=== PATIENT | female | born 1935 | race Caucasian/White ===

== ENCOUNTER → 2016-09-02 | Outpatient (REF) | payer MEDICARE ==
[~2016-09-02] MED LIST: ACET50TA PO; ASPI81TA85 PO; BISO5TAB54 PO; CALC600T7 PO; CALCTAB43 PO; CARB25TA PO; COLA100C PO; COUM2.5T11 PO; COZA50TA PO; DICL13PA TD; DRISDOL PO; FURO40TA2 PO; GABA300C3 PO; LASI20TA PO; LEVE250T2 PO; LEVO100T5 PO; LEVOXYL PO; LIDO1DIS2 TD; LIDO5DIS36 TD; LOSA25TA8 PO; LOSA50TA20 PO; METO25TA PO; MIRA1.5T2 PO; MULTCAP PO; MULTTAB33 PO; NATU400T PO; NEUR300C PO; NYST-6 TOP; NYST100024 TOP; NYST10006 TOP; NYST10CR EXT; NYST10PW TOP; OXYC1TAB23 PO; PERC5TAB6 PO; PRAM1.5T2 PO; PRAV80TA PO; PRAV80TA2 PO; SENO8.6T2 PO; SINE25TA5 PO; SINEMET PO; TYLENOL PO; VITA-130 PO; VITA100066 PO; VITA50003 PO; VITA500T88 PO; WOMECAP2 PO; ZEBE5TAB PO; [UNRECOGNIZED DRUG - SUPPLY]; astelin
[2016-09-02 12:37] LABS: ALBUMIN 3.5 GM/DL (3.2-5.2); ALBUMIN/GLOBULIN RATIO 1.17 (1.00-1.93); BILIRUBIN,TOTAL 0.3 MG/DL (0.2-1.0); CALCIUM LEVEL 9.1 MG/DL (8.8-10.2); CREATININE FOR GFR 1.04 MG/DL (0.55-1.02); FREE T4 1.09 NG/DL (0.76-1.46); GLOMERULAR FILTRATION RATE 54.3 (>32); POTASSIUM SERUM 4.5 MEQ/L (3.5-5.1); TOTAL PROTEIN 6.5 GM/DL (6.4-8.2)
== END ==
LOC: M SFHCPLAZ 08:53
PROVIDERS: ATTEND Nurse Practitioner Family
DX: I10 Essential (primary) hypertension (principal); E03.9 Hypothyroidism, unspecified; E55.9 Vitamin D deficiency, unspecified

== ENCOUNTER 2017-01-16 11:41 | Observation (INO) | payer MEDICARE ==
[~2017-01-16] VITALS: Ht 160 cm; Wt 103.8 kg
[~2017-01-16 11:41] MED LIST changes: -COLA100C PO; +COLA100C5 PO; -COUM2.5T11 PO; +COUM2.5T17 PO; +GABA-282 PO; -GABA300C3 PO; -LIDO5DIS36 TD; +LIDO5DIS41 TD; -NYST100024 TOP; +NYST1POW9 TOP; +PERC5TAB12 PO; -PERC5TAB6 PO; -SENO8.6T2 PO; +SENO8.6T5 PO; -VITA-130 PO; +VITA1CAP40 PO; -VITA50003 PO; +VITA500T PO
[2017-01-16 14:41] LABS: BASO % 0.4 % (0.0-1.0); EOS # 0.2 K/mm3 (0.0-0.50); EOS % 2.1 % (0.0-3.0); LARGE UNSTAINED CELL # 0.2 K/mm3 (0.0-0.4); LYMPH # 1.1 K/mm3 (1.5-4.5); LYMPH % 11.9 % (24.0-44.0); MEAN CORPUSCULAR HEMOGLOBIN 31.7 pg (27.0-33.0); MEAN CORPUSCULAR HGB CONC 33.6 g/dl (32.0-36.5); MEAN CORPUSCULAR VOLUME 94.4 fl (80.0-96.0); MONO # 0.4 K/mm3 (0.0-0.8); MONO % 4.7 % (0.0-5.0); NEUTROPHILS # 6.2 K/mm3 (1.8-7.7); PLATELET COUNT, AUTOMATED 196 k/mm3 (150-450); RED CELL DISTRIBUTION WIDTH 13.7 % (11.5-14.5); WHITE BLOOD COUNT 7.9 K/mm3 (4.0-10.0)
[2017-01-16 14:48] LABS: INR 0.96
[2017-01-16 15:08] LABS: ALBUMIN 3.6 GM/DL (3.2-5.2); ALBUMIN/GLOBULIN RATIO 1.13 (1.00-1.93); ALKALINE PHOSPHATASE 70 U/L (45-117); ALT/SGPT 19 U/L (12-78); ANION GAP 9 MEQ/L (8-16); AST/SGOT 14 U/L (15-37); BILIRUBIN,DIRECT 0.1 MG/DL (0.0-0.2); BILIRUBIN,TOTAL 0.4 MG/DL (0.2-1.0); BLOOD UREA NITROGEN 33 MG/DL (7-18); CALCIUM LEVEL 9.4 MG/DL (8.8-10.2); CARBON DIOXIDE LEVEL 32 MEQ/L (21-32); CHLORIDE LEVEL 98 MEQ/L (98-107); CREATININE FOR GFR 1.12 MG/DL (0.55-1.02); GLOMERULAR FILTRATION RATE 49.7 (>32); GLUCOSE, FASTING 109 MG/DL (83-110); SODIUM LEVEL 139 MEQ/L (136-145); TOTAL PROTEIN 6.8 GM/DL (6.4-8.2)
--- NOTE | 2017-01-16 15:54 | REP ---
AP and lateral seated chest: 01/16/2017 Comparison 11/10/2015, 07/26/2015. Clinical history: Dyspnea and cough. Findings: Two-view show the lungs hypoinflated, however, the heart size is not enlarged for this degree of inflation for technique. The aorta is calcified at the arch, mildly tortuous and there is some dextroconvex curvature of the mid and upper thoracic spine. Some underlying interstitial fibrotic changes seen. I do not see dense consolidation or definite effusion. No parenchymal mass or nodule. Degenerative changes and demineralization in the spine without acute compression deformity. Impression: 1. Hypoinflated chest with crowded markings but no dense consolidation, pleural effusion, cardiomegaly or nikolas edema. 2. Calcified tortuous aorta without aneurysm. Airway intact. 3. Degenerative changes in the spine. Signed by Frankie Bowens MD 01/16/2017 09:23 P
[2017-01-16] MEDS ORDERED: ISOVUE-370 76% 100ML VIAL (Q9967) As Ordered ONE (15:56)
[2017-01-16] MEDS ORDERED: NS 500 ML IV ONE (16:00)
--- NOTE | 2017-01-16 16:55 | REP ---
BILATERAL LOWER EXTREMITY DUPLEX VEINS: RIGHT LOWER EXTREMITY: HISTORY: Edema right lower extremity. There are no filling defects in the deep venous system. The deep venous system is patent. IMPRESSION: There is no deep venous thrombosis. LEFT LOWER EXTREMITY: There are no filling defects in the deep venous system. The deep venous system is patent. IMPRESSION: There is no deep venous thrombosis. Signed by Derek Dimas MD 01/16/2017 05:12 P
--- NOTE | 2017-01-16 17:04 | REP ---
CT angio chest 01/16/2017: Comparison 08/10/2013, chest x-ray 01/16/2017, 11/10/2015. History: Dyspnea, cough, elevated D-dimer. Lungs are adequately inflated. There is some minor dependent atelectatic changes posteriorly in the mid lower lung zones. There is some underlying minor basilar fibrotic changes but no pleural effusion, dense consolidation or parenchymal mass. Pleural based nodule left lower lobe is actually slightly smaller than last years CT in 2013. Heart size is borderline with left atrial enlargement but no pericardial thickening or effusion. The aorta is without aneurysm or dissection and has calcifications at the arch. The main, right and left pulmonary arteries and the mediastinum are without filling defects. Lobar arteries are also without filling defects. In the right lower lobe. The segmental vessels to the medial basal segment lateral basal segment show vessel cutoff and little or no flow. This is a change from the previous study suggesting a thrombus in both. The right lung base shows lateral basal segment poor flow suggesting a partial thrombus. There was better flow on the 2014 study. Mid midlung zones and upper lobes grossly intact. That portion of liver and spleen included were unchanged. No hiatal hernia. The upper abdominal aorta without aneurysm. Adrenal glands with some slight thickening of limbs but otherwise intact. Only a portion of liver and pancreas included were grossly intact. Impression: 1. There is CT evidence of vessel cutoff involving both lower lung zones in the medial lateral basal segments with poor flow in these vessels compared to the 2014 study. This may chronic or acute. Central pulmonary arteries and lobar arteries without filling defects. 2. The thoracic aorta without aneurysm or dissection. 3. Slightly smaller pleural-based nodule left upper lobe compared to the 2014 study. Some underlying dependent atelectasis and fibrosis. Signed by Frankie Bowens MD 01/16/2017 09:25 P
--- NOTE | 2017-01-16 18:43 | ECGEPIP ---
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 Order Number: [id number] Reading MD: Navid Kelly Measurements Intervals [place] Rate: 64 P: ME: 0 QRS: -21 QRSD: 113 T: -47 QT: 424 QTc: 439 Interpretive Statements SINUS RHYTHM WITH FIRST DEGREE AV BLOCK BORDERLINE LEFT AXIS DEVIATION MODERATE INTRAVENTRICULAR CONDUCTION DELAY BASELINE ARTIFACT AFFECTS INTERPRETATION Electronically Signed On 01-16-2017 18:43:18 EDT by Navid Kelly
[2017-01-16] MEDS ORDERED: ONDANSETRON 4MG/2ML VIAL (J2405) IV PRN (18:45)
[2017-01-16] MEDS ORDERED: ACETAMINOPHEN TAB 650MG DOSE (2X325MG) PO PRN (18:45)
--- NOTE | 2017-01-16 19:33 | HPEPDOC ---
Medical History and Physical Date of Admission Jan 16, 2017 at 18:34 History and Physical PRIMARY CARE PROVIDER: Adela Riojas ATTENDING: Dr. Osorio Rossi CHIEF COMPLAINT: Cough HISTORY OF PRESENT ILLNESS: This is a 81-year-old female past medical history Parkinson's disease, hypertension, hypothyroidism, hyperlipidemia, CK D stage III, baseline creatinine 1.1-1.2 presents complaining of a cough. Patient states she's had this nonproductive cough over the past 3-4 days. No fevers or chills. No nausea/vomiting/abdominal pain. Patient occasionally has palpitations. No chest pain. Does have dyspnea on exertion with mild to moderate exertion over the past year. Occasionally has PND. Sleeps on 2 pillows however does not know if she has orthopnea. States she has to falls over the past month however she's typically pretty stable on her feet as she's walking with a walker. In the ED patient had a CT of the chest which noted an acute versus chronic bilateral pulmonary embolism. Patient states she would like to be started on blood thinners tonight and we will consider continuing the blood thinners tomorrow. Risks and benefits of blood thinners including the treatment of her pulmonary embolism versus the risk of bleeding have been explained to the patient as well as the . PAST MEDICAL HISTORY: As per HPI PAST SURGICAL HISTORY: Right breast biopsy, varicose vein stripping, L4 laminectomy, knee surgery, back surgery SOCIAL HISTORY: Denies tobacco, alcohol, illicit drug use. Lives with her , walks with a walker. Breathing FAMILY HISTORY: noncontributory ALLERGIES: Please see below. REVIEW OF SYSTEMS: HEENT: Denies sore throat/headache CARDIOVASCULAR: Denies chest pain/palpitations RESPIRATORY: + shortness of breath/cough GASTROINTESTINAL: denies nausea/vomiting GENITOURINARY: Denies dysuria/urinary urgency. MUSCULOSKELETAL: Denies myalgias/arthralgias NEUROLOGICAL: Denies any focal weakness HOME MEDICATIONS: Please see below. PHYSICAL EXAMINATION: Vitals: (see below) General: No acute distress, laying comfortably in bed. HEENT: Moist mucous membranes. Neck: No JVD or lymphadenopathy Cardiac: RRR, No murmurs Pulm: Minimal coarse crackles at the bases bilaterally b/l. No wheezing, rhonchi Abd: NT/ND + BS Ext: 1+ edema bilateral lower extremities. Distal pulses intact. LABORATORY DATA: See below. IMAGING: CTA chest on 01/16/17 Impression: 1. There is CT evidence of vessel cutoff involving both lower lung zones in the medial lateral basal segments with poor flow in these vessels compared to the 2014 study. This may chronic or acute. Central pulmonary arteries and lobar arteries without filling defects. 2. The thoracic aorta without aneurysm or dissection. 3. Slightly smaller pleural-based nodule left upper lobe compared to the 2014 study. Some underlying dependent atelectasis and fibrosis. Bilateral lower extremity ultrasound negative for DVT 01/16/17 MICROBIOLOGY: Please see below. ASSESSMENT/PLAN: 1. Bilateral pulmonary embolus, acute versus chronic. We'll start the patient on Lovenox tonight pending determination of the patient's willingness to continue her blood thinners. If so, NOAC vs coumadin to be considered. Patient is hemodynamically stable and not hypoxic. We will obtain echocardiogram to determine RV function. The patient's the safety with ambulation to be assessed by physical therapy. Her on telemetry, especially given her history of palpitations. 2. Parkinson's disease- continue meds 3. Chronic disease stage III Baseline creatinine 1.1-1.2. Stable. Avoid nephrotoxins. Strict I/O 4. Hypothyroidism- continue meds 5. Hyperlipidemia- continue meds DVT prophylaxis- Lovenox Prognosis- guarded The patient has been signed out to Dr. Osorio Rossi we will continue following the patient. Vital Signs Vital Signs Date Time Temp Pulse Resp B/P (MAP) Pulse Ox O2 Delivery O2 Flow Rate FiO2 01/16/17 18:17 66 137/63 (87) 96 01/16/17 11:54 97.8 16 Room Air Laboratory Data Labs 24H Laboratory Tests 2 01/16/17 14:30: White Blood Count 7.9, Red Blood Count 3.96L, Hemoglobin 12.6, Hematocrit 37.4, Mean Corpuscular Volume 94.4, Mean Corpuscular Hemoglobin 31.7, Mean Corpuscular Hemoglobin Concent 33.6, Red Cell Distribution Width 13.7, Platelet Count 196, Neutrophils (%) (Auto) 79.0H, Lymphocytes (%) (Auto) 11.9L, Monocytes (%) (Auto) 4.7, Eosinophils (%) (Auto) 2.1, Basophils (%) (Auto) 0.4, Neutrophils # (Auto) 6.2, Lymphocytes # (Auto) 1.1L, Monocytes # (Auto) 0.4, Eosinophils # (Auto) 0.2, Basophils # (Auto) 0.0, Large Unclassified Cells % 2.0 , Large Unclassified Cells # 0.2, Prothrombin Time 12.9, Prothromb Time International Ratio 0.96, D-Dimer, Quantitative 2856.4H, Anion Gap 9, Glomerular Filtration Rate 49.7, Calcium Level 9.4, Aspartate Amino Transf (AST/ SGOT) 14L, Alanine Aminotransferase (ALT/SGPT) 19, Alkaline Phosphatase 70, Total Bilirubin 0.4, Direct Bilirubin 0.1, Total Creatine Kinase 42, Creatine Kinase MB 1.0, Creatine Kinase MB Relative Index 2.38, Troponin I < 0.02, B- Type Natriuretic Peptide 91.5, Total Protein 6.8, Albumin 3.6, Albumin/Globulin Ratio 1.13 01/16/17 19:02: CBC/BMP Laboratory Tests 01/16/17 14:30 Red Blood Count 3.96 L, Mean Corpuscular Volume 94.4, Mean Corpuscular Hemoglobin 31.7, Mean Corpuscular Hemoglobin Concent 33.6, Red Cell Distribution Width 13.7, Neutrophils (%) (Auto) 79.0 H, Lymphocytes (%) (Auto) 11.9 L, Monocytes (%) (Auto) 4.7, Eosinophils (%) (Auto) 2.1, Basophils (%) ( Auto) 0.4, Neutrophils # (Auto) 6.2, Lymphocytes # (Auto) 1.1 L, Monocytes # ( Auto) 0.4, Eosinophils # (Auto) 0.2, Basophils # (Auto) 0.0 Home Medications Scheduled Alpha Tocopheryl Acid Succinat (Vitamin E) 400 Unit Tab, 400 UNIT PO DAILY Ascorbic Acid (Vitamin C) 500 Mg Tab, 500 MG PO DAILY Aspirin (Aspir-81) 81 Mg Tab, 81 MG PO DAILY Bisoprolol Fumarate (Zebeta) 5 Mg Tab, 5 MG PO DAILY Calcium/Vitamin D (Calcium + D3 600-200 mg-Unit) 1 Tab Tab, 1 TAB PO QHS Carbidopa/Levodopa (Sinemet 25-100 mg) 1 Tab Tab, 1 TAB PO QID Cholecalciferol (Vitamin D) 1,000 Unit Tab, 1,000 UNIT PO DAILY Docusate Sodium (Colace) 100 Mg Cap, 100 MG PO BID Ergocalciferol (Vitamin D) 50,000 Unit Cap, 50,000 UNIT PO 1XWK MONDAY Furosemide (Furosemide) 40 Mg Tab, 40 MG PO BID Gabapentin (Gabapentin) 300 Mg Cap, 300 MG PO QHS Levothyroxine Sodium (Synthroid) 100 Mcg Tab, 100 MCG PO DAILY Losartan Potassium (Losartan Potassium) 25 Mg Tab, 25 MG PO QHS Pramipexole Dihydrochloride (Pramipexole Dihydrochlori) 1.5 Mg Tab, 1.5 MG PO BID Pravastatin Sodium (Pravachol) 80 Mg Tab, 80 MG PO DAILY Scheduled PRN Nystatin (Nystatin Powder) 100,000 Unit/Gm Pow, 1 DOSE TOP BIDP PRN for RASH APPLIED UNDER BREAST AND TO GROIN Senna (Senokot) 8.6 Mg Tab, 2 TAB PO QHSP PRN for CONSTIPATION Allergies Coded Allergies: No Known Drug Allergy (Unverified Allergy, Unknown, 09/19/12) DANIEL SWAIN MD Jan 16, 2017 19:33
--- NOTE | 2017-01-16 19:35 | ECGEPIP ---
Stationary ECG Study 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 Probable sinus rhythm Left axis deviation. Incomplete LBBB. Nonspecific ST/T-wave abnormalities No change from tracing earlier this same day Electronically Signed On 01-16-2017 19:34:41 EDT by Arvind Costa
[2017-01-16] MEDS ORDERED: METO25TA PO (19:44)
[2017-01-16] MEDS ORDERED: ASPI81TAEC PO (19:44)
[2017-01-16] MEDS ORDERED: BISO5TAB5 PO (19:44)
[2017-01-16] MEDS ORDERED: NYST10CR EXT (19:44)
[2017-01-16] MEDS ORDERED: POTA10CA PO (19:44)
[2017-01-16] MEDS ORDERED: GABA-279 PO (19:44)
[2017-01-16] MEDS ORDERED: VITMTA PO (19:44)
[2017-01-16] MEDS ORDERED: VIVIX PO (19:44)
[2017-01-16 20:08] LABS: INR 1.01
[2017-01-16] MEDS ORDERED: SLF 3 ML SYR IV PRN (20:15)
[2017-01-16] MEDS: POTASSIUM CHLORIDE 10 MEQ SR TABLET PO SCH (21:51)
[2017-01-16] MEDS: ENOXAPARIN 100MG/1ML SYRINGE (J1650) SC SCH (21:51)
[2017-01-16] MEDS: GABAPENTIN 100 MG CAP PO SCH (21:51)
[2017-01-16] MEDS: SINEMET 25-100 MG TAB PO SCH (21:52)
[2017-01-16] MEDS: LOSARTAN 25 MG TAB PO SCH (21:52)
[2017-01-16] MEDS: PRAMIPEXOLE 1 MG TAB PO SCH (21:53)
[2017-01-16] MEDS: SLF 3 ML SYR IV SCH (21:54)
[2017-01-16 23:59] VITALS: BP 112/57
[2017-01-17 04:33] VITALS: BP 122/59
[2017-01-17 04:38] LABS: MEAN CORPUSCULAR HEMOGLOBIN 31.7 pg (27.0-33.0); MEAN CORPUSCULAR HGB CONC 33.6 g/dl (32.0-36.5); MEAN CORPUSCULAR VOLUME 94.4 fl (80.0-96.0); RED CELL DISTRIBUTION WIDTH 13.8 % (11.5-14.5); WHITE BLOOD COUNT 6.4 K/mm3 (4.0-10.0)
[2017-01-17 05:22] LABS: ANION GAP 9 MEQ/L (8-16); BLOOD UREA NITROGEN 26 MG/DL (7-18); CALCIUM LEVEL 8.8 MG/DL (8.8-10.2); CARBON DIOXIDE LEVEL 31 MEQ/L (21-32); CHLORIDE LEVEL 100 MEQ/L (98-107); CREATININE FOR GFR 0.93 MG/DL (0.55-1.02); GLOMERULAR FILTRATION RATE > 60.0 (>32); GLUCOSE, FASTING 100 MG/DL (83-110); MAGNESIUM LEVEL 2.5 MG/DL (1.8-2.4); POTASSIUM SERUM 3.6 MEQ/L (3.5-5.1); SODIUM LEVEL 140 MEQ/L (136-145)
[2017-01-17] MEDS: SLF 3 ML SYR IV SCH ×3 (06:00→21:07)
[2017-01-17 07:46] VITALS: BP 138/65
[2017-01-17] MEDS: BISOPROLOL FUMARATE 5 MG TAB PO SCH (08:49)
[2017-01-17] MEDS: FUROSEMIDE 40 MG TAB PO SCH ×2 (08:49→12:28)
[2017-01-17] MEDS: ENOXAPARIN 100MG/1ML SYRINGE (J1650) SC SCH (08:49)
[2017-01-17] MEDS: LEVOTHYROXINE 100MCG TABLET (0.1MG) PO SCH (08:49)
[2017-01-17] MEDS: PRAMIPEXOLE 1 MG TAB PO SCH ×2 (08:50→17:33)
[2017-01-17] MEDS: SINEMET 25-100 MG TAB PO SCH ×4 (08:50→21:06)
[2017-01-17] MEDS ORDERED: NYSTATIN 100,000 UNITS/GM TOPICAL PWD 15 GM TOP PRN (09:30)
--- NOTE | 2017-01-17 10:48 | IPNPDOC ---
Subjective Date Seen The patient was seen on 01/17/17. Subjective Chief Complaint/HPI The patient is a 81-year-old female admitted with a reason for visit of Pulmonary Embolism. Events since last encounter Pt this mornins without new concerns. She reports that she feels like she has a cold, has had a cough that comes and goes and associated with the cough is burning sensation in her chest. She isn't really sure how long this has been present. She denies any SOB more than usual assoc with her symptoms. General: Denies: Fatigue Constitutional: Denies: Chills, Fever Pulmonary: Reports: Cough, Denies: Dyspnea Cardiovascular: Denies: Chest Pain, Palpitations Gastrointestinal: Denies: Nausea, Vomiting, Diarrhea Musculoskeletal: Denies: Neck Pain Neurological: Denies: Weakness Psych: Reports: Mood Normal Objective Physical Examination General Exam: Positive: Alert, No Acute Distress ENT Exam: Positive: Mucous membr. moist/pink Neck Exam: Positive: Supple Chest Exam: Positive: Clear to auscultation, Diminished Heart Exam: Positive: Rate Normal, Normal S1, Normal S2 Abdomen Exam: Positive: Normal bowel sounds, Soft, Negative: Tenderness Extremity Exam: Negative: Edema Neuro Exam: Positive: Normal Speech Psych Exam: Positive: Mental status NL Assessment /Plan Problems (1) Pulmonary embolism Status: Acute Response to Treatment: Stable Discussed With: Nurse, Patient Problem Specific Plan: Monitor Clinically, Repeat Labs Problem Text: Acute vs subacute - pt reports being rather sedentary, no recent falls or trauma. She is currently on Lovenox 100 mg per kg for treatment of her PE. D/w patient and and agreed on apixiban-will start tonight when Lovenox would be due (vit C and asa 81 are held-no h/o CVA/[place]-taking for primary prevention) 01/16/17 CTA chest [address] is CT evidence of vessel cutoff involving both lower lung zones in the medial lateral basal segments with poor flow in these vessels compared to the 2014 study. This may chronic or acute. Central pulmonary arteries and lobar arteries without filling defects 01/16/17 - BLE DVT US (2) Parkinson disease Status: Chronic Response to Treatment: Stable Problem Specific Plan: Monitor Clinically Problem Text: This increases her fall risk although she reports no recent falls and the fall she suffered several months ago were in relation to loose throw rugs in her home which have since bene removed. (3) CKD (chronic kidney disease) stage 3, GFR 30-59 ml/min Status: Chronic Response to Treatment: Stable Problem Specific Plan: Monitor Clinically Problem Text: baseline cr 0.9-1.0 Plan/VTE VTE Prophylaxis Ordered?: Yes VS, I&O, 24H, Fishbone Vital Signs/I&O Vital Signs Date Time Temp Pulse Resp B/P (MAP) Pulse Ox O2 Delivery O2 Flow Rate FiO2 01/17/17 08:49 62 138/65 01/17/17 07:46 97.5 18 97 Room Air I&O- Last 24 Hours up to 6 AM 01/17/17 06:00 Intake Total 0 ml Output Total 350 ml Balance -350 ml Laboratory Data 24H LABS Laboratory Tests 2 01/16/17 14:30: White Blood Count 7.9, Red Blood Count 3.96L, Hemoglobin 12.6, Hematocrit 37.4, Mean Corpuscular Volume 94.4, Mean Corpuscular Hemoglobin 31.7, Mean Corpuscular Hemoglobin Concent 33.6, Red Cell Distribution Width 13.7, Platelet Count 196, Neutrophils (%) (Auto) 79.0H, Lymphocytes (%) (Auto) 11.9L, Monocytes (%) (Auto) 4.7, Eosinophils (%) (Auto) 2.1, Basophils (%) (Auto) 0.4, Neutrophils # (Auto) 6.2, Lymphocytes # (Auto) 1.1L, Monocytes # (Auto) 0.4, Eosinophils # (Auto) 0.2, Basophils # (Auto) 0.0, Large Unclassified Cells % 2.0 , Large Unclassified Cells # 0.2, Prothrombin Time 12.9, Prothromb Time International Ratio 0.96, D-Dimer, Quantitative 2856.4H, Anion Gap 9, Glomerular Filtration Rate 49.7, Calcium Level 9.4, Aspartate Amino Transf (AST/ SGOT) 14L, Alanine Aminotransferase (ALT/SGPT) 19, Alkaline Phosphatase 70, Total Bilirubin 0.4, Direct Bilirubin 0.1, Total Creatine Kinase 42, Creatine Kinase MB 1.0, Creatine Kinase MB Relative Index 2.38, Troponin I < 0.02, B- Type Natriuretic Peptide 91.5, Total Protein 6.8, Albumin 3.6, Albumin/Globulin Ratio 1.13 01/16/17 19:02: Prothrombin Time 13.4, Prothromb Time International Ratio 1.01, Total Creatine Kinase 40, Creatine Kinase MB 1.0, Creatine Kinase MB Relative Index 2.50, Troponin I < 0.02 01/17/17 04:04: Anion Gap 9, Glomerular Filtration Rate > 60.0, Calcium Level 8.8, Total Creatine Kinase 41, Creatine Kinase MB 1.0, Creatine Kinase MB Relative Index 2.43, Troponin I < 0.02, Blood Urea Nitrogen 26H, Creatinine 0.93, Sodium Level 140, Potassium Level 3.6, Chloride Level 100, Carbon Dioxide Level 31, Magnesium Level 2.5H 01/17/17 09:48: Total Creatine Kinase 44, Creatine Kinase MB 1.0, Creatine Kinase MB Relative Index 2.27, Troponin I < 0.02 CBC/BMP Laboratory Tests 01/16/17 14:30 Red Blood Count 3.96 L, Mean Corpuscular Volume 94.4, Mean Corpuscular Hemoglobin 31.7, Mean Corpuscular Hemoglobin Concent 33.6, Red Cell Distribution Width 13.7, Neutrophils (%) (Auto) 79.0 H, Lymphocytes (%) (Auto) 11.9 L, Monocytes (%) (Auto) 4.7, Eosinophils (%) (Auto) 2.1, Basophils (%) ( Auto) 0.4, Neutrophils # (Auto) 6.2, Lymphocytes # (Auto) 1.1 L, Monocytes # ( Auto) 0.4, Eosinophils # (Auto) 0.2, Basophils # (Auto) 0.0 01/17/17 04:04 Red Blood Count 3.67 L, Mean Corpuscular Volume 94.4, Mean Corpuscular Hemoglobin 31.7, Mean Corpuscular Hemoglobin Concent 33.6, Red Cell Distribution Width 13.8, Calcium Level 8.8 DUSTIN SHANNON PA-C Jan 17, 2017 10:48 Blair Madden M.D. Jan 17, 2017 15:14
[2017-01-17 11:29] VITALS: BP 117/62
[2017-01-17 15:51] VITALS: BP 103/53
[2017-01-17] MEDS: POTASSIUM CHLORIDE 10 MEQ SR TABLET PO SCH (17:33)
[2017-01-17 19:33] VITALS: BP 110/53
[2017-01-17] MEDS ORDERED: ASCORBIC ACID 500 MG TAB PO SCH (21:00)
[2017-01-17] MEDS: GABAPENTIN 100 MG CAP PO SCH (21:06)
[2017-01-17] MEDS: LOSARTAN 25 MG TAB PO SCH (21:06)
[2017-01-17] MEDS: APIXABAN 5 MG TAB (ELIQUIS) PO SCH (21:06)
--- NOTE | 2017-01-17 21:21 | ECHO ---
DATE OF PROCEDURE: 01/17/2017 REFERRING PHYSICIAN: Dr. Arley Thomas and Dr. Rossi INDICATION: Pulmonary embolism. Study was performed on 01/17/2017. The patient measures 160 cm and weighs 104 kg. DIMENSIONS: IVS: 1.1 LV: 5.3 LVPW: 1.1 LA: 4.2 Aorta: 2.9 FINDINGS: The study is of fair technical quality corresponding to patient's body habitus. Left ventricle is of normal size and systolic function with estimated ejection fraction (EF) around 60-65%. Right ventricle was relatively poorly seen. It is not dilated and appears to be normally contractile. Left atrium is at least mildly enlarged, right atrium appears normal. No pericardial effusion is noted. Aortic, mitral and tricuspid valves were reasonably well seen and appear normal. Pulmonic valve was not well seen. Inferior vena cava is of normal size and appropriately collapses with respiration indicative of likely normal central venous pressure. Aortic root is normal. Aortic arch was not well seen. There is atherosclerosis apparent in abdominal aorta. Doppler interrogation reveals competent aortic and mitral valves. There is also no significant tricuspid insufficiency and consequently pulmonary artery pressure was not adequately estimated. Mitral inflow pattern and tissue Doppler imaging of mitral annulus revealed grade 1 diastolic dysfunction. CONCLUSIONS: 1. Study is of fair technical quality. 2. Normal LV size with normal LV systolic function and grade 1 diastolic dysfunction. 3. Normal RV size and systolic function. 4. No significant valvular disease. 5. Likely normal central venous pressure. 6. Unable to estimate pulmonary artery pressure. COMMENTS: Subacute bacterial endocarditis (SBE) prophylaxis is not recommended. The study argues against hemodynamic significance of pulmonary embolism.
[2017-01-17 23:52] VITALS: BP 112/55
[2017-01-18 03:57] VITALS: BP 115/57
[2017-01-18] MEDS: SLF 3 ML SYR IV SCH ×3 (05:31→21:50)
[2017-01-18 05:58] LABS: MEAN CORPUSCULAR HEMOGLOBIN 32.3 pg (27.0-33.0); MEAN CORPUSCULAR HGB CONC 33.9 g/dl (32.0-36.5); MEAN CORPUSCULAR VOLUME 95.3 fl (80.0-96.0); RED CELL DISTRIBUTION WIDTH 13.8 % (11.5-14.5)
[2017-01-18 06:15] LABS: CREATININE FOR GFR 0.99 MG/DL (0.55-1.02); GLOMERULAR FILTRATION RATE 57.3 (>32); MAGNESIUM LEVEL 2.3 MG/DL (1.8-2.4); POTASSIUM SERUM 3.3 MEQ/L (3.5-5.1)
[2017-01-18 08:00] VITALS: BP 140/65
[2017-01-18] MEDS ORDERED: POTASSIUM CHLORIDE 10 MEQ SR TABLET PO ONE (08:45)
[2017-01-18] MEDS: APIXABAN 5 MG TAB (ELIQUIS) PO SCH ×2 (08:50→21:50)
[2017-01-18] MEDS: SINEMET 25-100 MG TAB PO SCH ×4 (08:50→21:49)
[2017-01-18] MEDS: LEVOTHYROXINE 100MCG TABLET (0.1MG) PO SCH (08:50)
[2017-01-18] MEDS: BISOPROLOL FUMARATE 5 MG TAB PO SCH (08:50)
[2017-01-18] MEDS: FUROSEMIDE 40 MG TAB PO SCH ×2 (08:50→13:49)
[2017-01-18] MEDS: PRAMIPEXOLE 1 MG TAB PO SCH ×2 (08:50→17:50)
[2017-01-18] MEDS ORDERED: ELIQ5TAB PO (09:01)
--- NOTE | 2017-01-18 09:17 | IPNPDOC ---
Subjective Date Seen The patient was seen on 01/18/17. Subjective Chief Complaint/HPI The patient is a 81-year-old female admitted with a reason for visit of Pulmonary Embolism. Events since last encounter Pt denies any SOB or CP. Constitutional: Denies: Chills, Fever Pulmonary: Denies: Dyspnea Cardiovascular: Denies: Chest Pain, Palpitations Gastrointestinal: Denies: Nausea, Vomiting, Abdominal Pain Objective Physical Examination General Exam: Positive: Alert, No Acute Distress ENT Exam: Positive: Mucous membr. moist/pink Neck Exam: Positive: Supple Chest Exam: Positive: Clear to auscultation, Diminished Heart Exam: Positive: Rate Normal, Normal S1, Normal S2 Abdomen Exam: Positive: Normal bowel sounds, Soft, Negative: Tenderness Extremity Exam: Negative: Edema Neuro Exam: Positive: Normal Speech Psych Exam: Positive: Mental status NL Assessment /Plan Problems (1) Pulmonary embolism Status: Acute Response to Treatment: Stable Discussed With: Nurse, Patient Problem Specific Plan: Monitor Clinically, Repeat Labs Problem Text: 01/18 - On Eliquis. Script sent in and PFS checking on auth. Pt working with PT who feel pt not yet safe and needs another 24 hrs. Plan on D/C tomorrow if cleared by PT. 01/17 - Acute vs subacute - pt reports being rather sedentary, no recent falls or trauma. She is currently on Lovenox 100 mg per kg for treatment of her PE. D/ w patient and and agreed on apixiban-will start tonight when Lovenox would be due (vit C and asa 81 are held-no h/o CVA/[place]-taking for primary prevention) 01/16/17 CTA chest There is CT evidence of vessel cutoff involving both lower lung zones in the medial lateral basal segments with poor flow in these vessels compared to the 2014 study. This may chronic or acute. Central pulmonary arteries and lobar arteries without filling defects (2) Parkinson disease Status: Chronic Response to Treatment: Stable Problem Specific Plan: Monitor Clinically Problem Text: This increases her fall risk although she reports no recent falls and the fall she suffered several months ago were in relation to loose throw rugs in her home which have since been removed. (3) CKD (chronic kidney disease) stage 3, GFR 30-59 ml/min Status: Chronic Response to Treatment: Stable Problem Specific Plan: Monitor Clinically Problem Text: baseline cr 0.9-1.0 Plan/VTE VTE Prophylaxis Ordered?: Yes Plan Family Medicine Attending Note: I saw and examined Ms. Lopez this morning; I d/w CAREY Goldman and I agree with his note above. From standpoint of PE, she is stable for discharge but PT feels that she needs another day of therapy to be safe for discharge. Will plan to d/c in the morning. (KES) VS, I&O, 24H, Fishbone Vital Signs/I&O Vital Signs Date Time Temp Pulse Resp B/P (MAP) Pulse Ox O2 Delivery O2 Flow Rate FiO2 01/18/17 08:50 62 140/65 01/18/17 08:00 97.8 18 91 Room Air I&O- Last 24 Hours up to 6 AM 01/18/17 05:59 Intake Total 900 ml Output Total 850 ml Balance 50 ml Laboratory Data 24H LABS Laboratory Tests 2 01/17/17 09:48: Total Creatine Kinase 44, Creatine Kinase MB 1.0, Creatine Kinase MB Relative Index 2.27, Troponin I < 0.02 01/18/17 05:12: Anion Gap 9, Glomerular Filtration Rate 57.3, Blood Urea Nitrogen 22H, Creatinine 0.99, Sodium Level 141, Potassium Level 3.3L, Chloride Level 102, Carbon Dioxide Level 30, Calcium Level 9.0, Magnesium Level 2.3 CBC/BMP Laboratory Tests 01/18/17 05:12 Red Blood Count 3.58 L, Mean Corpuscular Volume 95.3, Mean Corpuscular Hemoglobin 32.3, Mean Corpuscular Hemoglobin Concent 33.9, Red Cell Distribution Width 13.8, Calcium Level 9.0 Angelito Fernandes Jan 18, 2017 09:17 SUN MICHAUD MD Jan 18, 2017 09:32
[2017-01-18 11:58] VITALS: BP 136/86
[2017-01-18 14:00] VITALS: BP 145/69
[2017-01-18] MEDS: POTASSIUM CHLORIDE 10 MEQ SR TABLET PO SCH (17:51)
[2017-01-18 18:00] VITALS: BP 146/70
[2017-01-18] MEDS: GABAPENTIN 100 MG CAP PO SCH (21:49)
[2017-01-18] MEDS: LOSARTAN 25 MG TAB PO SCH (21:50)
[2017-01-18 22:00] VITALS: BP 131/63
[2017-01-19 02:00] VITALS: BP 133/64
[2017-01-19] MEDS: SLF 3 ML SYR IV SCH ×2 (05:19→14:00)
[2017-01-19 06:00] VITALS: BP 118/58
[2017-01-19 07:09] LABS: MEAN CORPUSCULAR HEMOGLOBIN 31.7 pg (27.0-33.0); MEAN CORPUSCULAR VOLUME 93.4 fl (80.0-96.0); RED CELL DISTRIBUTION WIDTH 13.8 % (11.5-14.5); WHITE BLOOD COUNT 6.5 K/mm3 (4.0-10.0)
[2017-01-19 07:24] LABS: CALCIUM LEVEL 8.5 MG/DL (8.8-10.2); CREATININE FOR GFR 1.09 MG/DL (0.55-1.02); GLOMERULAR FILTRATION RATE 51.3 (>32); MAGNESIUM LEVEL 2.2 MG/DL (1.8-2.4); POTASSIUM SERUM 3.5 MEQ/L (3.5-5.1)
[2017-01-19] MEDS: PRAMIPEXOLE 1 MG TAB PO SCH (08:28)
[2017-01-19] MEDS: APIXABAN 5 MG TAB (ELIQUIS) PO SCH (08:28)
[2017-01-19 08:29] VITALS: BP 118/58
[2017-01-19] MEDS: BISOPROLOL FUMARATE 5 MG TAB PO SCH (08:29)
[2017-01-19] MEDS: SINEMET 25-100 MG TAB PO SCH ×2 (08:29→12:58)
[2017-01-19] MEDS: FUROSEMIDE 40 MG TAB PO SCH ×2 (08:29→12:58)
[2017-01-19] MEDS: LEVOTHYROXINE 100MCG TABLET (0.1MG) PO SCH (08:29)
[2017-01-19 10:00] VITALS: BP 140/72
--- NOTE | 2017-01-20 12:08 | DSES ---
DATE OF ADMISSION: 01/16/2017 DATE OF DISCHARGE: 01/19/2017 PRIMARY CARE PHYSICIAN: Adela Riojas NP ATTENDING TODAY: Blair Madden MD HISTORY: This is an 81-year-old female who has Parkinson's disease, hypertension, hypothyroidism, and chronic kidney disease who presented with a nonproductive cough as well as a burning sensation in her chest and occasional palpitations over the last several days. She was evaluated in the emergency room and was found to have acute versus subacute bilateral pulmonary emboli. She was started on Lovenox for anticoagulation after counseling in regards to nursing home options for anticoagulation. It was opted to initiate Eliquis which was started on January 17. She has remained medically stable during her hospitalization. She has been seen by physical therapy who today feel as though she is safe to be discharged home. DISCHARGE DIAGNOSES: Include: Acute versus subacute bilateral pulmonary emboli. Parkinson's disease. Chronic kidney disease. DISCHARGE MEDICATIONS: Include: - Eliquis 5 mg by mouth twice a day - vitamin C 500 mg by mouth at bedtime - bisoprolol 5 mg by mouth daily - Sinemet 25/100 one tablet by mouth four times daily - vitamin D 1000 units by mouth at bedtime - furosemide 40 mg twice daily - gabapentin 100 mg daily - levothyroxine 100 mcg by mouth daily - losartan 25 mg by mouth before bed - metolazone 2.5 mg every other day - multivitamin one tablet daily - nystatin twice daily as needed for rash - potassium chloride 20 mEq by mouth before bed - pramipexole 1.5 mg twice daily - Vivix one capsule daily DISCHARGE PLAN: Followup with Adela Riojas in one week. ACTIVITY: Should be as tolerated. DIET: Should be no added salt.
== END 2017-01-19 15:13 | disposition home or self-care (01) ==
LOC: M ED 11:41 → M ED INP 18:34 → M PCU 19:57 → M MS5PR 01-18 11:27
PROVIDERS: ADMIT Internal Medicine; ATTEND Family Medicine
DX: I26.99 Other pulmonary embolism without acute cor pulmonale (principal); G20 Parkinson's disease; I10 Essential (primary) hypertension; N18.3 Chronic kidney disease, stage 3 (moderate); E03.9 Hypothyroidism, unspecified; Z79.02 Long term (current) use of antithrombotics/antiplatelets; Z79.899 Other long term (current) drug therapy; R06.02 Shortness of breath
CPT/HCPCS: 36415; 71020; 71275; 80048; 80076; 82550; 82553; 83735; 83880; 84484; 85025; 85027; 85379; 85610; 93005; 93041; 93306; 93970; 94760; 96372; 97116; 97161; 97530; 99285; G0378; J1650; Q9967

== ENCOUNTER → 2017-03-09 | Outpatient (REF) | payer MEDICARE ==
[~2017-03-09] MED LIST changes: +ASPI81TAEC PO; +BISO5TAB5 PO; +ELIQ5TAB PO; +GABA-279 PO; +POTA10CA PO; +VITMTA PO; +VIVIX PO
[2017-03-09 18:13] LABS: ALBUMIN 3.6 GM/DL (3.2-5.2); ALBUMIN/GLOBULIN RATIO 1.06 (1.00-1.93); BILIRUBIN,TOTAL 0.4 MG/DL (0.2-1.0); CALCIUM LEVEL 9.5 MG/DL (8.8-10.2); CREATININE FOR GFR 1.48 MG/DL (0.55-1.02); FREE T4 1.3 NG/DL (0.76-1.46); POTASSIUM SERUM 3.1 MEQ/L (3.5-5.1)
[2017-03-09 18:49] LABS: MEAN CORPUSCULAR HGB CONC 34.1 g/dl (32.0-36.5); MEAN CORPUSCULAR VOLUME 93.8 fl (80.0-96.0); RED CELL DISTRIBUTION WIDTH 13.7 % (11.5-14.5); WHITE BLOOD COUNT 7.3 K/mm3 (4.0-10.0)
== END ==
LOC: M SFHCPLAZ 15:51
PROVIDERS: ATTEND Nurse Practitioner Family
DX: I26.99 Other pulmonary embolism without acute cor pulmonale (principal); I10 Essential (primary) hypertension; E03.9 Hypothyroidism, unspecified; E55.9 Vitamin D deficiency, unspecified
CPT/HCPCS: 80053; 82306; 84439; 84443; 85027; G0463

== ENCOUNTER → 2017-03-30 | Outpatient (REF) | payer MEDICARE ==
[2017-03-30 19:02] LABS: CALCIUM LEVEL 9.3 MG/DL (8.8-10.2); CREATININE FOR GFR 1.43 MG/DL (0.55-1.02); GLOMERULAR FILTRATION RATE 37.5 (>32); POTASSIUM SERUM 4.4 MEQ/L (3.5-5.1)
== END ==
LOC: M SFHCPLAZ 15:14
PROVIDERS: ATTEND Nurse Practitioner Family
DX: I10 Essential (primary) hypertension (principal)
CPT/HCPCS: 36415; 80048; 90662; G0008; G0463

== ENCOUNTER → 2017-09-28 | Outpatient (REF) | payer OTHER ==
[2017-09-28 18:39] LABS: HEMATOCRIT 40.1 % (36.0-47.0); HEMOGLOBIN 12.8 g/dl (12.0-15.5); MEAN CORPUSCULAR HEMOGLOBIN 31.2 pg (27.0-33.0); MEAN CORPUSCULAR HGB CONC 31.9 g/dl (32.0-36.5); MEAN CORPUSCULAR VOLUME 97.8 fl (80.0-96.0); PLATELET COUNT, AUTOMATED 189 10^3/uL (150-450); RED CELL DISTRIBUTION WIDTH 14.6 % (11.5-14.5); WHITE BLOOD COUNT 6.5 10^3/uL (4.0-10.0)
[2017-09-28 18:46] LABS: TOTAL 25(OH) VITAMIN D 27.1 NG/ML (30.0-100.0)
[2017-09-28 18:51] LABS: ALBUMIN 3.6 GM/DL (3.2-5.2); ALKALINE PHOSPHATASE 72 U/L (45-117); ALT/SGPT 16 U/L (12-78); ANION GAP 6 MEQ/L (8-16); AST/SGOT 14 U/L (7-37); BILIRUBIN,TOTAL 0.3 MG/DL (0.2-1.0); BLOOD UREA NITROGEN 24 MG/DL (7-18); CARBON DIOXIDE LEVEL 32 MEQ/L (21-32); CHLORIDE LEVEL 104 MEQ/L (98-107); CREATININE FOR GFR 0.98 MG/DL (0.55-1.30); FREE T4 1.13 NG/DL (0.76-1.46); GLOMERULAR FILTRATION RATE 57.8 (>32); GLUCOSE, FASTING 100 MG/DL (70-100); POTASSIUM SERUM 4.3 MEQ/L (3.5-5.1); SODIUM LEVEL 142 MEQ/L (136-145); TOTAL PROTEIN 7.2 GM/DL (6.4-8.2)
== END ==
LOC: M SFHCPLAZ 14:44
DX: E03.9 Hypothyroidism, unspecified (principal); I10 Essential (primary) hypertension; E55.9 Vitamin D deficiency, unspecified; I26.99 Other pulmonary embolism without acute cor pulmonale
CPT/HCPCS: 84443

== ENCOUNTER 2017-10-31 23:55 | Emergency (ER) | payer OTHER | END 2017-11-01 03:21 | disposition home or self-care (01) | LOC: M ED 23:55 | DX: S80.01XA Contusion of right knee, initial encounter (principal); S80.02XA Contusion of left knee, initial encounter; G20 Parkinson's disease; W19.XXXA Unspecified fall, initial encounter; Y92.099 Unspecified place in other non-institutional residence as the place of occurrence of the external cause; Y93.89 Activity, other specified; Y99.9 Unspecified external cause status; I10 Essential (primary) hypertension; N18.3 Chronic kidney disease, stage 3 (moderate); Z79.82 Long term (current) use of aspirin; Z79.899 Other long term (current) drug therapy | CPT/HCPCS: 73564 ==

== ENCOUNTER → 2017-11-28 | Outpatient (REF) | payer OTHER | LOC: M SFHCPLAZ 15:17 | DX: R32 Unspecified urinary incontinence (principal) | CPT/HCPCS: 87088; 87186 ==

== ENCOUNTER → 2018-01-11 | Outpatient (REF) | payer OTHER ==
[2018-01-11 14:42] LABS: ANION GAP 10 MEQ/L (8-16); BLOOD UREA NITROGEN 36 MG/DL (7-18); CALCIUM LEVEL 9.4 MG/DL (8.8-10.2); CARBON DIOXIDE LEVEL 33 MEQ/L (21-32); CHLORIDE LEVEL 97 MEQ/L (98-107); CREATININE FOR GFR 1.42 MG/DL (0.55-1.30); GLOMERULAR FILTRATION RATE 37.7 (>32); GLUCOSE, FASTING 219 MG/DL (70-100); POTASSIUM SERUM 2.8 MEQ/L (3.5-5.1); SODIUM LEVEL 140 MEQ/L (136-145)
== END ==
LOC: M SFHCPLAZ 14:09
DX: I10 Essential (primary) hypertension (principal)
CPT/HCPCS: 80048

== ENCOUNTER → 2018-01-15 | Outpatient (REF) | payer OTHER ==
[2018-01-15 12:38] LABS: ANION GAP 11 MEQ/L (8-16); BLOOD UREA NITROGEN 28 MG/DL (7-18); CALCIUM LEVEL 9.3 MG/DL (8.8-10.2); CARBON DIOXIDE LEVEL 32 MEQ/L (21-32); CHLORIDE LEVEL 99 MEQ/L (98-107); CREATININE FOR GFR 1.39 MG/DL (0.55-1.30); GLOMERULAR FILTRATION RATE 38.6 (>32); GLUCOSE, FASTING 167 MG/DL (70-100); POTASSIUM SERUM 3.1 MEQ/L (3.5-5.1); SODIUM LEVEL 142 MEQ/L (136-145)
== END ==
LOC: M SFHCPLAZ 09:06
DX: I10 Essential (primary) hypertension (principal); E87.6 Hypokalemia
CPT/HCPCS: 80048

== ENCOUNTER → 2018-01-30 | Outpatient (REF) | payer OTHER ==
[2018-01-30 12:49] LABS: ANION GAP 10 MEQ/L (8-16); BLOOD UREA NITROGEN 20 MG/DL (7-18); CARBON DIOXIDE LEVEL 27 MEQ/L (21-32); CHLORIDE LEVEL 106 MEQ/L (98-107); CREATININE FOR GFR 1.18 MG/DL (0.55-1.30); GLOMERULAR FILTRATION RATE 46.7 (>32); GLUCOSE, FASTING 109 MG/DL (70-100); POTASSIUM SERUM 4.8 MEQ/L (3.5-5.1); SODIUM LEVEL 143 MEQ/L (136-145)
== END ==
LOC: M SFHCPLAZ 09:05
DX: R60.0 Localized edema (principal)
CPT/HCPCS: 80048

== ENCOUNTER → 2018-08-28 | Outpatient (REF) | payer MEDICARE ==
[~2018-08-28] MED LIST changes: -CARB25TA PO; +CARB25TA9 PO; +CEPH500C PO; +FURO20TA2 PO; +GABA-1171 PO; -GABA-279 PO; -GABA-282 PO; +GABA-843 PO; +K-TA1TAB PO; +KLOR10TA76 PO; +LASI20TA3 PO; +LOSA25TA14 PO; -LOSA25TA8 PO; +MAGN1CAP PO; -POTA10CA PO; +POTA1TAB23 PO; -PRAM1.5T2 PO; +PRAM1.5T5 PO; -VITA1CAP40 PO; +VITA400C67 PO; +VITA50005 PO
[2018-08-28 12:42] LABS: ALBUMIN 3.6 GM/DL (3.2-5.2); BILIRUBIN,TOTAL 0.5 MG/DL (0.2-1.0); CALCIUM LEVEL 9.1 MG/DL (8.8-10.2); CREATININE FOR GFR 1.06 MG/DL (0.55-1.30); FREE T4 1.44 NG/DL (0.76-1.46); GLOMERULAR FILTRATION RATE 52.8 (>32); MAGNESIUM LEVEL 2.6 MG/DL (1.8-2.4); POTASSIUM SERUM 4.1 MEQ/L (3.5-5.1); THYROID STIMULATING HORMONE 4.15 uIU/ML (0.358-3.740); TOTAL PROTEIN 7.3 GM/DL (6.4-8.2)
[2018-08-28 13:33] LABS: TOTAL 25(OH) VITAMIN D 24.4 NG/ML (30.0-100.0)
[2018-08-28 13:34] LABS: FOLATE 14.7 NG/ML
== END ==
LOC: M SFHCPLAZ 09:37
PROVIDERS: ATTEND Nurse Practitioner Family
DX: I10 Essential (primary) hypertension (principal); E03.9 Hypothyroidism, unspecified; R53.1 Weakness; G63 Polyneuropathy in diseases classified elsewhere

== ENCOUNTER → 2019-03-13 | Outpatient (REF) | payer MEDICARE ==
[~2019-03-13] MED LIST changes: -ACET50TA PO; -BISO5TAB5 PO; +BISO5TAB9 PO; +MAPA500T17 PO; +NYST-15 TOP; +NYST100029 EXT; -NYST10PW TOP
[2019-03-13 12:01] LABS: ALBUMIN 3.6 GM/DL (3.2-5.2); BILIRUBIN,TOTAL 0.4 MG/DL (0.2-1.0); CALCIUM LEVEL 9.1 MG/DL (8.8-10.2); CREATININE FOR GFR 1.05 MG/DL (0.55-1.30); FREE T4 1.34 NG/DL (0.76-1.46); GLOMERULAR FILTRATION RATE 53.3 (>32); POTASSIUM SERUM 4.3 MEQ/L (3.5-5.1); THYROID STIMULATING HORMONE 3.01 uIU/ML (0.358-3.740); TOTAL PROTEIN 6.9 GM/DL (6.4-8.2)
[2019-03-13 13:01] LABS: TOTAL 25(OH) VITAMIN D 30.1 NG/ML (30.0-100.0)
== END ==
LOC: M SFHCPLAZ 08:37
PROVIDERS: ATTEND Nurse Practitioner Family
DX: I10 Essential (primary) hypertension (principal); E03.9 Hypothyroidism, unspecified; E55.9 Vitamin D deficiency, unspecified; Z79.899 Other long term (current) drug therapy

== ENCOUNTER → 2019-08-29 | Outpatient (REF) | payer MEDICARE ==
[~2019-08-29] MED LIST changes: +BISO5TAB14 PO; -BISO5TAB9 PO
[2019-08-29 14:25] LABS: CALCIUM LEVEL 9.5 MG/DL (8.8-10.2); CREATININE FOR GFR 1.04 MG/DL (0.55-1.30); FREE T4 1.45 NG/DL (0.76-1.46); GLOMERULAR FILTRATION RATE 53.9 (>32); POTASSIUM SERUM 4.1 MEQ/L (3.5-5.1); THYROID STIMULATING HORMONE 2.29 uIU/ML (0.358-3.740)
== END ==
LOC: M SFHCPLAZ 10:22
PROVIDERS: ATTEND Nurse Practitioner Family
DX: E03.9 Hypothyroidism, unspecified (principal); I10 Essential (primary) hypertension

== ENCOUNTER → 2020-04-30 | Outpatient (REF) | payer MEDICARE ==
[~2020-04-30] MED LIST changes: +ASPI81TA86 PO; +CALC-212 PO; -CALC600T7 PO; +VITA-243 PO; -VITA500T PO
[2020-04-30 16:12] LABS: ALBUMIN 3.4 GM/DL (3.2-5.2); BILIRUBIN,TOTAL 0.5 MG/DL (0.2-1.0); CREATININE FOR GFR 1.15 MG/DL (0.55-1.30); FREE T4 1.19 NG/DL (0.76-1.46); GLOMERULAR FILTRATION RATE 47.9 (>32); POTASSIUM SERUM 3.9 MEQ/L (3.5-5.1); THYROID STIMULATING HORMONE 2.29 uIU/ML (0.358-3.740); TOTAL PROTEIN 6.9 GM/DL (6.4-8.2)
== END ==
LOC: M PLALAB 11:58
PROVIDERS: ATTEND Nurse Practitioner Family
DX: E03.9 Hypothyroidism, unspecified (principal); I10 Essential (primary) hypertension

== ENCOUNTER → 2020-09-24 | Outpatient (REF) | payer MEDICARE ==
[~2020-09-24] MED LIST changes: +ASPI-569 PO; -ASPI81TAEC PO; +GABA-282 PO; -GABA-843 PO
[2020-09-24 18:00] LABS: ALBUMIN 3.5 GM/DL (3.2-5.2); ALT/SGPT 22 U/L (12-78); BILIRUBIN,TOTAL 0.3 MG/DL (0.2-1.0); BLOOD UREA NITROGEN 33 MG/DL (7-18); CALCIUM LEVEL 9.4 MG/DL (8.8-10.2); CARBON DIOXIDE LEVEL 33 MEQ/L (21-32); CHLORIDE LEVEL 105 MEQ/L (98-107); FREE T4 1.22 NG/DL (0.76-1.46); GLOMERULAR FILTRATION RATE > 60.0 (>32); GLUCOSE, FASTING 110 MG/DL (70-100); MAGNESIUM LEVEL 2.3 MG/DL (1.8-2.4); SODIUM LEVEL 141 MEQ/L (136-145); TOTAL PROTEIN 6.9 GM/DL (6.4-8.2)
[2020-09-24 18:03] LABS: TOTAL 25(OH) VITAMIN D 21.1 NG/ML (30.0-100.0)
[2020-09-24 18:04] LABS: HEMOGLOBIN A1c 6.3 %
== END ==
LOC: M SFHCPLAZ 15:44
PROVIDERS: ATTEND Nurse Practitioner Family
DX: E55.9 Vitamin D deficiency, unspecified (principal); I10 Essential (primary) hypertension; R73.09 Other abnormal glucose; E03.9 Hypothyroidism, unspecified

== ENCOUNTER 2021-02-04 17:01 | Emergency (ER) | payer MEDICARE ==
[~2021-02-04] VITALS: Ht 162.6 cm; Wt 92.3 kg
[~2021-02-04 17:01] MED LIST changes: +CARB-89 PO; -SINE25TA5 PO
--- NOTE | 2021-02-04 18:27 | REP ---
INDICATION: R/O DVT COMPARISON: 01/16/2017. TECHNIQUE: Real time compression and duplex Doppler interrogation of the left lower extremity deep venous system is performed, including the right common femoral vein.Compression of the left peroneal and posterior tibial veins is performed. FINDINGS: The left common femoral, superficial femoral and popliteal veins are fully compressible with transducer pressure and demonstrate normal spontaneous and phasic flow, without evidence of deep venous thrombosis.The right common femoral vein demonstrates no thrombus.The left calf veins could not be visualized due to soft tissue edema. IMPRESSION: No evidence of deep venous thrombosis of the left lower extremity femoral popliteal venous system. <Electronically signed by Rafita Decker > 02/04/21 [id number]
--- NOTE | 2021-02-04 18:48 | REP ---
INDICATION: bruising and swelling LLE, on NICOLA dean COMPARISON: 11/01/2017. TECHNIQUE: AP and lateral left lower leg. FINDINGS: There is no evidence of acute fracture, dislocation, or intrinsic bone disease.There is a total left knee prosthesis. There is inferior calcaneal spurring. IMPRESSION: No fracture or dislocation. <Electronically signed by Rafita Decker > 02/04/21 [id number]
[2021-02-04 19:19] VITALS: BP 132/61
== END 2021-02-04 19:25 | disposition home or self-care (01) ==
LOC: M ED 17:01
DX: M79.81 Nontraumatic hematoma of soft tissue (principal); I12.9 Hypertensive chronic kidney disease with stage 1 through stage 4 chronic kidney disease, or unspecified chronic kidney disease; I50.9 Heart failure, unspecified; N18.30 Chronic kidney disease, stage 3 unspecified; E78.5 Hyperlipidemia, unspecified; J44.9 Chronic obstructive pulmonary disease, unspecified; Z87.01 Personal history of pneumonia (recurrent); E03.9 Hypothyroidism, unspecified; Z79.01 Long term (current) use of anticoagulants; Z79.899 Other long term (current) drug therapy
CPT/HCPCS: 73590; 93971; 99283; G0463

== ENCOUNTER 2021-03-31 12:36 | Inpatient (IN) | payer MEDICARE ==
[~2021-03-31] VITALS: Ht 167.6 cm; Wt 104.5 kg
[~2021-03-31 12:36] MED LIST changes: -KLOR10TA76 PO; -NYST10CR EXT; +NYST10CR TOP; +POTA-136 PO
--- OUTSIDE RECORDS SUMMARY | 2021-03-31 12:45 | CCD ---
Author Author [facility] Organization [facility] Address Unknown Phone Unavailable Care Team Providers Care At Risk Paraprofessional Name Role Phone Adela Riojas Unavailable PROBLEMS Type Condition ICD9-CM Code [id number] Code Onset Dates Condition S tatus W/U Status Risk SNOMED Code Notes Problem Obstructive sleep apnea (adult) (pediatric) G47.33 Active confirmed 81712766 Problem Primary generalized (osteo)arthritis M15.0 Act allison confirmed 225969635 Problem Parkinson's disease G20 Active confirmed 31395834 Problem CKD (chronic kidney disease) stage 3, GFR 30-59 ml/min N18.3 Active confirmed 822283995 Problem Chronic obstructive pulmonary disease, unspecified J44.9 Active confirmed 22186823 Problem Syncope due to orthostatic hypotension I95.1 A ctive confirmed 774253116 Problem Abnormal EEG R94.01 Active confirmed 0863375 09 Problem Chronic anticoagulation Z79.01 Active confirmed 673576517 Problem History of PSVT (paroxysmal supraventricular tachycardia) Z86.79 Active confirmed 612913782740792 Problem Urinary incontinence, unspecified type R32 A ctive confirmed 525090441 Problem Mixed hyperlipidemia E78.2 Active confirmed 158138264 Problem Hypothyroidism, unspecified E03.9 Active confirmed 61548867 Problem Post laminectomy syndrome M96.1 Active confirmed 45282114 Problem Weakness R53.1 Active confirmed 85551047 Problem Sacroiliitis, not elsewhere classified M46.1 A ctive confirmed 06086810 Problem Decreased mobility and endurance Z74.09 Active conf irmed 4308194 Problem Varicose veins of lower extremities with other complic ations I83.893 Active confirmed 56859729 Problem Dizziness R42 Active confirmed 851248235 Problem Personal history of venous thrombosis and embolism Z86.718 Active confirmed 528166092 Problem Candidiasis of breast B37.89 Active confirmed 42114850 Problem Bilateral edema of lower extremity R60.0 Activ e confirmed 369235631 Problem Candidiasis of anus B37.89 Active confirmed 21569993 Problem Allergic rhinitis, cause unspecified J30.9 Act allison confirmed 85437027 Problem Unsteady gait R26.81 Active confirmed 280006 08 Problem Vitamin D deficiency E55.9 Active confirmed 06673977 Problem Other pulmonary embolism wit hout acute cor pulmonale, unspecified chronicity I26.99 Active confirmed 60491640 Problem Essential hypertension I10 Active confirmed 76941508 Problem History of pulmonary embolism Z86.711 Active confir med 872064197 Problem Frequent falls R29.6 Active confirmed 53769 2002 Problem Peripheral polyneuropathy G62.9 Active confirmed 248474513 Problem Depressed mood F32.9 Active confirmed 89957 9004 Problem Low back pain M54.5 Active confirmed 668707 007 Problem Candidiasis, intertriginous B37.2 Active confirmed 251503166 Problem Hyperlipidemia, unspecified E78.5 Active confirmed 06681459 Problem Spinal stenosis, site unspecified M48.00 Active confirmed 54869066 Problem Paroxysmal atrial fibrillation I48.0 Active confir med 155196150 Problem Polyneuropathy in diseases classified elsewhere G6 3 Active confirmed 059636717 Problem Parkinson''s disease G20 Active confirmed 525377006010856 Problem 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 Active confirmed 513851048 ALLERGIES Allergen (clinical drug ingredient) Drug/Non Drug Allergy do cumented on EMR Reaction Allergy Type Onset Date Status Pravastatin weakness and leg pain Drug Allergy Active ENCOUNTERS from 1935 to 2021-01-07 Encounter Location Date Provider Diagnosis [place] [id number] [facility] [phone] [place] [address] Dec, Adela Riojas IMMUNIZATIONS Vaccine Route Administration Date Status Influenza 18 yrs & older Flublok IM Intramuscular Mar 02, 2018 Administered Influenza 18 yrs & older Flublok IM Intramuscular Mar 20, 2019 Administered Influenza 18 yrs & older Flublok IM Intramuscular May 21, 2020 Administered COVID-19 dose #2 given elsewhere Unspecified Unknown Dec Administered Influenza (High Dose 65 & up) IM Intramuscular Mar 31, 2015 A dministered Influenza (High Dose 65 & up) IM Intramuscular Mar 11, 2016 A dministered Influenza (High Dose 65 & up) IM Intramuscular Mar 30, 2017 A dministered Influenza 6mo & up Fluzone IM Intramuscular Apr 27, 2010 Admi nistered TDAP IM Intramuscular August 25, 2015 Administered COVID-19 dose #1 given elsewhere Unspecified Unknown Dec Administered Zoster 0.65mL Zostavax Unknown October 24, 2014 Administe red Pneumococcal Adult 0.5mL Pneumovax 23 Unknown May 03 Administered Pneumococcal 0.5mL Prevnar 13 IM Intramuscular October 22, 2014 A dministered Influenza 6mo & up Fluzone IM Intramuscular Apr 18, 2013 Admi nistered Influenza 6mo & up Fluzone IM Intramuscular Apr 18, 2012 Admi nistered Influenza 6mo & up Fluzone IM Intramuscular Apr 19, 2011 Admi nistered SOCIAL HISTORY Tobacco Use: Social History Observation Description Date Details (start date - stop date) Never Smoker Sex Assigned At : Social History Observation Description Sex Assigned At Unknown Education: Question Answer Notes Level of Education: Grade School Audit Question Answer Notes Total Score: 0 Interpretation: Alcohol Education Language: Question Answer Notes Languages spoken: Lebanese Roman Catholic: Question Answer Notes Roman Catholic 08 [employer] Sexual Hx: Question Answer Notes Had sex in the last 12 months (vaginal, oral, or anal)? No Drug and Alcohol Question Answer Notes Total Score: 0 Interpretation: No problems reported BMI Care Goal Follow-Up Question Answer Notes Above Normal BMI Follow-Up Giving encouragement to exercise Tobacco Use: Question Answer Notes Are you a: never smoker REASON FOR REFERRAL No Information VITAL SIGNS No information MEDICATIONS Medication SIG (Take, Route, Frequency, Duration) Notes Start Da te End Date Status Vitamin D3 25 MCG (1000 UT) 1 capsule Orally Once a day for 30 d ay(s) May, Not-Taking Nystatin 465664 UNIT/GM 1 application to affected ar eas of groin and rectum Externally Twice a day as needed for 90 day(s) Active Vitamin E 400 UNIT 1 tablet Orally daily for 90 day(s) Not-Taking Levothyroxine Sodium 112 MCG 1 tablet on an empty stom ach in the morning Orally Once a day Active Potassium Chloride ER 10 MEQ 2 tablets with food Oral ly Twice a day for 90 day(s) Active Bisoprolol Fumarate 5 MG TAKE 1/2 TABLET BY MOUTH EV HAYLEY EVENING Orally Once a day Active Lasix 40 MG 1 tablet Orally twice daily for 90 day(s) Active Tylenol 325 MG 1 tablet as needed Orally ev hayley 4 hours as needed for pain for 90 day(s) Active Calmoseptine 0.44-20.625 % as directed Externally to p erineum twice daily as needed Sep, Active Fluconazole 150 MG 1 tablet Orally every 72hrs x 3 then weekly x 12 for 90 day(s) Dec, Active Briefs Overnight Large - as directed DX: R32 four to 6 times fred ly as needed Active Nystatin 191596 UNIT/GM 1 application to affected ar eas of groin, anus and under breasts Externally Twice a day for 30 day(s) Nov, Active Carbidopa-Levodopa 25-100 MG 1 tablet Orally four times daily for 90 days Active Vitamin C 500 mg 1 tablet Orally daily for 90 day(s) Not-Taking Lidoderm 5 % 1 patch to intact skin remov e after 12 hours Externally to low back Once a day as needed for 90 day(s) Active Pramipexole Dihydrochloride 1.5 MG 1 tablet Orally twice daily Active Eliquis 5 MG 1 tab Oral twice daily for 90 day(s) Active PROCEDURES No Information RESULTS No Results REASON FOR VISIT PA nystatin 708167jzmr/gr cream, BID MEDICAL (GENERAL) HISTORY Type Description Date Medical History vertigo Medical History mixed hyperlipidemia Medical History Essential Hypertension- [facility]: Holter 09/28, Echo 10/28 LVH, Nuc. Stress 11/28 mild ischemia Ef 62%, Cath 04/30 minimal plaquing LAD Medical History COPD - Normal Spirometry FEV1 = 2.21 20 11 Medical History Hypothyroidism Medical History parkinsons disease- Dr Batres Medical History osteoarthritis Medical History degenerative disc disease Medical History lumbar stenosis Medical History lumbar spondylolisthesis Medical History EEG 08/01 - right temporal fo jose a cortical dysfunction with irritability (Neurology) Medical History Monoclonal Gammopathy of uncertain signi ficance - Dr. Vasquez Medical History KACIE - intolerant to CPAP Medical History SVT - [facility] Center Medical History Bilateral edema of lower extremity Medical History Bilateral PE 01/02 Surgical History colonoscopy(prior with adeno matous polyp) - [facility] (f/up 3-5yrs) 04/22, 06/25, 04/28, 08/29 Surgical History R breast biopsy - benign 04/22 Surgical History varicose veins stripping ? Surgical History L 4/ laminectomy and interspious fusion 12-29 Surgical History Left TKR - [facility] 05/2014 Hospitalization History PSVT 08/02 Hospitalization History low back pain 08/03 Hospitalization History syncope/orthostasis 08/04 Hospitalization History bilateral PE, Parkinson's, CKD 01/16- 01/19/17 Hospitalization History Near Syncope 01/31/18-02/09/18 Goals Section No Information Health Concerns No Information MEDICAL EQUIPMENT No Information MENTAL STATUS No Information FUNCTIONAL STATUS No Information ASSESSMENTS No Information PLAN OF TREATMENT Medication Medication Name Sig Start Date Stop Date Potassium Chloride ER 10 MEQ 2 tablets with food Oral ly Twice a day for 90 day(s) Lasix 40 MG 1 tablet Orally twice daily for 90 day(s) Fluconazole 150 MG 1 tablet Orally every 72hrs x 3 then weekly x 12 for 90 day(s) Dec, Briefs Overnight Large - as directed DX: R32 four to 6 times fred ly as needed Eliquis 5 MG 1 tab Oral twice daily for 90 day(s) Nystatin 086306 UNIT/GM 1 application to affected ar eas of groin, anus and under breasts Externally Twice a day for 30 day(s) Nov, Next Appt Details Provider Name:Adela Riojas, 2021-03-30 09:1 5:00 AM, [address] [facility], , [place], [address], Insurance Providers Payer Name Payer Address Payer Phone Insured Name Patient Relati onship to Insured Coverage Start Date Coverage End Date [facility] [address] [address] [facility] [id number] ELLEN CURIEL November
--- OUTSIDE RECORDS SUMMARY | 2021-03-31 12:45 | CCD ---
Author Author [facility] Organization [facility] Address Unknown Phone Unavailable Care Team Providers Care Air Brake Worker Name Role Phone Kocan, J Wanda GIS ANALYST DEVELOPER Unavailable Unavailable Kocan, J Wanda GIS ANALYST DEVELOPER Unavailable Unavailable Kocan, J Wanda GIS ANALYST DEVELOPER Unavailable Unavailable Kocan, J Wanda GIS ANALYST DEVELOPER Unavailable Unavailable Kocan, J Wanda GIS ANALYST DEVELOPER Unavailable Unavailable Kocan, J Wanda GIS ANALYST DEVELOPER Unavailable Unavailable Kocan, J Wanda GIS ANALYST DEVELOPER Unavailable Unavailable Kocan, J Wanda GIS ANALYST DEVELOPER Unavailable Unavailable Kocan, J Wanda GIS ANALYST DEVELOPER Unavailable Unavailable Kocan, J Wanda GIS ANALYST DEVELOPER Unavailable Unavailable Kocan, J Wanda GIS ANALYST DEVELOPER Unavailable Unavailable Kocan, J Wanda GIS ANALYST DEVELOPER Unavailable Unavailable Kocan, J Wanda GIS ANALYST DEVELOPER Unavailable Unavailable GALO BOSS MD Unavailable Unavailable GALO BOSS MD Unavailable Unavailable GALO BOSS MD Unavailable Unavailable GALO BOSS MD Unavailable Unavailable GALO BOSS MD Unavailable Unavailable GALO BOSS MD Unavailable Unavailable GALO BOSS MD Unavailable Unavailable GALO BOSS MD Unavailable Unavailable GALO BOSS MD Unavailable Unavailable GALO BOSS MD Unavailable Unavailable GALO BOSS MD Unavailable Unavailable GALO BOSS MD Unavailable Unavailable GALO BOSS MD Unavailable Unavailable GALO BOSS MD Unavailable Unavailable KARYN, GALO BETH Unavailable Unavailable KARYN, GALO BETH Unavailable Unavailable KARYN, GALO BETH Unavailable Unavailable KARYN, GALO BETH Unavailable Unavailable KARYN, GALO BETH Unavailable Unavailable KARYN, GALO BETH Unavailable Unavailable KARYN, GALO BETH Unavailable Unavailable KARYN, GALO BETH Unavailable Unavailable KARYN, GALO BETH Unavailable Unavailable KARYN, GALO BETH Unavailable Unavailable KARYN, GALO BETH Unavailable Unavailable KARYN, GALO BETH Unavailable Unavailable KARYN, GALO BETH Unavailable Unavailable KARYN, GALO BETH Unavailable Unavailable KARYN, GALO BETH Unavailable Unavailable KARYN, GALO BETH Unavailable Unavailable KARYN, GALO BETH Unavailable Unavailable KARYN, GALO BETH Unavailable Unavailable KARYN, GALO BETH Unavailable Unavailable KARYN, GALO BETH Unavailable Unavailable KARYN, GALO BETH Unavailable Unavailable KARYN, GALO BETH Unavailable Unavailable KARYN, GALO BETH Unavailable Unavailable KARYN, GALO BETH Unavailable Unavailable KARYN, GALO BETH Unavailable Unavailable KARYN, GALO BETH Unavailable Unavailable KARYN, GALO BETH Unavailable Unavailable KARYN, GALO BETH Unavailable Unavailable KARYN, GALO BETH Unavailable Unavailable KARYN, GALO BETH Unavailable Unavailable KARYN, GALO BETH Unavailable Unavailable KARYN, GALO BETH Unavailable Unavailable KARYN, GALO BETH Unavailable Unavailable KARYN, GALO BETH Unavailable Unavailable KARYN, GALO BETH Unavailable Unavailable KARYN, GALO BETH Unavailable Unavailable KARYN, GALO BETH Unavailable Unavailable KARYN, GALO BETH Unavailable Unavailable KARYN, GALO BETH Unavailable Unavailable KARYN, GALO BETH Unavailable Unavailable KARYN, GALO BETH Unavailable Unavailable Trickey, J Chanda PA Unavailable Unavailable Trickey, J Chanda PA Unavailable Unavailable Trickey, J Chanda PA Unavailable Unavailable Trickey, J Chanda PA Unavailable Unavailable Trickey, J Chanda PA Unavailable Unavailable Trickey, J Chanda PA Unavailable Unavailable Trickey, J Chanda PA Unavailable Unavailable Trickey, J Chanda PA Unavailable Unavailable Trickey, J Chanda PA Unavailable Unavailable Trickey, J Chanda PA Unavailable Unavailable Trickey, J Chanda PA Unavailable Unavailable Trickey, J Chanda PA Unavailable Unavailable Trickey, J Chanda PA Unavailable Unavailable Trickey, J Chanda PA Unavailable Unavailable Trickey, J Chanda PA Unavailable Unavailable Trickey, J Chanda PA Unavailable Unavailable Trickey, J Chanda PA Unavailable Unavailable Trickey, J Chanda PA Unavailable Unavailable Trickey, J Chanda PA Unavailable Unavailable Trickey, J Chanda PA Unavailable Unavailable Trickey, J Chanda PA Unavailable Unavailable Trickey, J Chanda PA Unavailable Unavailable Trickey, J Chanda PA Unavailable Unavailable Trickey, J Chanda PA Unavailable Unavailable Trickey, J Chanda PA Unavailable Unavailable Trickey, J Chanda PA Unavailable Unavailable Trickey, J Chanda PA Unavailable Unavailable Trickey, J Chanda PA Unavailable Unavailable Trickey, J Chanda PA Unavailable Unavailable Trickey, J Chanda PA Unavailable Unavailable Trickey, J Chanda PA Unavailable Unavailable Trickey, J Chanda PA Unavailable Unavailable Trickey, J Chanda PA Unavailable Unavailable Trickey, J Chanda PA Unavailable Unavailable Trickey, J Chanda PA Unavailable Unavailable Trickey, J Chanda PA Unavailable Unavailable Trickey, J Chanda PA Unavailable Unavailable Trickey, J Chanda PA Unavailable Unavailable Trickey, J Chanda PA Unavailable Unavailable Trickey, J Chanda PA Unavailable Unavailable Trickey, J Chanda PA Unavailable Unavailable Trickey, J Chanda PA Unavailable Unavailable Trickey, J Chanda PA Unavailable Unavailable Trickey, J Chanda PA Unavailable Unavailable Trickey, J Chanda PA Unavailable Unavailable Trickey, J Chanda PA Unavailable Unavailable Trickey, J Chanda PA Unavailable Unavailable Trickey, J Chanda PA Unavailable Unavailable Trickey, J Chanda PA Unavailable Unavailable MARIE, J MILAN DPM PC Unavailable Unavailable MARIE, J MILAN [facility] Unavailable Unavailable MARIE, J [facility] Unavailable Unavailable MARIE, J [facility] Unavailable Unavailable MARIE, J [facility] Unavailable Unavailable MARIE, J [facility] Unavailable Unavailable MARIE, J [facility] Unavailable Unavailable MARIE, J [facility] Unavailable Unavailable MARIE, J [facility] Unavailable Unavailable MARIE, J [facility] Unavailable Unavailable MARIE, J [facility] Unavailable Unavailable MARIE, J [facility] Unavailable Unavailable MARIE, J MILAN [facility] Unavailable Unavailable MARIE, J [facility] Unavailable Unavailable MARIE, J [facility] Unavailable Unavailable MARIE, J [facility] Unavailable Unavailable MARIE, J [facility] Unavailable Unavailable MARIE, J [facility] Unavailable Unavailable MARIE, J [facility] Unavailable Unavailable MARIE, J [facility] Unavailable Unavailable MARIE, J [facility] Unavailable Unavailable MARIE, J [facility] Unavailable Unavailable MARIE, J [facility] Unavailable Unavailable MARIE, J [facility] Unavailable Unavailable MARIE, J [facility] Unavailable Unavailable [facility]IE, J [facility] Unavailable Unavailable MARIE, J [facility] Unavailable Unavailable Re-disclosure Warning The records that you are about to access may contain information from federally-assisted alcohol or drug abuse programs. If such information is present, then the following federally mandated warning applies: This information has been disclosed to you from records protected by federal confidentiality rules (42 CFR part 2). The federal rules prohibit you from making any further disclosure of this information unless further disclosure is expressly permitted by the written consent of the person to whom it pertains or as otherwise permitted by 42 CFR part 2. A general authorization for the release of medical or other information is NOT sufficient for this purpose. The Federal rules restrict any use of the information to criminally investigate or prosecute any alcohol or drug abuse patient.The records that you are about to access may contain highly sensitive health information, the redisclosure of which is protected by Article 27-F of the [facility] Public Health law. If you continue you may have access to information: Regarding HIV / AIDS; Provided by facilities licensed or operated by the [facility] Office of Mental Health; or Provided by the [facility] Office for People With Developmental Disabilities. If such information is present, then the following [facility] mandated warning applies: This information has been disclosed to you from confidential records which are protected by state law. State law prohibits you from making any further disclosure of this information without the specific written consent of the person to whom it pertains, or as otherwise permitted by law. Any unauthorized further disclosure in violation of state law may result in a fine or long-term sentence or both. A general authorization for the release of medical or other information is NOT sufficient authorization for further disc losure. Encounters Encounter Providers Location Date Indications Data Source(s ) Unknown [address] [facility] [address] 02/04/2021 12:00:00 AM EDT eCW1 ([facility]) Outpatient [address] [facility] [place] [address] 01/07/2021 12:00:00 AM EDT eCW1 ([facility]) Unknown [address] [facility] [place] [address] 01/07/2021 12:00:00 AM EDT eCW1 ([facility]) Unknown [address] [facility] [address] 10/16/2020 12:00:00 AM EDT eCW1 ([facility]) Outpatient Attender: Wanda CONLEY-SJPJessicaGLADYS 2020 12:53:59 PM EDT - 09/30/2020 01:54:32 PM EDT [facility] Outpatient [address] [facility] [address] 09/24/2020 12:00:00 AM EDT eCW1 ([facility]) Unknown [address] [facility] [address] 09/16/2020 12:00:00 AM EDT eCW1 ([facility]) Unknown [address] [facility] [address] 09/01/2020 12:00:00 AM EDT eCW1 ([facility]) Unknown [address] [facility] [address] 07/20/2020 12:00:00 AM EST eCW1 ([facility]) Outpatient [address] [facility] [address] 05/21/2020 12:00:00 AM EST eCW1 ([facility]) Unknown [address] [facility] [address] 04/22/2020 12:00:00 AM EST eCW1 ([facility]) Outpatient Attender: Chanda Atkins [facility] office [facility] 04/14/2020 08:00:00 AM EDT MEDENT ([facility] hugo, ANNETTE) Outpatient Attender: Wanda Banks RNPAttender: GALO PINAGLADYS-SJPJessicaGLADYS 04/01/2020 12:00:00 AM EDT - 04/01/2020 02:49:36 PM EDT [facility] Outpatient Attender: MILAN BRYANT 02/27/2020 01:30:00 PM EDT - 02/27/2020 01:30:00 PM EDT [facility] Immunizations Vaccine Date Status Description Data Source(s) COVID-19 dose #1 given elsewhere Unspecified 01/07/2021 11:0 5:00 AM EDT completed eCW1 ([facility]) COVID-19 dose #2 given elsewhere Unspecified 01/07/2021 11:0 5:00 AM EDT completed eCW1 ([facility]) COVID-19 dose #2 given elsewhere Unspecified 01/07/2021 11:0 5:00 AM EDT completed eCW1 ([facility]) COVID-19 dose #1 given elsewhere Unspecified 01/07/2021 11:0 5:00 AM EDT completed eCW1 ([facility]) COVID-19 dose #1 given elsewhere Unspecified 01/07/2021 11:0 5:00 AM EDT completed eCW1 ([facility]) COVID-19 dose #2 given elsewhere Unspecified 01/07/2021 11:0 5:00 AM EDT completed eCW1 ([facility]) COVID-19 VACCINE Moderna 11/03/2020 12:00:00 AM EDT completed [facility] Vaccine Series Complete: YESThis Data wa s Submitted to [facility] Via [employer]. COVID-19 VACCINE Moderna 10/06/2020 12:00:00 AM EDT completed [facility] Vaccine Series Complete: NOThis Data was Submitted to [facility] Via [employer]. influenza, recombinant, quadrIvalent,injectable, prese rvative free 05/21/2020 03:00:00 PM EST completed eCW1 ([facility]) influenza, recombinant, quadrIvalent,injectable, prese rvative free 05/21/2020 03:00:00 PM EST completed eCW1 ([facility]) influenza, recombinant, quadrIvalent,injectable, prese rvative free 05/21/2020 03:00:00 PM EST completed eCW1 ([facility]) influenza, recombinant, quadrIvalent,injectable, prese rvative free 05/21/2020 03:00:00 PM EST completed eCW1 ([facility]) influenza, recombinant, quadrIvalent,injectable, prese rvative free 05/21/2020 03:00:00 PM EST completed eCW1 ([facility]) influenza, recombinant, quadrIvalent,injectable, prese rvative free 05/21/2020 03:00:00 PM EST completed eCW1 ([facility]) influenza, recombinant, quadrIvalent,injectable, prese rvative free 05/21/2020 03:00:00 PM EST completed eCW1 ([facility]) influenza, recombinant, quadrIvalent,injectable, prese rvative free 05/21/2020 03:00:00 PM EST completed eCW1 ([facility]) influenza, recombinant, quadrIvalent,injectable, prese rvative free 05/21/2020 03:00:00 PM EST completed eCW1 ([facility]) Medications Medication Brand Name Start Date Product Form Dose Route Admi nistrative Instructions Pharmacy Instructions Status Indications Reaction Description Data Source(s) 100,000 unit/gram 01/07/2021 12:00:00 AM EDT cream 90 APPLY TOPICALLY TWICE A DAY TO AFFECTED AREAS OF GROIN, ANUS AND UNDER BREAST APPLY TOPICALLY TWICE A DAY TO AFFECTED AREAS OF GROIN, ANUS AND UNDER BREAST SOLD: 01/07/2021 [facility] Fluconazole 150 MG Oral Tablet Fluconazole 150 MG 01/07/2021 12:00: 00 AM EDT 1.0 {tablet} active Fluconazole 150 MG eCW1 ([facility]) Fluconazole 150 MG Oral Tablet Fluconazole 150 MG 01/07/2021 12:00: 00 AM EDT 1.0 {tablet} active Fluconazole 150 MG eCW1 ([facility]) Fluconazole 150 MG Oral Tablet Fluconazole 150 MG 01/07/2021 12:00: 00 AM EDT 1.0 {tablet} active Fluconazole 150 MG [facility] ([facility]) 150 mg 01/07/2021 12:00:00 AM EDT tablet 15 TAKE 1 TABLET BY MOUTH EVERY 3 DAYS FOR 3 DOSES THEN TAKE 1 TABLET ONCE WEEKLY TAKE 1 TABLET BY MOUTH EVERY 3 DAYS FOR 3 DOSES THEN TAKE 1 TABLET ONCE WEEKLY SOLD: 01/07/2021 [facility] Levothyroxine Sodium 0.112 MG Oral Table t levothyroxine (SYNTHROID, LEVOTHROID) 112 MCG tablet levothyroxine (SYNTHROID, LEVOTHROID) 112 MCG tablet 0 09/01/2020 12:00:00 AM EDT aborted [facility] Cholecalciferol 1000 UNT Oral Capsule Vitamin D3 25 MC G (1000 UT) Vitamin D3 25 MCG (1000 UT) 05/21/2020 12:00:00 AM EST 1.0 {capsule} suspended Vitamin D3 25 MCG (1000 UT) eC ([facility]) Cholecalciferol 1000 UNT Oral Capsule Vitamin D3 25 MC G (1000 UT) Vitamin D3 25 MCG (1000 UT) 05/21/2020 12:00:00 AM EST 1.0 {capsule} active Vitamin D3 25 MCG (1000 UT) eC ([facility]) Cholecalciferol 1000 UNT Oral Capsule Vitamin D3 25 MC G (1000 UT) Vitamin D3 25 MCG (1000 UT) 05/21/2020 12:00:00 AM EST 1.0 {capsule} active Vitamin D3 25 MCG (1000 UT) [facility] ([facility]) Cholecalciferol 1000 UNT Oral Capsule Vitamin D3 25 MC G (1000 UT) Vitamin D3 25 MCG (1000 UT) 05/21/2020 12:00:00 AM EST 1.0 {capsule} active Vitamin D3 25 MCG (1000 UT) [facility] ([facility]) Cholecalciferol 1000 UNT Oral Capsule Vitamin D3 25 MC G (1000 UT) Vitamin D3 25 MCG (1000 UT) 05/21/2020 12:00:00 AM EST 1.0 {capsule} suspended Vitamin D3 25 MCG (1000 UT) eC ([facility]) Cholecalciferol 1000 UNT Oral Capsule Vitamin D3 25 MC G (1000 UT) Vitamin D3 25 MCG (1000 UT) 05/21/2020 12:00:00 AM EST 1.0 {capsule} active Vitamin D3 25 MCG (1000 UT) eC ([facility]) Cholecalciferol 1000 UNT Oral Capsule Vitamin D3 25 MC G (1000 UT) Vitamin D3 25 MCG (1000 UT) 05/21/2020 12:00:00 AM EST 1.0 {capsule} suspended Vitamin D3 25 MCG (1000 UT) eC ([facility]) Cholecalciferol 1000 UNT Oral Capsule Vitamin D3 25 MC G (1000 UT) Vitamin D3 25 MCG (1000 UT) 05/21/2020 12:00:00 AM EST 1.0 {capsule} suspended Vitamin D3 25 MCG (1000 UT) eCW1 ([facility]) Cholecalciferol 1000 UNT Oral Capsule Vitamin D3 25 MC G (1000 UT) Vitamin D3 25 MCG (1000 UT) 05/21/2020 12:00:00 AM EST 1.0 {capsule} suspended Vitamin D3 25 MCG (1000 UT) eCW1 ([facility]) Insurance Providers Payer name Policy type / Coverage type Policy ID Covered green party ID Covered green party's relationship to clark Policy Clark Plan Information AMER PROG TODAYS OPTIONS G [id number] Self [id number] [facility] MEDICARE [id number] Tammy [id number] [facility] [id number] xxxxxxxx [id number] SELF PAY UNAVAILABLE UNAVAILA BLE SELF PAY UNAVAILABLE S UNAVAILA BLE MEDICARE [id number] SP [id number] ANSI-Medicare Part B [id number] [facility] [id number] [facility] [id number] [facility] [id number] [facility] [id number] [facility] [id number] ANSI-Medicare Part B [id number] ANSI-Medicare Part B [id number] ANSI-Medicare Part B [id number] ANSI-Medicare Part B [id number] ANSI-Medicare Part B [id number] ANSI-Medicare Part B [id number] ANSI-Medicare Part B [id number] ANSI-Medicare Part B [id number] ANSI-Medicare Part B [id number] ANSI-Medicare Part B [id number] ANSI-Medicare Part B [id number] ANSI-Medicare Part B [id number] ANSI-Medicare Part B [id number] ANSI-Medicare Part B [id number] ANSI-Medicare Part B [id number] ANSI-Medicare Part B [id number] ANSI-Medicare Part B [id number] ANSI-Medicare Part B [id number] ANSI-Medicare Part B [id number] ANSI-Medicare Part B [id number] ANSI-Medicare Part B [id number] ANSI-Medicare Part B [id number] ANSI-Medicare Part B [id number] ANSI-Medicare Part B [id number] ANSI-Medicare Part B [id number] ANSI-Medicare Part B [id number] ANSI-Medicare Part B [id number] TODAYS OPTIONS [id number] SP [id number] ANSI-Medicare Part B [id number] ANSI-Medicare Part B [id number] ANSI-Medicare Part B [id number] ANSI-Medicare Part B [id number] ANSI-Medicare Part B [id number] ANSI-Medicare Part B [id number] Medicare Part B Medicare Primary [id number] Self [id number] ANSI-Medicare Part B [id number] ANSI-Medicare Part B [id number] ANSI-Medicare Part B [id number] ANSI-Medicare Part B [id number] ANSI-Medicare Part B [id number] ANSI-Medicare Part B [id number] ANSI-Medicare Part B [id number] Today's [employer] [id number] Self [id number] Medicare Solutions Commercial [id number] Self [id number] TODAYS OPTIONS/COMORAN O [id number] S [id number] Today's [employer] [id number] Self [id number] MEDICARE COMPLETE [id number] SP [id number] Medicare [employer] [id number] Self [id number] MEDICARE COMPLETE [id number] SP [id number] MEDICARE COMPLETE [id number] SP [id number] Medicare Solutions Commercial [id number] Self [id number] MEDICARE COMPLETE [id number] SP [id number] MEDICARE [id number] SP [id number] A [employer] [id number] Self MEDICARE RIGO O [id number] S [id number] [facility] MCARE COMPLETE O [id number] S [id number] COMORAN PROGRESSIVE O [id number] S [id number] COMORAN PROGRESSIVE O [id number] S [id number] [facility] MEDICARE COMPLET O [id number] S [id number] MEDICARE COMPLETE-[facility] P [id number] S [id number] UNAVA[employer] [id number] SP [id number] MEDICARE PART A [facility] [id number] 18 [id number] [employer] [id number] S [id number] Problems, Conditions, and Diagnoses Code Display Name Description Problem Type Effective Dates Data Source(s) R55 Syncope and collapse Syncope and collapse Diagnosis 09/30/2020 12:53:59 PM EDT [facility] Z86.711 Personal history of pulmonary embolism P ersonal history of pulmonary embolism Diagnosis 09/30/2020 12:53:59 PM EDT [facility] G20 Parkinson's disease Parkinson's disease Diagnosis 0 09/30/2020 12:53:59 PM EDT [facility] Z68.38 Body mass index (BMI) 38.0-38.9, adult B dmiitri mass index (BMI) 38.0-38.9, adult Diagnosis 09/30/2020 12:53:59 PM EDT [facility] E66.09 Other obesity due to excess calories Oth er obesity due to excess calories Diagnosis 09/30/2020 12:53:59 PM EDT [facility] E03.9 Hypothyroidism, unspecified Hypothyroidism, unspecifie d Diagnosis 09/30/2020 12:53:59 PM EDT [facility] R60.9 Edema, unspecified Edema, unspecified Diagnosis 12:53:59 PM EDT [facility] I10 Essential (primary) hypertension Essential (primary) h ypertension Diagnosis 09/30/2020 12:53:59 PM EDT [facility] 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 premature depolarization Diagnosis 09/30/2020 12:53:59 PM EDT [facility] E78.5 Hyperlipidemia, unspecified Hyperlipidemia, unspecifie d Diagnosis 09/30/2020 12:53:59 PM EDT [facility] M19.90 Unspecified osteoarthritis, unspecified site Unspecified osteoarthritis, unspecified Diagnosis 04/01/2020 01:03:07 PM EDT [facility] M2040 Other hammer toe(s) (acquired), unspecif ied foot Other hammer toe(s) (acquired), unspecified foot Diagnosis 02/27/2020 01:30:00 PM EDT [facility] M2010 Hallux valgus (acquired), unspecified fo ot Hallux valgus (acquired), unspecified foot Diagnosis 02/27/2020 01:30:00 PM EDT [facility] G20 Parkinson's disease Parkinson's disease Diagnosis 0 02/27/2020 01:30:00 PM EDT [facility] [id number] Pain in left foot Pain in left foot Diagnosis 02/27/2020 01:30:00 PM EDT [facility] G07993 Pain in right foot Pain in right foot Diagnosis 03/2020 01:30:00 PM EDT [facility] L84 Corns and callosities Corns and callosities Diagnosis 02/27/2020 01:30:00 PM EDT [facility] B351 Tinea unguium Tinea unguium Diagnosis 02/27/2020 01:30:00 PM EDT [facility] [id number] Unspecified atherosclerosis of [place] arteries of extremities, bilateral legs Unspecified atherosclerosis of [place] ar teries of extremities, bilateral legs Diagnosis 02/27/2020 01:30:00 PM EDT [facility] B37.2 [id number] Candidiasis, intertriginous Problem 01/08/20 21 12:00:00 AM EDT eCW1 ([facility]) Surgeries/Procedures Procedure Description Date Indications Data Source(s) Immunization: Flublok Quadrivalent (18 years & older) 0.5mL IM (Influenza) 05/21/2020 12:00:00 AM EST eCW1 ([facility]) Results ID Date Data Source MAGNESIUM LEVEL 09/24/2020 12:00:00 AM EDT eCW1 [facility] Name Value Range Interpretation Code Description Data Jessica rce(s) Supporting Document(s) 2.3 1.8-2.4 MAGNESIUM LEVEL eCW1 ([facility]) ID Date Data Source VITAMIN D 25-HYDROXY 09/24/2020 12:00:00 AM EDT eCW1 ([facility]) Name Value Range Interpretation Code Description Data Jessica rce(s) Supporting Document(s) 21.1 30.0-100.0 TOTAL 25(OH) VITAMIN D eC W1 ([facility]) ID Date Data Source [id number] 09/24/2020 12:00:00 AM EDT eCW1 ([facility] Name Value Range Interpretation Code Description Data Jessica rce(s) Supporting Document(s) Hemoglobin A1c/Hemoglobin.total in Blood 6.3 HEMOGLOBIN A1c eCW1 ([facility]) ID Date Data Source FREE T4 & TSH PANEL 09/24/2020 12:00:00 AM EDT eCW1 ([facility]) Name Value Range Interpretation Code Description Data Jessica rce(s) Supporting Document(s) 2.970 0.358-3.740 THYROID STIMULATING HORM ONE eCW1 ([facility]) 1.22 0.76-1.46 FREE T4 eCW1 ([facility]) ID Date Data Source Comprehensive Metabolic Profile (CMP) 09/24/2020 12:00:00 AM EDT eCW1 ([facility]) Name Value Range Interpretation Code Description Data Jessica rce(s) Supporting Document(s) 110 70-100 GLUCOSE, FASTING eCW1 ([facility]) 33 7-18 BLOOD UREA NITROGEN eCW1 ([facility]) 0.90 0.55-1.30 CREATININE FOR GFR eCW1 ([facility]) > 60.0 >32 GLOMERULAR FILTRATION RATE eCW 1 ([facility]) 141 136-145 SODIUM LEVEL eCW1 ([facility]) 5.0 3.5-5.1 POTASSIUM SERUM eCW1 ([facility]) 33 21-32 CARBON DIOXIDE LEVEL eCW1 ([facility]) 105 98-107 CHLORIDE LEVEL eCW1 ([facility]) 9.4 8.8-10.2 CALCIUM LEVEL eCW1 ([facility]) 103 45-117 ALKALINE PHOSPHATASE eCW1 ([facility]) 22 12-78 ALT/SGPT eCW1 ([facility]) 14 7-37 AST/SGOT eCW1 ([facility]) 0.3 0.2-1.0 BILIRUBIN,TOTAL eCW1 ([facility]) 6.9 6.4-8.2 TOTAL PROTEIN eCW1 ([facility]) 3.5 3.2-5.2 ALBUMIN eCW1 ([facility]) 1.0 1.2-2.2 ALBUMIN/GLOBULIN RATIO eCW1 ([facility]) Procedure Social History Code Duration Value Status Description Data Source(s ) Smoking 02/04/2021 12:00:00 AM EDT Never Smoker completed Never S moker eCW1 ([facility]) Smoking 01/07/2021 12:00:00 AM EDT Never Smoker completed Never S moker eCW1 ([facility]) Smoking 01/07/2021 12:00:00 AM EDT Never Smoker completed Never S moker eCW1 ([facility]) Alcohol intake 09/30/2020 12:00:00 AM EDT Not Currently completed [facility] Smoking 09/30/2020 12:00:00 AM EDT Never smoker completed Never s moker [facility] Smoking 09/24/2020 12:00:00 AM EDT Never Smoker completed Never S moker eCW1 ([facility]) Smoking 09/24/2020 12:00:00 AM EDT Never Smoker completed Never S moker eCW1 ([facility]) Smoking 05/21/2020 12:00:00 AM EST Never Smoker completed Never S moker eCW1 ([facility]) Smoking 05/21/2020 12:00:00 AM EST Never Smoker completed Never S moker eCW1 ([facility]) Smoking 05/21/2020 12:00:00 AM EST Never Smoker completed Never S moker eCW1 ([facility]) Smoking 05/21/2020 12:00:00 AM EST Never Smoker completed Never S moker eCW1 ([facility]) Vital Signs ID Date Data Source UNK Name Value Range Interpretation Code Description Data Source(s) Body weight 203 [lb_av] 203 [lb_av] eCW1 ([facility]) Body height 63 [in_i] 63 [in_i] eCW1 [facility]) Body mass index (BMI) [Ratio] 35.96 kg/m2 35.96 kg/m2 eCW1 ([facility]) Heart rate 76 /min 76 /min eCW1 ([facility]) Respiratory rate 20 /min 20 /min eCW1 ([facility]) Body temperature 97 [degF] 97 [degF] eCW1 ([facility]) Systolic blood pressure 124 mm[Hg] 124 mm[Hg] e CW1 ([facility]) Diastolic blood pressure 70 mm[Hg] 70 mm[Hg] eCW1 ([facility]) Systolic blood pressure 118 mm[Hg] 118 mm[Hg] [facility] Diastolic blood pressure 70 mm[Hg] 70 mm[Hg] [facility] Heart rate 62 /min 62 /min [facility] Body height 160 cm 160 cm [facility] Body weight 90.719 kg 90.719 kg [facility] Body mass index (BMI) [Ratio] 35.43 kg/m2 35.43 kg/m2 [facility] Oxygen saturation in Arterial blood by Pulse oximetry 97 % 97 % [facility] Body weight 206 [lb_av] 206 [lb_av] W1 ([facility]) Body height [in_i] eCW1 ([facility]) Body mass index (BMI) [Ratio] 36.49 kg/m2 36.49 kg/m2 W1 ([facility]) Heart rate 80 /min 80 /min eCW1 ([facility]) Respiratory rate 20 /min 20 /min eCW1 ([facility]) Body temperature 97.1 [degF] 97.1 [degF] eCW1 ( [facility]) Systolic blood pressure 130 mm[Hg] 130 mm[Hg] e CW1 ([facility]) Diastolic blood pressure 84 mm[Hg] 84 mm[Hg] eCW1 ([facility]) Body weight 200 [lb_av] 200 [lb_av] W1 ([facility]) Body height 63 [in_i] 63 [in_i] eCW1 ([facility]) Body mass index (BMI) [Ratio] 35.42 kg/m2 35.42 kg/m2 eCW1 ([facility]) Heart rate 76 /min 76 /min eCW1 ([facility]) Respiratory rate 20 /min 20 /min eCW1 ([facility]) Body temperature 97.6 [degF] 97.6 [degF] eCW1 ( [facility]) Systolic blood pressure 110 mm[Hg] 110 mm[Hg] e CW1 ([facility]) Diastolic blood pressure 80 mm[Hg] 80 mm[Hg] eCW1 ([facility]) Systolic blood pressure 110 mm[Hg] 110 mm[Hg] M EDENT ([facility]) Heart rate 76 /min 76 /min MEDENT ([facility]) Respiratory rate 20 /min 20 /min MEDENT ( [facility]) Diastolic blood pressure 70 mm[Hg] 70 mm[Hg] MEDENT ([facility] ) Patient Treatment Plan of Care Planned Activity Planned Date Details Description Data Source (s) Fluconazole 150 MG Oral Tablet 01/07/2021 12:00:00 AM EDT eCW1 ([facility]) Fluconazole 150 MG Oral Tablet 01/07/2021 12:00:00 AM EDT eCW1 ([facility]) Levothyroxine Sodium 0.112 MG Oral Tablet 09/01/2020 12:00:00 AM ED T [facility] Cholecalciferol 1000 UNT Oral Capsule 05/21/2020 12:00:00 AM EST eCW1 ([facility]) Cholecalciferol 1000 UNT Oral Capsule 05/21/2020 12:00:00 AM EST eCW1 ([facility]) Cholecalciferol 1000 UNT Oral Capsule 05/21/2020 12:00:00 AM EST eCW1 ([facility]) Cholecalciferol 1000 UNT Oral Capsule 05/21/2020 12:00:00 AM EST eCW1 ([facility])
--- OUTSIDE RECORDS SUMMARY | 2021-03-31 12:45 | CCD ---
Author Author [facility] Organization [facility] Address Unknown Phone Unavailable Care Team Providers Care Clip [employer] Wrapper Name Role Phone Adela Riojas Unavailable PROBLEMS Type Condition ICD9-CM Code RMC86-PC Code Onset Dates Condition S tatus W/U Status Risk SNOMED Code Notes Problem Obstructive sleep apnea (adult) (pediatric) G47.33 Active confirmed 05266251 Problem Primary generalized (osteo)arthritis M15.0 Act allison confirmed 512457416 Problem Parkinson's disease G20 Active confirmed 63749552 Problem CKD (chronic kidney disease) stage 3, GFR 30-59 ml/min N18.3 Active confirmed 623905679 Problem Chronic obstructive pulmonary disease, unspecified J44.9 Active confirmed 71872397 Problem Syncope due to orthostatic hypotension I95.1 A ctive confirmed 972070526 Problem Abnormal EEG R94.01 Active confirmed 5444692 09 Problem Chronic anticoagulation Z79.01 Active confirmed 455209706 Problem History of PSVT (paroxysmal supraventricular tachycardia) Z86.79 Active confirmed 410702043012363 Problem Urinary incontinence, unspecified type R32 A ctive confirmed 471103469 Problem Mixed hyperlipidemia E78.2 Active confirmed 714356413 Problem Hypothyroidism, unspecified E03.9 Active confirmed 98875953 Problem Post laminectomy syndrome M96.1 Active confirmed 87956133 Problem Weakness R53.1 Active confirmed 68354260 Problem Sacroiliitis, not elsewhere classified M46.1 A ctive confirmed 45493010 Problem Decreased mobility and endurance Z74.09 Active conf irmed 9605064 Problem Varicose veins of lower extremities with other complic ations I83.893 Active confirmed 94085190 Problem Dizziness R42 Active confirmed 034627185 Problem Personal history of venous thrombosis and embolism Z86.718 Active confirmed 775198139 Problem Candidiasis of breast B37.89 Active confirmed 42284004 Problem Bilateral edema of lower extremity R60.0 Activ e confirmed 555478105 Problem Candidiasis of anus B37.89 Active confirmed 22209399 Problem Allergic rhinitis, cause unspecified J30.9 Act allison confirmed 09151681 Problem Unsteady gait R26.81 Active confirmed 639082 08 Problem Vitamin D deficiency E55.9 Active confirmed 52799842 Problem Other pulmonary embolism wit hout acute cor pulmonale, unspecified chronicity I26.99 Active confirmed 96484712 Problem Essential hypertension I10 Active confirmed 94571066 Problem History of pulmonary embolism Z86.711 Active confir med 415176914 Problem Frequent falls R29.6 Active confirmed 98894 2002 Problem Peripheral polyneuropathy G62.9 Active confirmed 197149648 Problem Depressed mood F32.9 Active confirmed 56681 9004 Problem Low back pain M54.5 Active confirmed 029022 007 Problem Candidiasis, intertriginous B37.2 Active confirmed 017668846 Problem Hyperlipidemia, unspecified E78.5 Active confirmed 75439921 Problem Spinal stenosis, site unspecified M48.00 Active confirmed 49984434 Problem Paroxysmal atrial fibrillation I48.0 Active confir med 493691566 Problem Polyneuropathy in diseases classified elsewhere G6 3 Active confirmed 563622229 Problem Parkinson''s disease G20 Active confirmed 010145038416729 Problem 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 [phone] [place] [address] Jan, Adela Riojas IMMUNIZATIONS Vaccine Route Administration Date Status COVID-19 dose #1 given elsewhere Unspecified Unknown Dec Administered COVID-19 dose #2 given elsewhere Unspecified Unknown Dec Administered Influenza 18 yrs & older Flublok IM Intramuscular Mar 20, 2019 Administered Influenza 18 yrs & older Flublok IM Intramuscular May 21, 2020 Administered Influenza (High Dose 65 & up) IM Intramuscular Mar 11, 2016 A dministered Influenza (High Dose 65 & up) IM Intramuscular Mar 30, 2017 A dministered Influenza 18 yrs & older Flublok IM Intramuscular Mar 02, 2018 Administered Influenza 6mo & up Fluzone IM Intramuscular Apr 27, 2010 Admi nistered Influenza (High Dose 65 & up) IM Intramuscular Mar 31, 2015 A dministered TDAP IM Intramuscular August 25, 2015 Administered Pneumococcal 0.5mL Prevnar 13 IM Intramuscular October 22, 2014 A dministered Zoster 0.65mL Zostavax Unknown October 24, 2014 Administe red Pneumococcal Adult 0.5mL Pneumovax 23 Unknown May 03 Administered Influenza 6mo & up Fluzone IM Intramuscular [...] Education Language: Question Answer Notes Languages spoken: Zambian Confucianist: Question Answer Notes Confucianist 08 Anabaptist Sexual Hx: Question Answer Notes Had sex [...] Notes Start Da te End Date Status Tylenol 325 MG 1 tablet as needed Orally ev hayley 4 hours as needed for pain for 90 day(s) Active Eliquis 5 MG 1 tab Oral twice daily for 90 day(s) Active Lasix 40 MG 1 tablet Orally twice daily for 90 day(s) Active Potassium Chloride ER 10 MEQ 2 tablets with food Oral ly Twice a day for 90 day(s) Active Carbidopa-Levodopa 25-100 MG 1 tablet Orally four times daily for 90 days Active Nystatin 450327 UNIT/GM 1 application to affected ar eas of groin and rectum Externally Twice a day as needed for 90 day(s) Active Vitamin D3 25 MCG (1000 UT) 1 capsule Orally Once a day for 30 d ay(s) May, Not-Taking Levothyroxine Sodium 112 MCG 1 tablet on an empty stom ach in the morning Orally Once a day Active Vitamin E 400 UNIT 1 tablet Orally daily for 90 day(s) Not-Taking Calmoseptine 0.44-20.625 % as directed Externally to p erineum twice daily as needed Sep, Active Vitamin C 500 mg 1 tablet Orally daily for 90 day(s) Not-Taking Briefs Overnight Large - as directed DX: R32 four to 6 times fred ly as needed Active Fluconazole 150 MG 1 tablet Orally every 72hrs x 3 then weekly x 12 for 90 day(s) Dec, Active Pramipexole Dihydrochloride 1.5 MG 1 tablet Orally twice daily Active Bisoprolol Fumarate 5 MG TAKE 1/2 TABLET BY MOUTH EV HAYLEY EVENING Orally Once a day Active Nystatin 353308 UNIT/GM 1 application to affected ar eas of groin, anus and under breasts Externally Twice a day for 30 day(s) Nov, Active Lidoderm 5 % 1 patch to intact skin remov e after 12 hours Externally to low back Once a day as needed for 90 day(s) Active PROCEDURES No Information RESULTS No Results REASON FOR VISIT bruised left claf MEDICAL (GENERAL) HISTORY Type Description Date Medical History vertigo Medical History mixed hyperlipidemia Medical History Essential Hypertension- [facility]: Holter 09/28, Echo 10/28 LVH, Nuc. Stress [...] intolerant to CPAP Medical History SVT - [facility] Center Medical History Bilateral edema of lower extremity Medical History Bilateral PE 01/02 Surgical History colonoscopy(prior with adeno matous polyp) - [facility] (f/up 3-5yrs) 04/22, 06/25, 04/28, 08/29 Surgical History R breast biopsy - benign 04/22 Surgical History varicose veins stripping ? Surgical History L 09/21 laminectomy and interspious fusion 12-29 Surgical History [...] Information ASSESSMENTS No Information PLAN OF TREATMENT Next Appt Details Provider Name:Adela Riojas, 2021-03-30 09:1 5:00 AM, [address] [facility], , [place], [address], Insurance Providers Payer Name Payer Address Payer Phone Insured Name Patient Relati onship to Insured Coverage Start Date Coverage End Date [facility] [employer] [address] [address] [facility] [id number] [phone] ELLEN CURIEL PAT self
--- OUTSIDE RECORDS SUMMARY | 2021-03-31 12:45 | CCD ---
Author Author [facility] Organization [facility] Address Unknown Phone Unavailable Care Team Providers Care [employer] Name Role Phone Adela Riojas Unavailable PROBLEMS Type Condition ICD9-CM Code [id number] Code Onset Dates Condition S tatus W/U Status Risk SNOMED Code Notes Problem Obstructive sleep apnea (adult) (pediatric) G47.33 Active confirmed 59111528 Problem Primary generalized (osteo)arthritis M15.0 Act allison confirmed 128261874 Problem Parkinson's disease G20 Active confirmed 09331103 Problem CKD (chronic kidney disease) stage 3, GFR 30-59 ml/min N18.3 Active confirmed 257721718 Problem Chronic obstructive pulmonary disease, unspecified J44.9 Active confirmed 29552749 Problem Syncope due to orthostatic hypotension I95.1 A ctive confirmed 928632770 Problem Abnormal EEG R94.01 Active confirmed 5367930 09 Problem Chronic anticoagulation Z79.01 Active confirmed 399229792 Problem History of PSVT (paroxysmal supraventricular tachycardia) Z86.79 Active confirmed 858979885390771 Problem Urinary incontinence, unspecified type R32 A ctive confirmed 335872052 Problem Mixed hyperlipidemia E78.2 Active confirmed 186123881 Problem Hypothyroidism, unspecified E03.9 Active confirmed 66374483 Problem Post laminectomy syndrome M96.1 Active confirmed 17586583 Problem Weakness R53.1 Active confirmed 32101453 Problem Sacroiliitis, not elsewhere classified M46.1 A ctive confirmed 05167332 Problem Decreased mobility and endurance Z74.09 Active conf irmed 3299264 Problem Varicose veins of lower extremities with other complic ations I83.893 Active confirmed 66504670 Problem Dizziness R42 Active confirmed 781060508 Problem Personal history of venous thrombosis and embolism Z86.718 Active confirmed 533176213 Problem Candidiasis of breast B37.89 Active confirmed 76523506 Problem Bilateral edema of lower extremity R60.0 Activ e confirmed 486712696 Problem Candidiasis of anus B37.89 Active confirmed 59154895 Problem Allergic rhinitis, cause unspecified J30.9 Act allison confirmed 24255330 Problem Unsteady gait R26.81 Active confirmed 504691 08 Problem Vitamin D deficiency E55.9 Active confirmed 65348344 Problem Other pulmonary embolism wit hout acute cor pulmonale, unspecified chronicity I26.99 Active confirmed 94711249 Problem Essential hypertension I10 Active confirmed 28666520 Problem History of pulmonary embolism Z86.711 Active confir med 437557392 Problem Frequent falls R29.6 Active confirmed 85241 2002 Problem Peripheral polyneuropathy G62.9 Active confirmed 557194778 Problem Depressed mood F32.9 Active confirmed 37162 9004 Problem Low back pain M54.5 Active confirmed 445807 007 Problem Candidiasis, intertriginous B37.2 Active confirmed 084217851 Problem Hyperlipidemia, unspecified E78.5 Active confirmed 63624908 Problem Spinal stenosis, site unspecified M48.00 Active confirmed 03257842 Problem Paroxysmal atrial fibrillation I48.0 Active confir med 486713144 Problem Polyneuropathy in diseases classified elsewhere G6 3 Active confirmed 445616621 Problem Parkinson''s disease G20 Active confirmed 149212169475420 Problem 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 Active confirmed 310201052 ALLERGIES Allergen (clinical drug ingredient) Drug/Non Drug Allergy do cumented on EMR Reaction Allergy Type Onset Date Status Pravastatin weakness and leg pain Drug Allergy Active ENCOUNTERS from 1935 to 2021-01-08 Encounter Location Date Provider Diagnosis [address] [phone] [place] [address] Dec, Adela Riojas Candidiasis, intertriginous B37.2 ; Candidiasis of anus B37.89 ; Bilateral edema of lower extremity R60.0 ; Personal history of venous thrombosis and embolism Z86.718 ; Urinary incontinence, unspecified type R32 ; 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 No Drug and Alcohol Question Answer Notes Total Score: 0 Interpretation: No problems reported BMI Care Goal Follow-Up Question Answer Notes Above Normal BMI Follow-Up Giving encouragement to exercise Tobacco Use: Question Answer Notes Are you a: never smoker REASON FOR REFERRAL No Information VITAL SIGNS Weight 203 lbs Dec, Height 63 in Dec, BMI 35.96 kg/m2 Dec, Heart Rate 76 /min Dec, Respiratory Rate 20 /min Dec, Temperature 97 degrees Fahrenheit Dec, Oximetry 96 Dec, Blood pressure systolic 124 mm Hg Dec, Blood pressure diastolic 70 mm Hg Dec, MEDICATIONS Medication SIG (Take, Route, Frequency, Duration) Notes Start Da te End Date Status Vitamin D3 25 MCG (1000 UT) 1 capsule Orally Once a day for 30 d ay(s) May, Not-Taking Nystatin 946096 UNIT/GM 1 application to affected ar eas [...] times fred ly as needed Active Nystatin 384386 UNIT/GM 1 application to affected ar eas [...] Information RESULTS No Results REASON FOR VISIT yeast infection MEDICAL (GENERAL) HISTORY Type Description Date Medical History vertigo Medical History mixed hyperlipidemia Medical History Essential Hypertension- [facility]: Holter 09/28, Echo 10/28 [facility]H, Nuc. Stress [...] intolerant to CPAP Medical History SVT - [facility] Medical History Bilateral edema of lower extremity Medical History Bilateral PE 01/02 Surgical History colonoscopy(prior with adeno matous polyp) - [facility] (f/up 3-5yrs) 04/22, 06/25, 04/28, 08/29 Surgical History R breast biopsy - benign 04/22 Surgical History varicose veins stripping ? Surgical History L 4/ laminectomy and interspious fusion - Surgical History Left TKR - [facility] 05/2014 Hospitalization History PSVT 08/02 Hospitalization History low back pain 08/03 Hospitalization History syncope/orthostasis 08/04 Hospitalization History bilateral PE, Parkinson's, CKD 01/16- 01/19/17 Hospitalization History Near Syncope 01/31/18-02/09/18 Goals Section No Information Health Concerns No Information MEDICAL EQUIPMENT No Information MENTAL STATUS No Information FUNCTIONAL STATUS No Information ASSESSMENTS Encounter Date Diagnosis Assessment Notes Treatment Notes Treatm ent Clinical Notes Dec, Candidiasis, intertriginous (ICD-10 - B37.2) severe, recurrent in multiple areas - has failed topical treatments, will treat with oral fluconazole and use cream as directed. Advised no cornstarch powder. 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 Advised no cornstarch powder. There is an increased risk of bleeding with eliquis and daughter was advised to monitor for bleeding - she verbalized understanding and agreement Next Appt Details as sched Reason: Provider Name:Adela Shine, 2021-03-30 09:1 5:00 AM, [address] [facility], , [place], [address], Insurance Providers Payer Name Payer Address Payer Phone Insured Name Patient Relati onship to Insured Coverage Start Date Coverage End Date [facility] [address] [facility] [address] [address] [facility] [phone] [phone] ELLEN CURIEL November
--- NOTE | 2021-03-31 13:31 | REP ---
INDICATION: neuro. COMPARISON: 01/31/2018. TECHNIQUE: CT brain performed in the axial plane. Coronal reconstruction images are performed. FINDINGS: There is mild atrophy. There is no midline shift or mass effect. Decker-white differentiation is well maintained. There is no acute intracranial hemorrhage or extra-axial fluid collection. Bone window examination is unremarkable. The visualized mastoid air cells and paranasal sinuses are clear. Vascular calcifications are seen in the carotid siphons. IMPRESSION: Mild chronic atrophy. No acute intracranial hemorrhage, midline shift or mass effect. <Electronically signed by Rafita Decker > 03/31/21 [id number]
--- NOTE | 2021-03-31 13:42 | REP ---
INDICATION: CVA COMPARISON: 01/31/2018 TECHNIQUE: Portable AP view of the chest FINDINGS: The cardiac silhouette is stable. Hiatal hernia noted. The lung hermosillo demonstrate chronic stable changes without acute consolidation, effusion, or pneumothorax. Skeletal structures are intact. IMPRESSION: No acute cardiopulmonary process appreciated. <Electronically signed by Cornelio Oliver > 03/31/21 [id number]
[2021-03-31 14:01] LABS: BASO % 0.4 % (0.0-1.0); EOS # 0.1 10^3/uL (0.0-0.5); EOS % 1.9 % (0.0-3.0); HEMATOCRIT 41.1 % (36.0-47.0); HEMOGLOBIN 12.7 g/dl (12.0-15.5); LYMPH # 0.9 10^3/uL (1.5-5.0); LYMPH % 19.2 % (24.0-44.0); MEAN CORPUSCULAR HEMOGLOBIN 30.5 pg (27.0-33.0); MEAN CORPUSCULAR HGB CONC 30.9 g/dl (32.0-36.5); MEAN CORPUSCULAR VOLUME 98.6 fl (80.0-96.0); MONO # 0.5 10^3/uL (0.0-0.8); MONO % 9.7 % (2.0-8.0); NEUTROPHILS # 3.3 10^3/uL (1.5-8.5); NEUTROPHILS % 68.6 % (36.0-66.0); PLATELET COUNT, AUTOMATED 158 10^3/uL (150-450); RED BLOOD COUNT 4.17 10^6/uL (4.00-5.40); WHITE BLOOD COUNT 4.8 10^3/uL (4.0-10.0)
[2021-03-31 14:42] LABS: RSV AMPLIFICATION NEGATIVE (NEGATIVE)
--- OUTSIDE RECORDS SUMMARY | 2021-03-31 15:00 | CCD ---
Author Author [facility] Organization [facility] Address Unknown Phone Unavailable Care Team Providers Care Operator Maintainer Name Role Phone Kocan, J Wanda GAS STATION ATTENDANT Unavailable Unavailable Kocan, J Wanda GAS STATION ATTENDANT Unavailable Unavailable Kocan, J Wanda GAS STATION ATTENDANT Unavailable Unavailable Kocan, J Wanda GAS STATION ATTENDANT Unavailable Unavailable Kocan, J Wanda GAS STATION ATTENDANT Unavailable Unavailable Kocan, J Wanda GAS STATION ATTENDANT Unavailable Unavailable Kocan, J Wanda GAS STATION ATTENDANT Unavailable Unavailable Kocan, J Wanda GAS STATION ATTENDANT Unavailable Unavailable Kocan, J Wanda GAS STATION ATTENDANT Unavailable Unavailable Kocan, J Wanda GAS STATION ATTENDANT Unavailable Unavailable Kocan, J Wanda GAS STATION ATTENDANT Unavailable Unavailable Kocan, J Wanda GAS STATION ATTENDANT Unavailable Unavailable Kocan, J Wanda GAS STATION ATTENDANT Unavailable Unavailable GALO BOSS MD Unavailable Unavailable GALO BOSS MD Unavailable Unavailable GALO BOSS MD Unavailable Unavailable GALO BOSS MD Unavailable Unavailable GALO BOSS MD Unavailable Unavailable GALO BOSS MD Unavailable Unavailable GALO BOSS MD Unavailable Unavailable GALO BOSS MD Unavailable Unavailable GALO BOSS MD Unavailable Unavailable GALO BOSS MD Unavailable Unavailable AGLO BOSS MD Unavailable Unavailable GALO BOSS MD Unavailable Unavailable GALO BOSS MD Unavailable Unavailable KARYNGALO MD Unavailable Unavailable KARYN, GALO BETH Unavailable [...] J Chanda PA Unavailable Unavailable Trickey, J Hcanda PA Unavailable Unavailable Trickey, J Chanda PA [...] is protected by Article 27-F of the [facility] Public Health law. If you continue you may have access to information: Regarding HIV / AIDS; Provided by facilities licensed or operated by the [facility] Office of Mental Health; or Provided by the [facility] Office for People With Developmental Disabilities. If such information is present, then the following [facility] mandated warning applies: This information has been [...] law may result in a fine or snf sentence or both. A general authorization for the release of medical or other information is NOT sufficient authorization for further disc losure. Encounters Encounter Providers Location Date Indications Data Source(s ) Unknown [address] [facility] [address] 02/04/2021 12:00:00 AM EDT eCW1 ([facility]) Outpatient [address] [facility] [place] [address] 01/07/2021 12:00:00 AM EDT eCW1 ([facility]) Unknown [address] [facility] [place] [address] 01/07/2021 12:00:00 AM EDT eCW1 ([facility]) Unknown [address] [facility] [address] 10/16/2020 12:00:00 AM EDT eCW1 ([facility]) Outpatient Attender: Wanda CONLEY-SJJOSE 2020 12:53:59 PM EDT - 09/30/2020 01:54:32 PM EDT [facility] Outpatient [address] [facility] [address] 09/24/2020 12:00:00 AM EDT eCW1 ([facility]) Unknown [address] [facility] [address] 09/16/2020 12:00:00 AM EDT eCW1 ([facility]) Unknown [address] [facility] [address] 09/01/2020 12:00:00 AM EDT eCW1 ([facility]) Unknown [address] [facility] [address] 07/20/2020 12:00:00 AM EST eCW1 ([facility]) Outpatient [address] [facility] [address] 05/21/2020 12:00:00 AM EST eCW1 ([facility]) Unknown [address] [facility] [address] 04/22/2020 12:00:00 AM EST eCW1 ([facility]) Outpatient Attender: Chanda AUSTIN Main office - [facility] 04/14/2020 08:00:00 AM EDT MEDENT ([facility]) Outpatient Attender: Wanda Banks RNPAttender: GALO CONLEY-SJPJessicaGLADYS 04/01/2020 12:00:00 AM EDT - 04/01/2020 02:49:[address] [facility] Outpatient Attender: MILAN BRYANT 02/27/2020 01:30:00 PM EDT - 02/27/2020 01:30:00 PM EDT [facility] Immunizations Vaccine Date Status Description Data Source(s) COVID-19 dose #1 given elsewhere Unspecified 01/07/2021 11:0 5:00 AM EDT completed eCW1 ([facility]) COVID-19 dose #2 given elsewhere Unspecified 01/07/2021 11:0 5:00 AM EDT completed eCW1 ([facility]) COVID-19 dose #2 given elsewhere Unspecified 01/07/2021 11:0 5:00 AM EDT completed eCW1 ([facility]) COVID-19 dose #1 given elsewhere Unspecified 01/07/2021 11:0 5:00 AM EDT completed eCW1 ([facility]) COVID-19 dose #1 given elsewhere Unspecified 01/07/2021 11:0 5:00 AM EDT completed eCW1 ([facility]) COVID-19 dose #2 given elsewhere Unspecified 01/07/2021 11:0 5:00 AM EDT completed eCW1 ([facility]) COVID-19 VACCINE Moderna 11/03/2020 12:00:00 AM EDT completed [facility] Vaccine Series Complete: YESThis Data wa s Submitted to [facility] Via [employer]. COVID-19 VACCINE Moderna 10/06/2020 12:00:00 AM EDT completed [place] Vaccine Series Complete: NOThis Data was Submitted to [facility] Via [employer]. influenza, recombinant, quadrIvalent,injectable, prese rvative free 05/21/2020 03:00:00 PM EST completed eCW1 ([facility]) influenza, recombinant, quadrIvalent,injectable, prese rvative free 05/21/2020 03:00:00 PM EST completed eCW1 ([facility]) influenza, recombinant, quadrIvalent,injectable, prese rvative free 05/21/2020 03:00:00 PM EST completed eCW1 ([facility]) influenza, recombinant, quadrIvalent,injectable, prese rvative free 05/21/2020 03:00:00 PM EST completed eCW1 ([facility]) influenza, recombinant, quadrIvalent,injectable, prese rvative free 05/21/2020 03:00:00 PM EST completed eCW1 ([facility]) influenza, recombinant, quadrIvalent,injectable, prese rvative free 05/21/2020 03:00:00 PM EST completed eCW1 ([facility]) influenza, recombinant, quadrIvalent,injectable, prese rvative free 05/21/2020 03:00:00 PM EST completed eCW1 ([facility]) influenza, recombinant, quadrIvalent,injectable, prese rvative free 05/21/2020 03:00:00 PM EST completed eCW1 ([facility]) influenza, recombinant, quadrIvalent,injectable, prese rvative free 05/21/2020 03:00:00 PM EST completed eCW1 ([facility]) Medications Medication Brand Name Start Date Product Form Dose Route Admi nistrative Instructions Pharmacy Instructions Status Indications Reaction Description Data Source(s) 100,000 unit/gram 01/07/2021 12:00:00 AM EDT cream 90 APPLY TOPICALLY TWICE A DAY TO AFFECTED AREAS OF GROIN, ANUS AND UNDER BREAST APPLY TOPICALLY TWICE A DAY TO AFFECTED AREAS OF GROIN, ANUS AND UNDER BREAST SOLD: 01/07/2021 [email or web address] Fluconazole 150 MG Oral Tablet Fluconazole 150 MG 01/07/2021 12:00: 00 AM EDT 1.0 {tablet} active Fluconazole 150 MG eCW1 ([facility]) Fluconazole 150 MG Oral Tablet Fluconazole 150 MG 01/07/2021 12:00: 00 AM EDT 1.0 {tablet} active Fluconazole 150 MG eCW1 ([facility]) Fluconazole 150 MG Oral Tablet Fluconazole 150 MG 01/07/2021 12:00: 00 AM EDT 1.0 {tablet} active Fluconazole 150 MG W1 ([facility]) 150 mg 01/07/2021 12:00:00 AM EDT tablet 15 TAKE 1 TABLET BY MOUTH EVERY 3 DAYS FOR 3 DOSES THEN TAKE 1 TABLET ONCE WEEKLY TAKE 1 TABLET BY MOUTH EVERY 3 DAYS FOR 3 DOSES THEN TAKE 1 TABLET ONCE WEEKLY SOLD: 01/07/2021 [email or web address] Levothyroxine Sodium 0.112 MG Oral Table t levothyroxine (SYNTHROID, LEVOTHROID) 112 MCG tablet levothyroxine (SYNTHROID, LEVOTHROID) 112 MCG tablet 0 09/01/2020 12:00:[address] [facility] Cholecalciferol 1000 UNT Oral Capsule Vitamin D3 25 MC G (1000 UT) Vitamin D3 25 MCG (1000 UT) 05/21/2020 12:00:00 AM EST 1.0 {capsule} suspended Vitamin D3 25 MCG (1000 UT) eC ([facility]) Cholecalciferol 1000 UNT Oral Capsule Vitamin D3 25 MC G (1000 UT) Vitamin D3 25 MCG (1000 UT) 05/21/2020 12:00:00 AM EST 1.0 {capsule} active Vitamin D3 25 MCG (1000 UT) eC ([facility]) Cholecalciferol 1000 UNT Oral Capsule Vitamin D3 25 MC G (1000 UT) Vitamin D3 25 MCG (1000 UT) 05/21/2020 12:00:00 AM EST 1.0 {capsule} active Vitamin D3 25 MCG (1000 UT) eC ([facility]) Cholecalciferol 1000 UNT Oral Capsule Vitamin D3 25 MC G (1000 UT) Vitamin D3 25 MCG (1000 UT) 05/21/2020 12:00:00 AM EST 1.0 {capsule} active Vitamin D3 25 MCG (1000 UT) [facility] ([facility]) Cholecalciferol 1000 UNT Oral Capsule Vitamin D3 25 MC G (1000 UT) Vitamin D3 25 MCG (1000 UT) 05/21/2020 12:00:00 AM EST 1.0 {capsule} suspended Vitamin D3 25 MCG (1000 UT) eC ([facility]) Cholecalciferol 1000 UNT Oral Capsule Vitamin D3 25 MC G (1000 UT) Vitamin D3 25 MCG (1000 UT) 05/21/2020 12:00:00 AM EST 1.0 {capsule} active Vitamin D3 25 MCG (1000 UT) eC ([facility]) Cholecalciferol 1000 UNT Oral Capsule Vitamin D3 25 MC G (1000 UT) Vitamin D3 25 MCG (1000 UT) 05/21/2020 12:00:00 AM EST 1.0 {capsule} suspended Vitamin D3 25 MCG (1000 UT) eC ([facility]) Cholecalciferol 1000 UNT Oral Capsule Vitamin D3 25 MC G (1000 UT) Vitamin D3 25 MCG (1000 UT) 05/21/2020 12:00:00 AM EST 1.0 {capsule} suspended Vitamin D3 25 MCG (1000 UT) eCW1 ([facility]) Cholecalciferol 1000 UNT Oral Capsule Vitamin D3 25 MC G (1000 UT) Vitamin D3 25 MCG (1000 UT) 05/21/2020 12:00:00 AM EST 1.0 {capsule} suspended Vitamin D3 25 MCG (1000 UT) eCW1 ([facility]) Insurance Providers Payer name Policy type / Coverage type Policy ID Covered constitution party ID Covered constitution party's relationship to clark Policy Clark Plan Information AMER PROG TODAYS OPTIONS G [id number] Self [id number] [facility] MEDIC[facility] [id number] Tammy 27 [id number] [facility] MEDICARE [id number] xxxxxxxx [id number] SELF PAY UNAVAILABLE UNAVAILA BLE SELF PAY UNAVAILABLE S UNAVAILA BLE MEDICARE [id number] SP [id number] ANSI-Medicare Part B [id number] ANSI-Medicare Part B [id number] ANSI-Medicare Part B [id number] ANSI-Medicare Part B [id number] [facility] [id number] [facility] [id number] ANSI-Medicare Part B [id number] ANSI-Medicare Part B [id number] ANSI-Medicare Part B [id number] ANSI-Medicare Part B [id number] ANSI-Medicare Part B [id number] ANSI-Medicare Part B [id number] ANSI-Medicare Part B [id number] ANSI-Medicare Part B [id number] ANSI-Medicare Part B [id number] ANSI-Medicare Part B [id number] ANSI-Medicare Part B [id number] ANSI-Medicare Part B [id number] ANSI-Medicare Part B [id number] ANSI-Medicare Part B [id number] ANSI-Medicare Part B [id number] ANSI-Medicare Part B [id number] ANSI-Medicare Part B [id number] ANSI-Medicare Part B [id number] ANSI-Medicare Part B [id number] ANSI-Medicare Part B [id number] ANSI-Medicare Part B [id number] ANSI-Medicare Part B [id number] ANSI-Medicare Part B [id number] ANSI-Medicare Part B [id number] ANSI-Medicare Part B [id number] ANSI-Medicare Part B [id number] ANSI-Medicare Part B [id number] TODAYS OPTIONS [id number] [place] [id number] ANSI-Medicare Part B [id number] ANSI-Medicare Part B [id number] ANSI-Medicare Part B [id number] ANSI-Medicare Part B [id number] ANSI-Medicare Part B [id number] ANSI-Medicare Part B [id number] Medicare Part B Medicare Primary [id number] Self [id number] ANSI-Medicare Part B [id number] ANSI-Medicare Part B [id number] ANSI-Medicare Part B [id number] ANSI-Medicare Part B [id number] ANSI-Medicare Part B [id number] ANSI-Medicare Part B [id number] ANSI-Medicare Part B [id number] Today's Options [employer] [id number] Self [id number] Medicare Solutions Commercial [id number] Self [id number] TODAYS OPTIONS/SAO T[place]AN O [id number] S [id number] Today's FamilySkyline [id number] Self [id number] MEDICARE COMPLETE [id number] SP [id number] Medicare emaze [id number] Self [id number] MEDICARE COMPLETE [id number] SP [id number] MEDICARE COMPLETE [id number] SP [id number] Medicare Solutions Commercial [id number] Self [id number] MEDICARE COMPLETE [id number] SP [id number] MEDICARE [id number] SP [id number] A [employer] [id number] Self MEDICARE RIGO O [id number] S [id number] [facility] MCARE COMPLETE O [id number] S [id number] [employer] PROGRESSIVE O [id number] S [id number] [employer] PROGRESSIVE O [id number] S [id number] [facility] MEDICARE COMPLET O [id number] S [id number] MEDICARE COMPLETE-[facility] P [id number] S [id number] UNAVAILABLE UNAVAILA BLE WELLCARE [id number] SP [id number] MEDICARE PART A [facility] [id number] 18 [id number] WE[employer] HE[employer] PLANS [id number] S [id number] Problems, Conditions, and Diagnoses Code Display Name Description Problem Type Effective Dates Data Source(s) R55 Syncope and collapse Syncope and collapse Diagnosis 09/30/2020 12:53:[address] [facility] Z86.711 Personal history of pulmonary embolism P ersonal history of pulmonary embolism Diagnosis 09/30/2020 12:53:[address] [facility] G20 Parkinson's disease Parkinson's disease Diagnosis 0 09/30/2020 12:53:[address] [facility] Z68.38 Body mass index (BMI) 38.0-38.9, adult B dimitri mass index (BMI) 38.0-38.9, adult Diagnosis 09/30/2020 12:53:[address] [facility] E66.09 Other obesity due to excess calories Oth er obesity due to excess calories Diagnosis 09/30/2020 12:53:[address] [facility] E03.9 Hypothyroidism, unspecified Hypothyroidism, unspecifie d Diagnosis 09/30/2020 12:53:[address] [facility] R60.9 Edema, unspecified Edema, unspecified Diagnosis 12:53:[address] [facility] I10 Essential (primary) hypertension Essential (primary) h ypertension Diagnosis 09/30/2020 12:53:[address] 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 E78.5 Hyperlipidemia, unspecified Hyperlipidemia, unspecifie d Diagnosis 09/30/2020 12:53:[address] [facility] M19.90 Unspecified osteoarthritis, unspecified site Unspecified osteoarthritis, unspecified Diagnosis 04/01/2020 01:03:[address] [facility] M2040 Other hammer toe(s) (acquired), unspecif ied foot Other hammer toe(s) (acquired), unspecified foot Diagnosis 02/27/2020 01:30:00 PM EDT [facility] M2010 Hallux valgus (acquired), unspecified fo ot Hallux valgus (acquired), unspecified foot Diagnosis 02/27/2020 01:30:00 PM EDT [facility] G20 Parkinson's disease Parkinson's disease Diagnosis 0 02/27/2020 01:30:00 PM EDT [facility] G90648 Pain in left foot Pain in left foot Diagnosis 02/27/2020 01:30:00 PM EDT [facility] Z83013 Pain in right foot Pain in right foot Diagnosis 03/2020 01:30:00 PM EDT [facility] L84 Corns and callosities Corns and callosities Diagnosis 02/27/2020 01:30:00 PM EDT [facility] B351 Tinea unguium Tinea unguium Diagnosis 02/27/2020 01:30:00 PM EDT [facility] 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, bilateral legs Unspecified atherosclerosis of [place] ar teries of extremities, bilateral legs Diagnosis 02/27/2020 01:30:00 PM EDT [facility] B37.2 [id number] Candidiasis, intertriginous Problem 01/08/20 21 12:00:00 AM EDT eCW1 ([facility]) Surgeries/Procedures Procedure Description Date Indications Data Source(s) Immunization: Flublok Quadrivalent (18 years & older) 0.5mL IM (Influenza) 05/21/2020 12:00:00 AM EST eCW1 ([facility]) Results ID Date Data Source MAGNESIUM LEVEL 09/24/2020 12:00:00 AM EDT eCW1 ([facility]) Name Value Range Interpretation Code Description Data Jessica rce(s) Supporting Document(s) 2.3 1.8-2.4 MAGNESIUM LEVEL eCW1 ([facility]) ID Date Data Source VITAMIN D 25-HYDROXY 09/24/2020 12:00:00 AM EDT eCW1 ([facility]) Name Value Range Interpretation Code Description Data Jessica rce(s) Supporting Document(s) 21.1 30.0-100.0 TOTAL 25(OH) VITAMIN D eC W1 ([facility]) ID Date Data Source [id number] 09/24/2020 12:00:00 AM EDT eCW1 ([facility]) Name Value Range Interpretation Code Description Data Jessica rce(s) Supporting Document(s) Hemoglobin A1c/Hemoglobin.total in Blood 6.3 HEMOGLOBIN A1c eCW1 ([facility]) ID Date Data Source FREE T4 & TSH PANEL 09/24/2020 12:00:00 AM EDT eCW1 ([facility]) Name Value Range Interpretation Code Description Data Jessica rce(s) Supporting Document(s) 2.970 0.358-3.740 THYROID STIMULATING HORM ONE eCW1 ([facility]) 1.22 0.76-1.46 FREE T4 eCW1 ([facility]) ID Date Data Source Comprehensive Metabolic Profile (CMP) 09/24/2020 12:00:00 AM EDT eCW1 ([facility]) Name Value Range Interpretation Code Description Data Jessica rce(s) Supporting Document(s) 110 70-100 GLUCOSE, FASTING eCW1 ([facility]) 33 7-18 BLOOD UREA NITROGEN eCW1 ([facility]) 0.90 0.55-1.30 CREATININE FOR GFR eCW1 ([facility]) > 60.0 >32 GLOMERULAR FILTRATION RATE eCW 1 ([facility]) 141 136-145 SODIUM LEVEL eCW1 ([facility]) 5.0 3.5-5.1 POTASSIUM SERUM eCW1 ([facility]) 33 21-32 CARBON DIOXIDE LEVEL eCW1 ([facility]) 105 98-107 CHLORIDE LEVEL eCW1 ([facility]) 9.4 8.8-10.2 CALCIUM LEVEL eCW1 ([facility]) 103 45-117 ALKALINE PHOSPHATASE eCW1 ([facility]) 22 12-78 ALT/SGPT eCW1 ([facility]) 14 7-37 AST/SGOT eCW1 ([facility]) 0.3 0.2-1.0 BILIRUBIN,TOTAL eCW1 ([facility]) 6.9 6.4-8.2 TOTAL PROTEIN eCW1 ([facility]) 3.5 3.2-5.2 ALBUMIN eCW1 ([facility]) 1.0 1.2-2.2 ALBUMIN/GLOBULIN RATIO eCW1 ([facility]) Procedure Social History Code Duration Value Status Description Data Source(s ) Smoking 02/04/2021 12:00:00 AM EDT Never Smoker completed Never S moker eCW1 ([facility]) Smoking 01/07/2021 12:00:00 AM EDT Never Smoker completed Never S moker eCW1 ([facility]) Smoking 01/07/2021 12:00:00 AM EDT Never Smoker completed Never S moker eCW1 ([facility]) Alcohol intake 09/30/2020 12:00:00 AM EDT Not Currently completed [facility] Smoking 09/30/2020 12:00:00 AM EDT Never smoker completed Never s moker [facility] Smoking 09/24/2020 12:00:00 AM EDT Never Smoker completed Never S moker eCW1 ([facility]) Smoking 09/24/2020 12:00:00 AM EDT Never Smoker completed Never S moker eCW1 ([facility]) Smoking 05/21/2020 12:00:00 AM EST Never Smoker completed Never S moker eCW1 ([facility]) Smoking 05/21/2020 12:00:00 AM EST Never Smoker completed Never S moker eCW1 ([facility]) Smoking 05/21/2020 12:00:00 AM EST Never Smoker completed Never S moker eCW1 ([facility]) Smoking 05/21/2020 12:00:00 AM EST Never Smoker completed Never S moker eCW1 ([facility]) Vital Signs ID Date Data Source UNK Name Value Range Interpretation Code Description Data Source(s) Body weight 203 [lb_av] 203 [lb_av] eCW1 ([facility]) Body height 63 [in_i] 63 [in_i] eCW1 ([facility]) Body mass index (BMI) [Ratio] 35.96 kg/m2 35.96 kg/m2 eCW1 ([facility]) Heart rate 76 /min 76 /min eCW1 ([facility]) Respiratory rate 20 /min 20 /min eCW1 ([facility] Body temperature 97 [degF] 97 [degF] eCW1 ([facility]) Systolic blood pressure 124 mm[Hg] 124 mm[Hg] e CW1 ([facility]) Diastolic blood pressure 70 mm[Hg] 70 mm[Hg] eCW1 ([facility]) Systolic blood pressure 118 mm[Hg] 118 mm[Hg] [facility] Diastolic blood pressure 70 mm[Hg] 70 mm[Hg] [facility] Heart rate 62 /min 62 /min [facility] Body height [address] [facility] Body weight 90.[address] [facility] Body mass index (BMI) [Ratio] 35.43 kg/m2 35.43 kg/m2 [facility] Oxygen saturation in Arterial blood by Pulse oximetry 97 % 97 % [facility] Body weight 206 [lb_av] 206 [lb_av] W1 ([facility]) Body height [in_i] eCW1 ([facility]) Body mass index (BMI) [Ratio] 36.49 kg/m2 36.49 kg/m2 eCW1 ([facility]) Heart rate 80 /min 80 /min eCW1 ([facility]) Respiratory rate 20 /min 20 /min eCW1 ([facility]) Body temperature 97.1 [degF] 97.1 [degF] eCW1 ( [facility]) Systolic blood pressure 130 mm[Hg] 130 mm[Hg] e CW1 ([facility]) Diastolic blood pressure 84 mm[Hg] 84 mm[Hg] eCW1 ([facility]) Body weight 200 [lb_av] 200 [lb_av] W1 ([facility]) Body height 63 [in_i] 63 [in_i] eCW1 ([facility]) Body mass index (BMI) [Ratio] 35.42 kg/m2 35.42 kg/m2 eCW1 ([facility]) Heart rate 76 /min 76 /min eCW1 ([facility]) Respiratory rate 20 /min 20 /min eCW1 ([facility]) Body temperature 97.6 [degF] 97.6 [degF] eCW1 ( [facility]) Systolic blood pressure 110 mm[Hg] 110 mm[Hg] e CW1 ([facility]) Diastolic blood pressure 80 mm[Hg] 80 mm[Hg] eCW1 ([facility]) Systolic blood pressure 110 mm[Hg] 110 mm[Hg] M EDENT ([facility]) Heart rate 76 /min 76 /min MEDENT ([facility]) Respiratory rate 20 /min 20 /min MEDENT ( [facility]) Diastolic blood pressure 70 mm[Hg] 70 mm[Hg] MEDENT ([facility]) Patient Treatment Plan of Care Planned Activity Planned Date Details Description Data Source (s) Fluconazole 150 MG Oral Tablet 01/07/2021 12:00:00 AM EDT eCW1 ([facility]) Fluconazole 150 MG Oral Tablet 01/07/2021 12:00:00 AM EDT eCW1 ([facility]) Levothyroxine Sodium 0.112 MG Oral Tablet 09/01/2020 12:00:[address] [facility] Cholecalciferol 1000 UNT Oral Capsule 05/21/2020 12:00:00 AM EST eCW1 ([facility]) Cholecalciferol 1000 UNT Oral Capsule 05/21/2020 12:00:00 AM EST eCW1 ([facility]) Cholecalciferol 1000 UNT Oral Capsule 05/21/2020 12:00:00 AM EST eCW1 ([facility]) Cholecalciferol 1000 UNT Oral Capsule 05/21/2020 12:00:00 AM EST eCW1 ([facility])
[2021-03-31 17:39] LABS: BLOOD UREA NITROGEN 33 MG/DL (7-18); CALCIUM LEVEL 9.3 MG/DL (8.8-10.2); CARBON DIOXIDE LEVEL 35 MEQ/L (21-32); CHLORIDE LEVEL 106 MEQ/L (98-107); CK-MB VALUE MASS 1.8 NG/ML (<3.6); CPK CREATINE PHOSPHOKINASE 26 U/L (26-192); CREATININE FOR GFR 1.29 MG/DL (0.55-1.30); GLOMERULAR FILTRATION RATE 41.8 (>32); GLUCOSE, FASTING 85 MG/DL (70-100); MB/CK RELATIVE INDEX 6.92 (< OR =4); POTASSIUM SERUM 4.7 MEQ/L (3.5-5.1); SODIUM LEVEL 144 MEQ/L (136-145); TROPONIN I < 0.02 NG/ML (< 0.10)
--- OUTSIDE RECORDS SUMMARY | 2021-03-31 19:40 | CCD ---
Author Author [facility] Organization [facility] Address Unknown Phone Unavailable Care Team Providers Care Mechanical Applications Engineer Name Role Phone Kocan, J Wanda SMART GRID ENGINEER Unavailable Unavailable Kocan, J Wanda SMART GRID ENGINEER Unavailable Unavailable Kocan, J Wanda SMART GRID ENGINEER Unavailable Unavailable Kocan, J Wanda SMART GRID ENGINEER Unavailable Unavailable Kocan, J Wanda SMART GRID ENGINEER Unavailable Unavailable Kocan, J Wanda SMART GRID ENGINEER Unavailable Unavailable Kocan, J Wanda SMART GRID ENGINEER Unavailable Unavailable Kocan, J Wanda SMART GRID ENGINEER Unavailable Unavailable Kocan, J Wanda SMART GRID ENGINEER Unavailable Unavailable Kocan, J Wanda SMART GRID ENGINEER Unavailable Unavailable Kocan, J Wanda SMART GRID ENGINEER Unavailable Unavailable Kocan, J Wanda SMART GRID ENGINEER Unavailable Unavailable Kocan, J Wanda SMART GRID ENGINEER Unavailable Unavailable AGLO BOSS MD Unavailable Unavailable [...] is protected by Article 27-F of the [facility] Public Health law. If you continue you may have access to information: Regarding HIV / AIDS; Provided by facilities licensed or operated by the [facility] Office of Mental Health; or Provided by the [facility] Office for People With Developmental Disabilities. If such information is present, then the following [facility] mandated warning applies: This information has [...] law may result in a fine or residential sentence or both. A general authorization for the release of medical or other information is NOT sufficient authorization for further disc losure. Encounters Encounter Providers Location Date Indications Data Source(s ) Unknown [address] [facility] [address] 02/04/2021 12:00:00 AM EDT eCW1 ([facility]) [place]patient [address] [facility] [place] [address] 01/07/2021 12:00:00 AM EDT eCW1 ([facility]) Unknown [address] [facility] [place] [address] 01/07/2021 12:00:00 AM EDT eCW1 ([facility]) Unknown [address] [facility] [address] 10/16/2020 12:00:00 AM EDT eCW1 ([facility]) Outpatient Attender: Wanda CONLEY-SJJOSE 2020 12:53:59 PM EDT - 09/30/2020 01:54:32 PM EDT Health system Outpatient [address] [facility] [address] 09/24/2020 12:00:00 AM EDT eCW1 ([facility]) Unknown [address] [facility] [address] 09/16/2020 12:00:00 AM EDT eCW1 ([facility]) Unknown [address] [facility] [address] 09/01/2020 12:00:00 AM EDT eCW1 ([facility]) Unknown [address] [facility] [address] 07/20/2020 12:00:00 AM EST eCW1 ([facility]) Outpatient [address] [facility] [address] 05/21/2020 12:00:00 AM EST eCW1 ([facility]) Unknown [address] [facility] [address] 04/22/2020 12:00:00 AM EST eCW1 ([facility]) Outpatient Attender: Chanda AUSTIN Main office - [facility] 04/14/2020 08:00:00 AM EDT MEDENT ([facility]) Outpatient Attender: Wanda Banks RNPAttender: GALO CONLEY-SJPJessicaGLADYS 04/01/2020 12:00:00 AM EDT - 04/01/2020 02:49:36 PM EDT [facility] Outpatient Attender: MILAN BRYANT 02/27/2020 01:30:00 PM EDT - 02/27/2020 01:30:00 PM EDT [facility] Immunizations Vaccine Date Status Description Data Source(s) COVID-19 dose #1 given elsewhere Unspecified 01/07/2021 11:0 5:00 AM EDT completed eCW1 ([facility]) COVID-19 dose #2 given elsewhere Unspecified 01/07/2021 11:0 5:00 AM EDT completed eCW1 ([facility]) COVID-19 dose #2 given elsewhere Unspecified 01/07/2021 11:0 5:00 AM EDT completed eCW1 ([facility]) COVID-19 dose #1 given elsewhere Unspecified 01/07/2021 11:0 5:00 AM EDT completed eCW1 ([facility]) COVID-19 dose #1 given elsewhere Unspecified 01/07/2021 11:0 5:00 AM EDT completed eCW1 ([facility]) COVID-19 dose #2 given elsewhere Unspecified 01/07/2021 11:0 5:00 AM EDT completed eCW1 ([facility]) COVID-19 VACCINE Moderna 11/03/2020 12:00:00 AM EDT completed [facility] Vaccine Series Complete: YESThis Data wa s Submitted to [facility] Via NYSIViaBill. COVID-19 VACCINE Moderna 10/06/2020 12:00:00 AM EDT completed [facility] Vaccine Series Complete: NOThis Data was Submitted to [facility] Via TipTap. influenza, recombinant, quadrIvalent,injectable, prese rvative free 05/21/2020 03:00:00 PM EST completed eCW1 ([facility]) influenza, recombinant, quadrIvalent,injectable, prese rvative free 05/21/2020 03:00:00 PM EST completed eCW1 ([facility]) influenza, recombinant, quadrIvalent,injectable, prese rvative free 05/21/2020 03:00:00 PM EST completed eCW1 ([facility]) influenza, recombinant, quadrIvalent,injectable, prese rvative free 05/21/2020 03:00:00 PM EST completed eCW1 ([facility]) influenza, recombinant, quadrIvalent,injectable, prese rvative free 05/21/2020 03:00:00 PM EST completed eCW1 ([facility]) influenza, recombinant, quadrIvalent,injectable, prese rvative free 05/21/2020 03:00:00 PM EST completed eCW1 ([facility]) influenza, recombinant, quadrIvalent,injectable, prese rvative free 05/21/2020 03:00:00 PM EST completed eCW1 ([facility]) influenza, recombinant, quadrIvalent,injectable, prese rvative free 05/21/2020 03:00:00 PM EST completed eCW1 ([facility]) influenza, recombinant, quadrIvalent,injectable, prese rvative free 05/21/2020 03:00:00 PM EST completed eCW1 ([facility]) Medications Medication Brand Name Start Date Product Form Dose Route Admi nistrative Instructions Pharmacy Instructions Status Indications Reaction Description Data Source(s) 100,000 unit/gram 01/07/2021 12:00:00 AM EDT cream 90 APPLY TOPICALLY TWICE A DAY TO AFFECTED AREAS OF GROIN, ANUS AND UNDER BREAST APPLY TOPICALLY TWICE A DAY TO AFFECTED AREAS OF GROIN, ANUS AND UNDER BREAST SOLD: 01/07/2021 [facility] Fluconazole 150 MG Oral Tablet Fluconazole 150 MG 01/07/2021 12:00: 00 AM EDT 1.0 {tablet} active Fluconazole 150 MG eCW1 ([facility]) Fluconazole 150 MG Oral Tablet Fluconazole 150 MG 01/07/2021 12:00: 00 AM EDT 1.0 {tablet} active Fluconazole 150 MG eCW1 ([facility]) Fluconazole 150 MG Oral Tablet Fluconazole 150 MG 01/07/2021 12:00: 00 AM EDT 1.0 {tablet} active Fluconazole 150 MG W1 ([facility]) 150 mg 01/07/2021 12:00:00 AM EDT tablet 15 TAKE 1 TABLET BY MOUTH EVERY 3 DAYS FOR 3 DOSES THEN TAKE 1 TABLET ONCE WEEKLY TAKE 1 TABLET BY MOUTH EVERY 3 DAYS FOR 3 DOSES THEN TAKE 1 TABLET ONCE WEEKLY SOLD: 01/07/2021 [facility] Levothyroxine Sodium 0.112 MG Oral Table t levothyroxine (SYNTHROID, LEVOTHROID) 112 MCG tablet levothyroxine (SYNTHROID, LEVOTHROID) 112 MCG tablet 0 09/01/2020 12:00:00 AM EDT aborted [facility] Cholecalciferol 1000 UNT Oral Capsule Vitamin D3 25 MC G (1000 UT) Vitamin D3 25 MCG (1000 UT) 05/21/2020 12:00:00 AM EST 1.0 {capsule} suspended Vitamin D3 25 MCG (1000 UT) eC ([facility]) Cholecalciferol 1000 UNT Oral Capsule Vitamin D3 25 MC G (1000 UT) Vitamin D3 25 MCG (1000 UT) 05/21/2020 12:00:00 AM EST 1.0 {capsule} active Vitamin D3 25 MCG (1000 UT) eC ([facility]) Cholecalciferol 1000 UNT Oral Capsule Vitamin D3 25 MC G (1000 UT) Vitamin D3 25 MCG (1000 UT) 05/21/2020 12:00:00 AM EST 1.0 {capsule} active Vitamin D3 25 MCG (1000 UT) eC ([facility]) Cholecalciferol 1000 UNT Oral Capsule Vitamin D3 25 MC G (1000 UT) Vitamin D3 25 MCG (1000 UT) 05/21/2020 12:00:00 AM EST 1.0 {capsule} active Vitamin D3 25 MCG (1000 UT) [facility] ([facility]) Cholecalciferol 1000 UNT Oral Capsule Vitamin D3 25 MC G (1000 UT) Vitamin D3 25 MCG (1000 UT) 05/21/2020 12:00:00 AM EST 1.0 {capsule} suspended Vitamin D3 25 MCG (1000 UT) eC ([facility]) Cholecalciferol 1000 UNT Oral Capsule Vitamin D3 25 MC G (1000 UT) Vitamin D3 25 MCG (1000 UT) 05/21/2020 12:00:00 AM EST 1.0 {capsule} active Vitamin D3 25 MCG (1000 UT) eC ([facility]) Cholecalciferol 1000 UNT Oral Capsule Vitamin D3 25 MC G (1000 UT) Vitamin D3 25 MCG (1000 UT) 05/21/2020 12:00:00 AM EST 1.0 {capsule} suspended Vitamin D3 25 MCG (1000 UT) eC ([facility]) Cholecalciferol 1000 UNT Oral Capsule Vitamin D3 25 MC G (1000 UT) Vitamin D3 25 MCG (1000 UT) 05/21/2020 12:00:00 AM EST 1.0 {capsule} suspended Vitamin D3 25 MCG (1000 UT) eCW1 ([facility]) Cholecalciferol 1000 UNT Oral Capsule Vitamin D3 25 MC G (1000 UT) Vitamin D3 25 MCG (1000 UT) 05/21/2020 12:00:00 AM EST 1.0 {capsule} suspended Vitamin D3 25 MCG (1000 UT) eCW1 ([facility]) Insurance Providers Payer name Policy type / Coverage type Policy ID Covered republican ID Covered republican's relationship to clark Policy Clark Plan Information AMER PROG TODAYS OPTIONS G [id number] Self [id number] [facility] MEDIC[facility] [id number] Tammy [id number] [facility] MEDICARE [id number] xxxxxxxx [id number] SELF PAY UNAVAILABLE UNAVAILA BLE SELF PAY UNAVAILABLE S UNAVAILA BLE MEDICARE [id number] SP [id number] ANSI-Medicare Part B [id number] ANSI-Medicare Part B [id number] ANSI-Medicare Part B [id number] ANSI-Medicare Part B [id number] [facility] [id number] [facility] [id number] ANSI-Medicare Part B [id number] ANSI-Medicare Part B [id number] ANSI-Medicare Part B [id number] ANSI-Medicare Part B [id number] ANSI-Medicare Part B [id number] ANSI-Medicare Part B [id number] ANSI-Medicare Part B [id number] ANSI-Medicare Part B [id number] ANSI-Medicare Part B [id number] ANSI-Medicare Part B [id number] ANSI-Medicare Part B [id number] ANSI-Medicare Part B [id number] ANSI-Medicare Part B [id number] ANSI-Medicare Part B [id number] ANSI-Medicare Part B [id number] ANSI-Medicare Part B [id number] ANSI-Medicare Part B [id number] ANSI-Medicare Part B [id number] ANSI-Medicare Part B [id number] ANSI-Medicare Part B [id number] ANSI-Medicare Part B [id number] ANSI-Medicare Part B [id number] ANSI-Medicare Part B [id number] ANSI-Medicare Part B [id number] ANSI-Medicare Part B [id number] ANSI-Medicare Part B [id number] ANSI-Medicare Part B [id number] TODAYS OPTIONS [id number] SP [id number] ANSI-Medicare Part B [id number] ANSI-Medicare Part B [id number] ANSI-Medicare Part B [id number] ANSI-Medicare Part B [id number] ANSI-Medicare Part B [id number] ANSI-Medicare Part B [id number] Medicare Part B Medicare Primary [id number] Self [id number] ANSI-Medicare Part B [id number] ANSI-Medicare Part B [id number] ANSI-Medicare Part B [id number] ANSI-Medicare Part B [id number] ANSI-Medicare Part B [id number] ANSI-Medicare Part B [id number] ANSI-Medicare Part B [id number] Today's Options Mobile[employer] [id number] Self [id number] Medicare Solutions Commercial [id number] Self [id number] TODAYS OPTIONS/LEBANESE O [id number] S [id number] Today's [place] [id number] Self [id number] MEDICARE COMPLETE [id number] SP [id number] Medicare [place] [id number] Self [id number] MEDICARE COMPLETE [id number] SP [id number] MEDICARE COMPLETE [id number] SP [id number] Medicare Solutions Commercial [id number] Self [id number] MEDICARE COMPLETE [id number] SP [id number] MEDICARE [id number] SP [id number] A [employer] [id number] Self MEDICARE RIGO O [id number] S [id number] [facility] MCARE COMPLETE O [id number] S [id number] LEBANESE PROGRESSIVE O [id number] S [id number] LEBANESE PROGRESSIVE O [id number] S [id number] [facility] MEDICARE COMPLET O [id number] S [id number] MEDICARE COMPLETE-[facility] P [id number] S [id number] UNAVAILABLE UNAVAILA BLE WELLCARE [id number] SP [id number] MEDICARE PART A [facility] [id number] 18 [id number] WELLCARE HEALTH PLANS [id number] S [id number] Problems, Conditions, and Diagnoses Code Display Name Description Problem Type Effective Dates Data Source(s) R55 Syncope and collapse Syncope and collapse Diagnosis 09/30/2020 12:53:59 PM EDT [facility] Z86.711 Personal history of pulmonary embolism P ersonal history of pulmonary embolism Diagnosis 09/30/2020 12:53:59 PM EDT [facility] G20 Parkinson's disease Parkinson's disease Diagnosis 0 09/30/2020 12:53:59 PM EDT [facility] Z68.38 Body mass index (BMI) 38.0-38.9, adult B dimitri mass index (BMI) 38.0-38.9, adult Diagnosis 09/30/2020 12:53:59 PM EDT [facility] E66.09 Other obesity due to excess calories Oth er obesity due to excess calories Diagnosis 09/30/2020 12:53:59 PM EDT [facility] E03.9 Hypothyroidism, unspecified Hypothyroidism, unspecifie d Diagnosis 09/30/2020 12:53:59 PM EDT [facility] R60.9 Edema, unspecified Edema, unspecified Diagnosis 12:53:59 PM EDT [facility] I10 Essential (primary) hypertension Essential (primary) h ypertension Diagnosis 09/30/2020 12:53:59 PM EDT [facility] 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 M2010 Hallux valgus (acquired), unspecified fo ot Hallux valgus (acquired), unspecified foot Diagnosis 02/27/2020 01:30:00 PM EDT [facility] G20 Parkinson's disease Parkinson's disease Diagnosis 0 02/27/2020 01:30:00 PM EDT [facility] [id number] Pain in left foot Pain in left foot Diagnosis 02/27/2020 01:30:00 PM EDT [facility] [id number] Pain in right foot Pain in right foot Diagnosis 03/2020 01:30:00 PM EDT [facility] L84 Corns and callosities Corns and callosities Diagnosis 02/27/2020 01:30:00 PM EDT [facility] B351 Tinea unguium Tinea unguium Diagnosis 02/27/2020 01:30:00 PM EDT [facility] 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, bilateral legs Unspecified atherosclerosis of mohegan ar teries of extremities, bilateral legs Diagnosis 02/27/2020 01:30:00 PM EDT [facility] B37.2 [id number] Candidiasis, intertriginous Problem 01/08/20 21 12:00:00 AM EDT eCW1 ([facility]) Surgeries/Procedures Procedure Description Date Indications Data Source(s) Immunization: Flublok Quadrivalent (18 years & older) 0.5mL IM (Influenza) 05/21/2020 12:00:00 AM EST eCW1 ([facility]) Results ID Date Data Source MAGNESIUM LEVEL 09/24/2020 12:00:00 AM EDT eCW1 ([facility]) Name Value Range Interpretation Code Description Data Jessica rce(s) Supporting Document(s) 2.3 1.8-2.4 MAGNESIUM LEVEL eCW1 ([facility]) ID Date Data Source VITAMIN D 25-HYDROXY 09/24/2020 12:00:00 AM EDT eCW1 ([facility]) Name Value Range Interpretation Code Description Data Jessica rce(s) Supporting Document(s) 21.1 30.0-100.0 TOTAL 25(OH) VITAMIN D eC W1 ([facility]) ID Date Data Source [id number] 09/24/2020 12:00:00 AM EDT eCW1 ([facility]) Name Value Range Interpretation Code Description Data Jessica rce(s) Supporting Document(s) Hemoglobin A1c/Hemoglobin.total in Blood 6.3 HEMOGLOBIN A1c eCW1 ([facility]) ID Date Data Source FREE T4 & TSH PANEL 09/24/2020 12:00:00 AM EDT eCW1 ([facility]) Name Value Range Interpretation Code Description Data Jessica rce(s) Supporting Document(s) 2.970 0.358-3.740 THYROID STIMULATING HORM ONE eCW1 ([facility]) 1.22 0.76-1.46 FREE T4 eCW1 ([facility]) ID Date Data Source Comprehensive Metabolic Profile (CMP) 09/24/2020 12:00:00 AM EDT eCW1 ([facility]) Name Value Range Interpretation Code Description Data Jessica rce(s) Supporting Document(s) 110 70-100 GLUCOSE, FASTING eCW1 ([facility]) 33 7-18 BLOOD UREA NITROGEN eCW1 ([facility]) 0.90 0.55-1.30 CREATININE FOR GFR eCW1 ([facility]) > 60.0 >32 GLOMERULAR FILTRATION RATE eCW 1 ([facility]) 141 136-145 SODIUM LEVEL eCW1 ([facility]) 5.0 3.5-5.1 POTASSIUM SERUM eCW1 ([facility]) 33 21-32 CARBON DIOXIDE LEVEL eCW1 ([facility]) 105 98-107 CHLORIDE LEVEL eCW1 ([facility]) 9.4 8.8-10.2 CALCIUM LEVEL eCW1 ([facility]) 103 45-117 ALKALINE PHOSPHATASE eCW1 ([facility]) 22 12-78 ALT/SGPT eCW1 ([facility]) 14 7-37 AST/SGOT eCW1 ([facility]) 0.3 0.2-1.0 BILIRUBIN,TOTAL eCW1 ([facility]) 6.9 6.4-8.2 TOTAL PROTEIN eCW1 ([facility]) 3.5 3.2-5.2 ALBUMIN eCW1 ([facility]) 1.0 1.2-2.2 ALBUMIN/GLOBULIN RATIO eCW1 ([facility]) Procedure Social History Code Duration Value Status Description Data Source(s ) Smoking 02/04/2021 12:00:00 AM EDT Never Smoker completed Never S moker eCW1 ([facility]) Smoking 01/07/2021 12:00:00 AM EDT Never Smoker completed Never S moker eCW1 ([facility]) Smoking 01/07/2021 12:00:00 AM EDT Never Smoker completed Never S moker eCW1 ([facility]) Alcohol intake 09/30/2020 12:00:00 AM EDT Not Currently completed [facility] Smoking 09/30/2020 12:00:00 AM EDT Never smoker completed Never s moker [facility] Smoking 09/24/2020 12:00:00 AM EDT Never Smoker completed Never S moker eCW1 ([facility]) Smoking 09/24/2020 12:00:00 AM EDT Never Smoker completed Never S moker eCW1 ([facility]) Smoking 05/21/2020 12:00:00 AM EST Never Smoker completed Never S moker eCW1 ([facility]) Smoking 05/21/2020 12:00:00 AM EST Never Smoker completed Never S moker eCW1 ([facility]) Smoking 05/21/2020 12:00:00 AM EST Never Smoker completed Never S moker eCW1 ([facility]) Smoking 05/21/2020 12:00:00 AM EST Never Smoker completed Never S moker eCW1 ([facility]) Vital Signs ID Date Data Source UNK Name Value Range Interpretation Code Description Data Source(s) Diastolic blood pressure 70 mm[Hg] 70 mm[Hg] eCW1 ([facility]) Body weight 203 [lb_av] 203 [lb_av] eCW1 ([facility]) Body height 63 [in_i] 63 [in_i] eCW1 ([facility]) Body mass index (BMI) [Ratio] 35.96 kg/m2 35.96 kg/m2 eCW1 ([facility]) Heart rate 76 /min 76 /min eCW[facility] Respiratory rate 20 /min 20 /min eCW1 ([facility]) Body temperature 97 [degF] 97 [degF] eCW1 ([facility]) Systolic blood pressure 124 mm[Hg] 124 mm[Hg] e CW1 ([facility]) Systolic blood pressure 118 mm[Hg] 118 mm[Hg] [facility] Diastolic blood pressure 70 mm[Hg] 70 mm[Hg] [facility] Heart rate 62 /min 62 /min [facility] Body height 160 cm 160 cm [facility] Body weight 90.719 kg 90.719 kg [facility] Body mass index (BMI) [Ratio] 35.43 kg/m2 35.43 kg/m2 [facility] Oxygen saturation in Arterial blood by Pulse oximetry 97 % 97 % [facility] Body weight 206 [lb_av] 206 [lb_av] eCW1 ([facility]) Body height [in_i] eCW1 ([facility]) Body mass index (BMI) [Ratio] 36.49 kg/m2 36.49 kg/m2 eCW1 ([facility]) Heart rate 80 /min 80 /min eCW1 ([facility]) Respiratory rate 20 /min 20 /min eCW1 ([facility]) Body temperature 97.1 [degF] 97.1 [degF] eCW1 ( [facility]) Systolic blood pressure 130 mm[Hg] 130 mm[Hg] e CW1 ([facility]) Diastolic blood pressure 84 mm[Hg] 84 mm[Hg] eCW1 ([facility]) Body weight 200 [lb_av] 200 [lb_av] eCW1 ([facility]) Body height 63 [in_i] 63 [in_i] eCW1 ([facility]) Body mass index (BMI) [Ratio] 35.42 kg/m2 35.42 kg/m2 eCW1 ([facility]) Heart rate 76 /min 76 /min eCW1 ([facility]) Respiratory rate 20 /min 20 /min eCW1 ([facility]) Body temperature 97.6 [degF] 97.6 [degF] eCW1 ( [facility]) Systolic blood pressure 110 mm[Hg] 110 mm[Hg] e CW1 ([facility]) Diastolic blood pressure 80 mm[Hg] 80 mm[Hg] eCW1 ([facility]) Systolic blood pressure 110 mm[Hg] 110 mm[Hg] M EDENT ([facility], ) Diastolic blood pressure 70 mm[Hg] 70 mm[Hg] MEDENT ([facility], ) Heart rate 76 /min 76 /min MEDENT ([facility]) Respiratory rate 20 /min 20 /min MEDENT ( [facility] ) Patient Treatment Plan of Care Planned Activity Planned Date Details Description Data Source (s) Fluconazole 150 MG Oral Tablet 01/07/2021 12:00:00 AM EDT eCW1 ([facility]) Fluconazole 150 MG Oral Tablet 01/07/2021 12:00:00 AM EDT eCW1 ([facility]) Levothyroxine Sodium 0.112 MG Oral Tablet 09/01/2020 12:00:00 AM ED T [facility] Cholecalciferol 1000 UNT Oral Capsule 05/21/2020 12:00:00 AM EST eCW1 ([facility]) Cholecalciferol 1000 UNT Oral Capsule 05/21/2020 12:00:00 AM EST eCW1 ([facility]) Cholecalciferol 1000 UNT Oral Capsule 05/21/2020 12:00:00 AM EST eCW1 ([facility]) Cholecalciferol 1000 UNT Oral Capsule 05/21/2020 12:00:00 AM EST eCW1 ([facility])
[2021-03-31] MEDS ORDERED: FURO40TA2 PO (19:59)
[2021-03-31] MEDS ORDERED: PRAM0.754 PO (19:59)
[2021-03-31] MEDS ORDERED: VITMTA PO (19:59)
[2021-03-31] MEDS ORDERED: LEVO112T2 PO (19:59)
[2021-03-31] MEDS ORDERED: HOME MED LIST COMPLETE! XX SCH (20:00)
[2021-03-31] MEDS: SINEMET 25-100 MG TAB PO SCH (21:00)
[2021-03-31] MEDS: APIXABAN 5 MG TAB (ELIQUIS) PO SCH (21:00)
[2021-03-31] MEDS: BISOPROLOL FUM 2.5 MG PER 1/2TAB PO SCH (21:00)
[2021-03-31] MEDS: PRAMIPEXOLE 0.25 MG TAB PO SCH (21:00)
[2021-03-31] MEDS ORDERED: NYSTATIN CREAM 15 GM TOP PRN (22:00)
[2021-03-31] MEDS ORDERED: NS 0.45% 1,000 ML IV ONE (22:00)
--- NOTE | 2021-03-31 22:14 | HPEPDOC ---
[facility] Medical History & Physical Date of Admission Mar 31, 2021 Date of Service: Mar 31, 2021 Primary Care Physician: LOLA BILLINGS NP Other Provider Dr. Baez, neurology; Dr. Guerrero, cardiology Attending Physician: TIAGO MASSEY MD History and Physical CHIEF COMPLAINT: AMS HISTORY OF PRESENT ILLNESS: is an 85yo female w/ notable PMHx of Parkinson Disease w/ dementia, pAfib and prior b/l PE (12/2016) on eliquis, hypothyroidism, htn, KACIE not on CPAP, MGUS, who presented to the [facility] ED on 03/31/21 via EMS primarily for altered mental status. Upon admission evaluation, the patient is alert and oriented to self only. She is accompanied by her daughter Darcy. Per patient's daughter (who gained this knowledge from the patient's ), the patient has been lethargic for the past 2-3 days and sleeping more, less receptive today to care from the home health aide, and has also had decreased appetite for the past day. In addition, she has had a right-sided facial droop for the past "few months" that has been progressing. Per documentation from ED intake, the patient began slurring her speech on Monday (03/29). The patient has had instability issues over the past few weeks with a couple of falls as well as sloughing out of her chair to the ground at times. The patient lives with her and is at this point entirely reliant on him and/or the home health aide for virtually all activities of daily living. Patient also has urinary incontinence with increased urinary frequency of late. The the only recent medication change patient has had was she completed a 30-day course of fluconazole 2 weeks ago per the patient's daughter. Upon presentation to the ED, head CT showed no acute intracranial hemorrhage, mass-effect, midline shift, and did show mild chronic atrophy. A 1 view chest x-ray showed no acute cardiopulmonary process. Urinalysis showed positive nitrite with 3+ leukocyte esterase and no urine bacteria; urine culture is pending. Patient was afebrile, bradycardic with heart rates ranging from 5664, hypertensive at 169/74. She had no white count and was not anemic. She did have some metabolic alkalosis with a CO2 of 35, and elevated creatinine representing a possible borderline CASSIA (creatinine 1.29 with baseline of 0.91). REVIEW OF SYSTEMS: Due to patient's orientation to self only, a complete 10 point review of systems could not be executed. With the assistance of the patient's daughter, no recent fevers, chills, night sweats, unintentional change in weight, chest pain, cavitations, dyspnea, cough, abdominal pain/nausea/vomiting/diarrhea/blood in the stool, dysuria or hematuria was reported. All other pertinent positives from review are listed in HPI. PAST MEDICAL/ SURGICAL HISTORY: Bilateral pulmonary emboli, December 2016 (on Eliquis 2.5 twice daily) Paroxysmal atrial fibrillation, on Eliquis (follows with Dr. Guerrero of cardiology as outpatient) Hypertension Hypothyroidism Parkinson's disease with associated dementia (follows with Dr. Baez of neurology as outpatient) Monoclonal gammopathy of uncertain significance (MGUS), does not currently follow with hematology Obstructive sleep apnea (confirmed with patient's daughter that this has been diagnosed but she does not use CPAP) Mixed hyperlipidemia Vertigo Osteoarthritis with degenerative disc disease/lumbar stenosis/lumbar spondylolisthesis Right foot toeing out s/p 2012 laminectomy and spinal fusion surgery L4/5 laminectomy and interspinous fusion, December 2012 Bilateral cataract surgery, 2013 (with Dr. Estrada) Left total knee arthroplasty, May 2014 (performed by Dr. Caruso) Varicose vein stripping Right breast biopsy in April 2004 that was benign Multiple colonoscopies (April 2004, June 2006, April 2010, August 2012) all done by Dr. Eisenberg with history of prior adenomatous polyp removal SOCIAL HISTORY: Patient is and lives with her Koffi. She also has a home health aide that comes 2-3 days/week; she is effectively at this point entirely reliant on either her or the health aide for all activities of daily living. Patient is a never smoker. Patient used to have casual alcohol use in social situations when she was younger but it has been "many years" since she has had any alcohol. Patient does not have any current or former illegal or IV drug use history. FAMILY HISTORY: Father: in his 50s; emphysema, alcoholism Mother: at age 56; colon cancer 2 sisters: Both ; both had CAD, and one sister also had CHF and hypertension 2 brothers: Both ; COPD, CHF ALLERGIES: Please see below. HOME MEDICATIONS: Please see below. PHYSICAL EXAMINATION: VITAL SIGNS: Temperature 97.7, pulse 5664, respiratory rate 20, blood pressure 169/74, pulse oximetry 98% on room air. GENERAL APPEARANCE: Elderly female lying on her right side in hospital bed. She is alert and oriented to self only. She does not appear to be in any acute distress. Accompanied by her daughter. HEENT: Normocephalic, atraumatic. Noninjected, anicteric sclera PERRLA. No significant conjunctival pallor appreciated. Oral cavity: Could not assess as patient is not following commands to open her mouth. Neck: No lymphadenopathy appreciated. Wide. CARDIOVASCULAR: Distant heart sounds. Bradycardic rate, regular rhythm. Normal S1, S2. No significant murmurs or rubs were appreciated but again this is in the context of quite distant heart sounds. LUNGS: Due to patient's altered status full tidal volume auscultation was not possible. From the diminished breath sounds we could appreciate, no adventitious breath sounds were heard. Breathing room air. Symmetric chest expansion. ABDOMEN: Soft, obese. Guarding and tenderness difficult to appreciate with patient's altered status. No significant distention or rigidity appreciated. Hypoactive bowel sounds throughout. Difficult to assess for hepatosplenomegaly or palpable masses secondary to habitus. MUSCULOSKELETAL: Could not assess muscle strength due to patient's inability to follow commands. EXTREMITIES: There are chronic venous stasis changes bilaterally of lower extremities, left greater than right. There is bilateral lower extremity swelling but no significant pitting edema is appreciated. 2+ radial and dorsalis pedis pulses bilaterally. The right foot bows out laterally. Bilateral onychomycosis. NEUROLOGICAL: Patient is awake and oriented to self only. She does not respond appropriate to questions nor follow commands. When her name is called she makes eye contact but does not sustain it. There is bilateral subtle resting hand tremors. There is some slight rigidity appreciated with movement of upper extremities bilaterally. There is right facial droop. Unable to assess cranial nerves accurately due to patient's inability to answer questions/follow karly hernandez. LABORATORY DATA: Please see below. IMAGING: Portable chest x-ray, 03/31/2021FINDINGS: The cardiac silhouette is stable. Hiatal hernia noted. The lung hermosillo demonstrate chronic stable changes without acute consolidation, effusion, or pneumothorax. Skeletal structures are intact. IMPRESSION: No acute cardiopulmonary process appreciated. Head CT without contrast, 03/31/2021 FINDINGS: There is mild atrophy. There is no midline shift or mass effect. Decker-white differentiation is well maintained. There is no acute intracranial hemorrhage or extra-axial fluid collection. Bone window examination is unremarkable. The visualized mastoid air cells and paranasal sinuses are clear. Vascular calcifications are seen in the carotid siphons. IMPRESSION: Mild chronic atrophy. No acute intracranial hemorrhage, midline shift or mass effect. MICROBIOLOGY: Please see below. ASSESSMENT & PLAN: This is an 85yo female w/ notable h/o PD w/ dementia, b/l pe (12/2016) and pAfib on eliquis, hypothyroidism, htn, KACIE not on cpap, and MGUS who presented to the ED via EMS on 03/31/21 due to AMS from baseline (more lethargic, less receptive to home care, decreased appetite). She has also had worsening rt facial droop over the past [address] w/o showed no acute ICH/mass/midline shift, CXR had no acute C-P process. UA was abNL (nitrite +, 3+ LE, no uBac) w/ pend Cx and MP showed metab alkalosis (CO2 35). Pt was primarily admitted for progressive AMS from baseline, possibly secondary to CVA vs UTI complicated by dementia 2/2 PD. #Altered mental status from baseline -possibly 2/2 CVA vs UTI and complicated by known dementia 2/2 Parkinson's Dz -Patient has been more lethargic, less receptive to care, and had a decreased appetite over the past few days. She has had a progressively worsening right facial droop for the past few months. Per EMS report, patient has been slurring speech recently -Head CT essentially negative for any acute process, mass-effect, or midline shift; there was a mild chronic atrophy present -Chest x-ray showed no acute cardiopulmonary process -Physical exam was significantly limited due to patient only being oriented to self. She does have visible right facial droop. -Brain MRI and MRA have been ordered as well as a carotid bilateral ultrasound -EKG in the ED showed bradycardia with regular rhythm and left axis deviation -Abnormal UA (discussed below) could represent urinary tract infection that may be affecting mentation -No leukocytosis, afebrile, -Aspiration precautions; fall risk precautions; every 4 neurochecks; swallow eval #Abnormal UA -Initial UA in the ED: Nitrite positive, 3+ leukocyte esterase, no urine bacteria -Urine culture is pending -In the setting of AMS from baseline, one-time IV ceftriaxone dose administered -IVF #Metabolic alkalosis -Initial metabolic panel showed a CO2 level of 35 -Follow-up metabolic panel ordered for the morning #KACIE not on home CPAP -Patient was saturating in the low 90s on room air. She does not use oxygen at home, and per patient's daughter, she has been intolerant of CPAP mask -Oxygen titration and continuous pulse ox orders have been placed; potential he may need oxygen during the overnight #Chronic kidney disease stage IIIa/IIIb -Initial calculated GFR was 41.8% #Parkinson's disease with associated dementia -Patient's home carbidopa levodopa and pramipexole continued #Paroxysmal atrial fibrillation and history of bilateral PE, on Eliquis -EKG in the ED: Regular rhythm with bradycardia and left axis deviation -Initial lytes WNL -Home Eliquis continued -Telemetry #Bradycardia -Heart rate on EKG was 55; upon admission examination was 5664 -On telemetry #Hypertension -Patient's home bisoprolol continued -She is on telemetry and at time of admission evaluation BP was 140/65 -2 g sodium diet #Hypothyroidism -Home levothyroxine (112 mcg daily) medication continued -TSH & Free T4 added onto initial labs #Deconditioning and social concerns -The patient lives with her soon-to-be 85-year-old who has medical issues of his own and has been needing to help patient with all activities of daily living. She does get 2-3 days/week assistance from home health but she has had worsening ambulatory status and reported recent falls. -On discussion with the patient's daughter, the daughter would be open to discussing possible placement, although the daughter reports the patient's is pretty vehement about caring for her at home -Day team can assess the needs for patient's deconditioning and possible placement evaluation -The contact number for the patient's daughter (Darcy) is listed below. Patient's is Koffi (home number [phone]) #Class 2 obesity complicates care #DVT prophylaxis: Home Eliquis was continued CODE STATUS: DNR/DNI. The patient's daughter Darcy ([phone]) reports to be the patient's will executor and that patient has completed a MOLST form depicting DNR/DNI status. Darcy will work to bring this MOLST form in as soon as possible. Disposition: home after at least 2 midnight's stay Laboratory Data Labs 24H Laboratory Tests 2 03/31/21 13:29: Immature Granulocyte % (Auto) 0.2, Neutrophils (%) (Auto) 68.6H, Lymphocytes (%) (Auto) 19.2L, Monocytes (%) (Auto) 9.7H, Eosinophils (%) (Auto) 1.9, Basophils (%) (Auto) 0.4, Neutrophils # (Auto) 3.3, Lymphocytes # (Auto) 0.9L, Monocytes # (Auto) 0.5, Eosinophils # (Auto) 0.1, Basophils # (Auto) 0.0, Nucleated Red Blood Cells % (auto) 0.0, Coronavirus (COVID-19)(PCR) NEGATIVE, Influenza Type A (RT-PCR) NEGATIVE, Influenza Type B (RT-PCR) NEGATIVE, Respiratory Syncytial Virus (PCR) NEGATIVE 03/31/21 14:24: Urine Color YELLOW, Urine Appearance HAZY, Urine pH 6.0, Urine Specific [place] 1.008, Urine Protein NEGATIVE, Urine Glucose (UA) NEGATIVE, Urine Ketones NEGATIVE, Urine Blood NEGATIVE, Urine Nitrite POSITIVEH, Urine Bilirubin NEGATIVE, Urine Urobilinogen 0.2, Urine Leukocyte Esterase 3+H, Urine WBC (Auto) 19H, Urine RBC (Auto) 1, Urine Hyaline Casts (Auto) 14, Urine Bacteria (Auto) NEGATIVE, Urine Squamous Epithelial Cells 0, Urine Amorphous Sediment SMALLH, Urine Sperm (Auto) 03/31/21 15:25: Anion Gap 3L, Glomerular Filtration Rate 41.8, Calcium Level 9.3, Total Creatine Kinase 26, Creatine Kinase MB 1.8, Creatine Kinase MB Relative Index 6.92H, Troponin I < 0.02 CBC/BMP Laboratory Tests 03/31/21 13:29 03/31/21 15:25 Microbiology Microbiology 03/31/21 Urine Culture, Received Pending Home Medications Scheduled Apixaban (Eliquis) 5 Mg Tab, 5 MG PO BID Bisoprolol Fumarate (Bisoprolol Fumarate) 5 Mg Tab, 2.5 MG PO QHS Carbidopa/Levodopa (Sinemet 25-100 mg Tablet) 1 Tab Tab, 1 TAB PO QID Furosemide (Furosemide) 40 Mg Tablet, 40 MG PO BID Levothyroxine Sodium (Levothyroxine Sodium) 112 Mcg Tablet, 112 MCG PO DAILY Multivitamins (Thera M Plus Tablet) 1 Each Tablet, 1 TAB PO DAILY TAKES AT NOON Potassium Chloride (Potassium Chloride) 10 Meq Tab, 20 MEQ PO BID Pramipexole Di-HCl (Pramipexole Dihydrochloride) 0.75 Mg Tablet, 0.75 MG PO BID Scheduled PRN Nystatin (Nystatin) 100,000 Unit/Gm Cre, 1 APPLIC TOP BID PRN for RASH APPLIES TO UNDER BREASTS AND GROIN Allergies Coded Allergies: No Known Allergies (Unverified , 02/04/21) Attending Note Attending Note TIME OF SERVICE 826PM MS. Lopez is an 85 yr old admitted for metabolic encephalopathy likely 2/2 UTI vs TIA. She also has metabolic alkalosis likely 2/2 Lasix and 1st degree AV block i/s/o BB use and class [address]Schwarzs Bedolla&P VERNON GILLESPIE D.O. Mar 31, 2021 22:14 TIAGO MASSEY MD Mar 31, 2021 22:38
[2021-03-31] MEDS ORDERED: cefTRIAXone SOD 1 GM in D5W MINI-BAG PLUS 50 ML IV ONE (23:00)
[2021-04-01 00:57] LABS: FREE T4 1.34 NG/DL (0.76-1.46)
--- NOTE | 2021-04-01 01:39 | REPVR ---
PROCEDURE INFORMATION: Exam: MR Head Without Contrast Exam date and time: 03/31/2021 12:21 AM Age: 85 years old Clinical indication: Altered mental status/memory loss; Additional info: AMS w/ RT facial droop TECHNIQUE: Imaging protocol: MR of the head without contrast. COMPARISON: CT Head without contrast 03/31/2021 1:06 PM FINDINGS: Limitations: Motion artifact significantly limits this study. Brain: No restricted diffusion within the brain to suggest an acute infarct. There are scattered foci of FLAIR hyperintensity within the cerebral white matter. There is no mass effect or restricted diffusion associated with these foci. In a patient this age, this likely represents chronic small vessel ischemic disease. There is mild to moderate prominence of sulci, compatible with atrophy. No significant cerebral edema. Magnetic susceptibility is identified inferior to the frontal lobes, which can be contributed by volume averaging with the sphenoid sinus as well as artifact. This is of indeterminate clinical significance. Cerebral ventricles: Mild age-appropriate prominence of the ventricles. Pituitary gland and sella: Evaluation of the pituitary gland is limited by slice acquisition. Bones/joints: Hyperostosis frontalis interna. Paranasal sinuses: Mucosal thickening of ethmoid air cells bilaterally. Minimal mucosal thickening of the maxillary sinuses. Mastoid air cells: No mastoid effusion. Orbital cavity: Bilateral orbital lens implants. Motion artifact limits evaluation of the optic globes. Soft tissues: Unremarkable, as visualized. IMPRESSION: 1. No acute infarct. 2. Mild white matter disease, likely representing chronic small vessel ischemic disease. 3. Mild to moderate atrophy. 4. Paranasal sinus disease. 5. Additional findings described above. Electronically signed by: Ian Cali On 04/01/2021 01:38:50 AM
--- NOTE | 2021-04-01 01:53 | REPVR ---
PROCEDURE INFORMATION: Exam: MRA Head Without Contrast; Arteriography Exam date and time: 03/31/2021 12:21 AM Age: 85 years old Clinical indication: Other: Ams/ right facial droop; Additional info: AMS w/ RT facial droop TECHNIQUE: Imaging protocol: Magnetic resonance angiography head without contrast. Exam focused on the arteries. COMPARISON: CT Head without contrast 03/31/2021 1:06 PM FINDINGS: ANTERIOR CIRCULATION: Right internal carotid artery: Artifact limits evaluation of the right internal carotid artery. No occlusion. Right middle cerebral artery: No significant stenosis or occlusion of the M1 segment of the right middle cerebral artery. Suboptimal evaluation of M2 and M3 segments due to artifact. Flow-limiting pathology cannot be excluded. Right anterior cerebral artery: Severe hypoplasia or aphasia of the A1 segment right anterior cerebral artery. At the level of the proximal A2 segment of the right anterior cerebral arteries, there is a small vascular bulge or aneurysm measuring 2-3 mm in diameter. Left internal carotid artery: Artifact limits evaluation of the left internal carotid artery. No occlusion. Left middle cerebral artery: No significant stenosis or occlusion of the M1 segment of the left middle cerebral artery. Suboptimal evaluation of M2 and M3 segments due to artifact. Flow-limiting pathology cannot be excluded. Left anterior cerebral artery: Suboptimal evaluation of the left anterior cerebral artery. No complete occlusion. POSTERIOR CIRCULATION: Right vertebral artery: There is nonvisualization of flow within the distal V3 and proximal V4 segments of the right vertebral artery, concerning for occlusion. Artifact can contribute to this finding. Severe hypoplasia and decreased flow of the right vertebral artery distally. Left vertebral artery: A dominant left vertebral artery is visualized. Artifact limits evaluation of the proximal V4 segment. No occlusion. Basilar artery: Artifact limits evaluation of the basilar artery, without occlusion. Right posterior cerebral artery: Flow is poorly visualized within the distal bilateral posterior cerebral arteries, which can be due to the limitations of the study, although arterial occlusion cannot be excluded. Left posterior cerebral artery: See above. IMPRESSION: 1. There is nonvisualization of flow within the distal V3 and proximal V4 segments of the right vertebral artery, concerning for occlusion. Artifact can contribute to this finding. Severe hypoplasia and decreased flow of the right vertebral artery distally. 2. At the level of the proximal A2 segment of the right anterior cerebral arteries, there is a small vascular bulge or aneurysm measuring 2-3 mm in diameter. 3. No significant stenosis or occlusion of the M1 segments of the bilateral middle cerebral artery. Suboptimal evaluation of bilateral M2 and M3 segments due to artifact. Flow-limiting pathology cannot be excluded. 4. Flow is poorly visualized within the distal bilateral posterior cerebral arteries, which can be due to the limitations of the study, although arterial occlusion cannot be excluded. 5. Additional findings described above. 6. Correlation with CTA recommended, as clinically indicated. Electronically signed by: Ian Cali On 04/01/2021 01:52:44 AM
[2021-04-01] MEDS: LEVOTHYROXINE 112MCG TABLET (0.112MG) PO SCH (05:07)
[2021-04-01 06:50] VITALS: BP 146/88
[2021-04-01 07:05] LABS: BASO % 0.2 % (0.0-1.0); EOS # 0.1 10^3/uL (0.0-0.5); EOS % 1.1 % (0.0-3.0); HEMATOCRIT 39.3 % (36.0-47.0); HEMOGLOBIN 12.2 g/dl (12.0-15.5); LYMPH % 21.3 % (24.0-44.0); MEAN CORPUSCULAR HEMOGLOBIN 30.6 pg (27.0-33.0); MEAN CORPUSCULAR VOLUME 98.5 fl (80.0-96.0); MONO # 0.5 10^3/uL (0.0-0.8); MONO % 10.1 % (2.0-8.0); NEUTROPHILS # 3.2 10^3/uL (1.5-8.5); NEUTROPHILS % 67.1 % (36.0-66.0); PLATELET COUNT, AUTOMATED 144 10^3/uL (150-450); RED BLOOD COUNT 3.99 10^6/uL (4.00-5.40); WHITE BLOOD COUNT 4.7 10^3/uL (4.0-10.0)
[2021-04-01 07:38] LABS: ALBUMIN 2.9 GM/DL (3.2-5.2); BILIRUBIN,TOTAL 0.4 MG/DL (0.2-1.0); CALCIUM LEVEL 8.7 MG/DL (8.8-10.2); GLOMERULAR FILTRATION RATE 56.1 (>32); MAGNESIUM LEVEL 2.8 MG/DL (1.8-2.4); POTASSIUM SERUM 4.3 MEQ/L (3.5-5.1); TOTAL PROTEIN 6.3 GM/DL (6.4-8.2)
--- NOTE | 2021-04-01 07:38 | ECGEPIP ---
[facility] - ED Test Date: 2021-03-31 Pat Name: ELLEN CURIEL Department: Room: - Gender: Female Development Administrator: MIYA : [id number] Requested By: MAI SNYDER Order Number: [id number] Reading MD: Navid Kelly Measurements Intervals [place] Rate: 55 P: [place]: QRS: -22 QRSD: 88 T: 3 QT: 442 QTc: 422 Interpretive Statements Sinus rhythm POOR R WAVE PROGRESSION INCOMPLETE RIGHT BUNDLE BRANCH BLOCK SIMILAR TO 01/31/18 Electronically Signed on 04-01-2021 7:37:43 EDT by Navid Kelly
[2021-04-01] MEDS: SINEMET 25-100 MG TAB PO SCH ×4 (10:24→19:58)
[2021-04-01] MEDS: APIXABAN 5 MG TAB (ELIQUIS) PO SCH ×2 (10:24→19:58)
[2021-04-01] MEDS: PRAMIPEXOLE 0.25 MG TAB PO SCH ×2 (10:24→19:58)
[2021-04-01] MEDS: MULTIVITAMINS/MINERALS THERAP 1 TAB PO SCH (10:24)
[2021-04-01 14:00] VITALS: BP 138/72
--- NOTE | 2021-04-01 14:24 | IPNPDOC ---
Subjective Date Seen The patient was seen on 04/01/21. Subjective Chief Complaint/HPI Patient was seen and examined at bedside. She is awake, alert, and oriented x 2 (to self and year). Her speech is slow, and instructions need to be repeated to her for her to follow commands. She denied headaches, blurry vision, chest pain, abdominal pain, nausea, vomiting, pain with urination and bowel movements. Objective Physical Examination Other physical findings General: Lying in bed, no acute distress Head/Neck/Throat: Trachea midline, mucous membranes moist Eyes: Sclera anicteric, no erythema or discharge appreciated bilaterally Thorax: Normal respiratory effort on room air, lungs clear to auscultation bilaterally, no wheezes/rales/rhonchi Cardiovascular: Normal rate, regular rhythm, normal S1, S2; no S3, S4, rubs/gallops/murmurs Abdomen: Bowel sounds present, soft/nontender/nondistended Genitourinary: No CVA tenderness, no Myers in place Musculoskeletal: Moving all extremities, no edema Skin: Warm, dry Neurologic: Awake, alert, oriented x2 (to self and year). She is able to follow commands but these have to be reiterated. She is able to lift her legs off the examination bed as well as move her arms. She favors leaning to its right side. A right facial droop was appreciated. Unable to assess cerebellar exam due to her not being able to follow commands. Assessment /Plan Assessment #Metabolic encephalopathy -Secondary to urinary tract infection. #Urinary tract infection -Continue with ceftriaxone until cultures have resulted. #Parkinson's disease with dementia. -There is concerns that patient had a stroke due to her change in mental status, facial droop, and garbled speech chills appreciated on admission. However, after speaking to the patient's daughter (Darcy) she reports that this year, and findings for the last few months. There is times on exam her facial droop is not present, and this is likely due to the fact she does not have her bottom plate/dentures in place. There was no focal weakness that was appreciated on today's exam. Daughter reports she sundown's, and has been having garbled speech when this happens; this is not a new finding. Family overall has noticed worsening of her dementia and Parkinson's disease. Darcy reported patient has to be told several times before she is able to execute action. -MRI did not show any acute stroke. MRA showed narrowing of 2 vessels of the vertebral artery. These findings were discussed with on-call neurologist and there is no acute intervention required at this time. -She is known to Dr. Guillermo's practice, and it was recommended to continue with [facility] Parkinson medications. #CKD -Creatinine is at baseline. Avoid nephrotoxic medications. #Obstructive sleep apnea not on home CPAP -Continue to monitor respiratory status, saturating well on room air. Further assessment for CPAP can be done as outpatient. #Paroxysmal atrial fibrillation -Rate is controlled with bisoprolol; she is on Eliquis for systemic anticoagulation #History of PE -Continue with Eliquis. #Hypertension -Blood pressure acceptable. Continue with bisoprolol. #Hypothyroidism -Continue ambulatory levothyroxine. #Deconditioning and social concerns -Concerns that family may be having difficulty with handling the needs of the patient. Therefore PFS will be consulted #DVT prophylaxis -Offered by [facility] CODE STATUS: DNR/DNI. The patient's daughter Darcy ([phone]) reports to be the patient's will executor and that patient has completed a MOLST form depict ing DNR/DNI status. Darcy will work to bring this MOLST form in as soon as possible. Plan/VTE VTE Prophylaxis Ordered?: Yes VS, I&O, 24H, Fishbone Vital Signs/I&O Vital Signs Date Time Temp Pulse Resp B/P (MAP) Pulse Ox O2 Delivery O2 Flow Rate FiO2 04/01/21 06:50 96.0 73 18 146/88 (107) 93 03/31/21 22:15 Nasal Cannula 3.0 I&O- Last 24 Hours up to 6 AM 04/01/21 06:00 Intake Total 50 ml Output Total 300 ml Balance -250 ml Laboratory Data 24H LABS Laboratory Tests 2 03/31/21 14:24: Urine Color YELLOW, Urine Appearance HAZY, Urine pH 6.0, Urine Specific Sanders 1.008, Urine Protein NEGATIVE, Urine Glucose (UA) NEGATIVE, Urine Ketones NEGATIVE, Urine Blood NEGATIVE, Urine Nitrite POSITIVEH, Urine Bilirubin NEGATIVE, Urine Urobilinogen 0.2, Urine Leukocyte Esterase 3+H, Urine WBC (Auto) 19H, Urine RBC (Auto) 1, Urine Hyaline Casts (Auto) 14, Urine Bacteria (Auto) NEGATIVE, Urine Squamous Epithelial Cells 0, Urine Amorphous Sediment SMALLH, Urine Sperm (Auto) , Urine Random Chloride 178 03/31/21 15:25: Anion Gap 3L, Glomerular Filtration Rate 41.8, Calcium Level 9.3, Total Creatine Kinase 26, Creatine Kinase MB 1.8, Creatine Kinase MB Relative Index 6.92H, Tr oponin I < 0.02, Thyroid Stimulating Hormone (TSH) 2.670, Free Thyroxine 1.34 04/01/21 06:38: Anion Gap 2L, Glomerular Filtration Rate 56.1, Calcium Level 8.7L, Immature Granulocyte % (Auto) 0.2, Neutrophils (%) (Auto) 67.1H, Lymphocytes (%) (Auto) 21.3L, Monocytes (%) (Auto) 10.1H, Eosinophils (%) (Auto) 1.1, Basophils (%) (Auto) 0.2, Neutrophils # (Auto) 3.2, Lymphocytes # (Auto) 1.0L, Monocytes # (Auto) 0.5, Eosinophils # (Auto) 0.1, Basophils # (Auto) 0.0, Nucleated Red Blood Cells % (auto) 0.0, Magnesium Level 2.8H, Total Bilirubin 0.4, Aspartate Amino Transf (AST/SGOT) 16, Alanine Aminotransferase (ALT/SGPT) 22, Alkaline Phosphatase 93, Total Protein 6.3L, Albumin 2.9L, Albumin/Globulin Ratio 0.9L CBC/BMP Laboratory Tests 03/31/21 15:25 04/01/21 06:38 Microbiology Microbiology 03/31/21 Urine Culture, Received Pending MERY DODSON M.D. Apr 01, 2021 14:24
--- NOTE | 2021-04-01 15:56 | REP ---
INDICATION: Assess stenosis TECHNIQUE: Carotid ultrasonography was performed bilaterally FINDINGS: Right: CCA systolic: 63.7 centimeters/second CCA diastolic: 11.6 centimeters/second ICA systolic: 39.1 centimeters/second ICA diastolic: 5.2 centimeters/second ICA CCA ratio: 0.61 Left: CCA systolic: 64.4 centimeters/second CCA diastolic: 12.1 centimeters/second ICA systolic: 45.7 centimeters/second ICA diastolic: 7.5 centimeters/second ICA CCA ratio: 0.71 Vertebral artery: Right: Not identified left: Antegrade flow Minimal plaque is seen bilaterally. IMPRESSION: According to the SRU criteria there is less than 50% stenosis of the internal carotid artery bilaterally. <Electronically signed by Venkata Darling > 04/01/21 1133
[2021-04-01] MEDS ORDERED: cefTRIAXone SOD 1 GM in D5W MINI-BAG PLUS 50 ML IV SCH (16:00)
[2021-04-01] MEDS: BISOPROLOL FUM 2.5 MG PER 1/2TAB PO SCH (19:59)
[2021-04-01 22:00] VITALS: BP 114/61
[2021-04-02] MEDS: LEVOTHYROXINE 112MCG TABLET (0.112MG) PO SCH (04:51)
[2021-04-02 06:00] VITALS: BP 132/77
[2021-04-02 06:31] LABS: HEMATOCRIT 38.7 % (36.0-47.0); HEMOGLOBIN 12.1 g/dl (12.0-15.5); MEAN CORPUSCULAR HEMOGLOBIN 30.8 pg (27.0-33.0); MEAN CORPUSCULAR HGB CONC 31.3 g/dl (32.0-36.5); MEAN CORPUSCULAR VOLUME 98.5 fl (80.0-96.0); PLATELET COUNT, AUTOMATED 145 10^3/uL (150-450); RED BLOOD COUNT 3.93 10^6/uL (4.00-5.40); WHITE BLOOD COUNT 4.3 10^3/uL (4.0-10.0)
[2021-04-02 06:55] LABS: BLOOD UREA NITROGEN 34 MG/DL (7-18); CALCIUM LEVEL 8.8 MG/DL (8.8-10.2); CARBON DIOXIDE LEVEL 29 MEQ/L (21-32); CHLORIDE LEVEL 109 MEQ/L (98-107); CREATININE FOR GFR 0.88 MG/DL (0.55-1.30); GLOMERULAR FILTRATION RATE > 60.0 (>32); GLUCOSE, FASTING 86 MG/DL (70-100); MAGNESIUM LEVEL 2.3 MG/DL (1.8-2.4); PHOSPHORUS LEVEL 2.9 MG/DL (2.5-4.9); POTASSIUM SERUM 4.3 MEQ/L (3.5-5.1); SODIUM LEVEL 142 MEQ/L (136-145)
[2021-04-02] MEDS: APIXABAN 5 MG TAB (ELIQUIS) PO SCH ×2 (10:16→21:04)
[2021-04-02] MEDS: MULTIVITAMINS/MINERALS THERAP 1 TAB PO SCH (10:16)
[2021-04-02] MEDS: PRAMIPEXOLE 0.25 MG TAB PO SCH ×2 (10:17→21:04)
[2021-04-02] MEDS: SINEMET 25-100 MG TAB PO SCH ×4 (10:18→21:04)
[2021-04-02 14:00] VITALS: BP 120/68
--- NOTE | 2021-04-02 14:23 | IPNPDOC ---
Subjective Date Seen The patient was seen on 04/02/21. Subjective Chief Complaint/HPI Patient seen and examined at bedside this morning. She intermittently answers questions and this is likely due to her dementia. She had no new complaints. Objective Physical Examination Other physical findings General: Lying in bed, no acute distress Head/Neck/Throat: Trachea midline, mucous membranes moist Eyes: Sclera anicteric, no erythema or discharge appreciated bilaterally Thorax: Normal respiratory effort on room air, lungs clear to auscultation bilaterally, no wheezes/rales/rhonchi Cardiovascular: Normal rate, regular rhythm, normal S1, S2; no S3, S4, rubs/gallops/murmurs Abdomen: Bowel sounds present, soft/nontender/nondistended Genitourinary: No CVA tenderness, no Myers in place Musculoskeletal: Moving all extremities, no edema Skin: Warm, dry Neurologic: Awake, alert, oriented x2 (to self and year). Assessment /Plan Assessment #Metabolic encephalopathy -Resolved, this was secondary to urinary tract infection. #Urinary tract infection -Change to cefdinir based on cx for a total of 7 days. #Parkinson's disease with dementia. -There is concerns that patient had a stroke due to her change in mental status, facial droop, and garbled speech chills appreciated on admission. However, after speaking to the patient's daughter (Darcy) she reports that this year, and findings for the last few months. There is times on exam her facial droop is not present, and this is likely due to the fact she does not have her bottom plate/dentures in place. There was no focal weakness that was appreciated on today's exam. Daughter reports she sundown's, and has been having garbled speech when this happens; this is not a new finding. Family overall has noticed worsening of her dementia and Parkinson's disease. Darcy reported patient has to be told several times before she is able to execute action. -MRI did not show any acute stroke. MRA showed narrowing of 2 vessels of the vertebral artery. These findings were discussed with on-call neurologist and there is no acute intervention required at this time. -She is known to Dr. Guillermo's practice, and it was recommended to continue with same Parkinson medications. #CKD -Creatinine is at baseline. Avoid nephrotoxic medications. #Obstructive sleep apnea not on home CPAP -Continue to monitor respiratory status, saturating well on room air. Further assessment for CPAP can be done as outpatient. #Paroxysmal atrial fibrillation -Rate is controlled with bisoprolol; she is on Eliquis for systemic anticoagulation #History of PE -Continue with Eliquis. #Hypertension -Blood pressure acceptable. Continue with bisoprolol. #Hypothyroidism -Continue ambulatory levothyroxine. #Deconditioning and social concerns -Concerns that family may be having difficulty with handling the needs of the patient. Therefore PFS will be consulted #DVT prophylaxis -Offered by [facility] Disposition: pending pt evaluation Plan/VTE VTE Prophylaxis Ordered?: Yes VS, I&O, 24H, Fishbone Vital Signs/I&O Vital Signs Date Time Temp Pulse Resp B/P (MAP) Pulse Ox O2 Delivery O2 Flow Rate FiO2 04/02/21 06:00 98.3 54 18 132/77 (95) 97 03/31/21 22:15 Nasal Cannula 3.0 I&O- Last 24 Hours up to 6 AM 04/02/21 06:00 Intake Total 540 ml Output Total 0 ml Balance 540 ml Laboratory Data 24H LABS Laboratory Tests 2 04/02/21 06:16: Nucleated Red Blood Cells % (auto) 0.0, Anion Gap 4L, Glomerular Filtration Rate > 60.0, Calcium Level 8.8, Phosphorus Level 2.9, Magnesium Level 2.3 CBC/BMP Laboratory Tests 04/02/21 06:16 Microbiology Microbiology 03/31/21 Urine Culture - Final, Complete Proteus Mirabilis MERY DODSON M.D. Apr 02, 2021 14:23
[2021-04-02] MEDS: CEFDINIR 300 MG CAP (OMNICEF) PO SCH (21:04)
[2021-04-02] MEDS: BISOPROLOL FUM 2.5 MG PER 1/2TAB PO SCH (21:04)
[2021-04-02 22:00] VITALS: BP 145/89
[2021-04-03] MEDS: LEVOTHYROXINE 112MCG TABLET (0.112MG) PO SCH (05:43)
[2021-04-03 06:26] VITALS: BP 108/69
[2021-04-03] MEDS: MULTIVITAMINS/MINERALS THERAP 1 TAB PO SCH (09:54)
[2021-04-03] MEDS: CEFDINIR 300 MG CAP (OMNICEF) PO SCH ×2 (09:54→21:27)
[2021-04-03] MEDS: APIXABAN 5 MG TAB (ELIQUIS) PO SCH ×2 (09:54→21:27)
[2021-04-03] MEDS: SINEMET 25-100 MG TAB PO SCH ×4 (09:54→21:27)
[2021-04-03] MEDS: PRAMIPEXOLE 0.25 MG TAB PO SCH ×2 (09:54→21:27)
[2021-04-03 14:00] VITALS: BP 104/66
--- NOTE | 2021-04-03 14:26 | IPNPDOC ---
Subjective Date Seen The patient was seen on 04/03/21. Subjective Chief Complaint/HPI Patient seen and examined at bedside this morning. Due to her underlying dementia, review of systems is unreliable. Objective Physical Examination Other physical findings General: Lying in bed, no acute distress Head/Neck/Throat: Trachea midline, mucous membranes moist Eyes: Sclera anicteric, no erythema or discharge appreciated bilaterally Thorax: Normal respiratory effort on room air, lungs clear to auscultation bilaterally, no wheezes/rales/rhonchi Cardiovascular: Normal rate, regular rhythm, normal S1, S2; no S3, S4, rubs/gallops/murmurs Abdomen: Bowel sounds present, soft/nontender/nondistended Genitourinary: No CVA tenderness, no Myers in place Skin: Warm, dry Neurologic: Awake, alert, oriented x2 (to self and year). Assessment /Plan Assessment #Metabolic encephalopathy -Resolved, this was secondary to urinary tract infection. #Urinary tract infection -Change to cefdinir based on cx for a total of 7 days. #Parkinson's disease with dementia. -There is concerns that patient had a stroke due to her change in mental status, facial droop, and garbled speech chills appreciated on admission. However, after speaking to the patient's daughter (Darcy) she reports that this year, and findings for the last few months. There is times on exam her facial droop is not present, and this is likely due to the fact she does not have her bottom plate/dentures in place. There was no focal weakness that was appreciated on today's exam. Daughter reports she sundown's, and has been having garbled speech when this happens; this is not a new finding. Family overall has noticed worsening of her dementia and Parkinson's disease. Darcy reported patient has to be told several times before she is able to execute action. -MRI did not show any acute stroke. MRA showed narrowing of 2 vessels of the vertebral artery. These findings were discussed with on-call neurologist and there is no acute intervention required at this time. -She is known to Dr. Guillermo's practice, and it was recommended to continue with same Parkinson medications. #CKD -Creatinine is at baseline. Avoid nephrotoxic medications. #Obstructive sleep apnea not on home CPAP -Continue to monitor respiratory status, saturating well on room air. Further assessment for CPAP can be done as outpatient. #Paroxysmal atrial fibrillation -Rate is controlled with bisoprolol; she is on Eliquis for systemic anticoagulation #History of PE -Continue with Eliquis. #Hypertension -Blood pressure acceptable. Continue with bisoprolol. #Hypothyroidism -Continue ambulatory levothyroxine. #Deconditioning and social concerns -Concerns that family may be having difficulty with handling the needs of the patient. Therefore PFS will be consulted #DVT prophylaxis -Offered by [facility] Disposition: Patient is medically cleared, she will be made ALC status will she works with physical therapy. Plan/VTE VTE Prophylaxis Ordered?: Yes VS, I&O, 24H, Fishbone Vital Signs/I&O Vital Signs Date Time Temp Pulse Resp B/P (MAP) Pulse Ox O2 Delivery O2 Flow Rate FiO2 04/03/21 06:26 96.8 61 18 108/69 (82) 97 Room Air 03/31/21 22:15 3.0 I&O- Last 24 Hours up to 6 AM 04/03/21 05:59 Intake Total 1140 ml Balance 1140 ml Laboratory Data Microbiology Microbiology 03/31/21 Urine Culture - Final, Complete Proteus Mirabilis MERY DODSON M.D. Apr 03, 2021 14:26
[2021-04-03 21:26] VITALS: BP 104/66
[2021-04-03] MEDS: BISOPROLOL FUM 2.5 MG PER 1/2TAB PO SCH (21:26)
[2021-04-03 22:15] VITALS: BP 103/62
[2021-04-04 05:57] VITALS: BP 141/61
[2021-04-04] MEDS: LEVOTHYROXINE 112MCG TABLET (0.112MG) PO SCH (06:37)
[2021-04-04] MEDS: MULTIVITAMINS/MINERALS THERAP 1 TAB PO SCH (09:19)
[2021-04-04] MEDS: SINEMET 25-100 MG TAB PO SCH ×4 (09:19→21:48)
[2021-04-04] MEDS: APIXABAN 5 MG TAB (ELIQUIS) PO SCH ×2 (09:19→21:48)
[2021-04-04] MEDS: CEFDINIR 300 MG CAP (OMNICEF) PO SCH ×2 (09:19→21:48)
[2021-04-04] MEDS: PRAMIPEXOLE 0.25 MG TAB PO SCH ×2 (09:20→21:49)
[2021-04-04 14:00] VITALS: BP 134/60
[2021-04-04] MEDS: BISOPROLOL FUM 2.5 MG PER 1/2TAB PO SCH (21:49)
[2021-04-05] MEDS: LEVOTHYROXINE 112MCG TABLET (0.112MG) PO SCH (05:32)
[2021-04-05] MEDS: SINEMET 25-100 MG TAB PO SCH ×2 (10:01→12:31)
[2021-04-05] MEDS: APIXABAN 5 MG TAB (ELIQUIS) PO SCH (10:01)
[2021-04-05] MEDS: CEFDINIR 300 MG CAP (OMNICEF) PO SCH (10:01)
[2021-04-05] MEDS: MULTIVITAMINS/MINERALS THERAP 1 TAB PO SCH (10:01)
[2021-04-05] MEDS: PRAMIPEXOLE 0.25 MG TAB PO SCH (10:01)
[2021-04-05] MEDS ORDERED: CEFD300CAP PO (14:20)
--- NOTE | 2021-04-05 18:36 | DS.PDOC ---
Discharge Summary General Date of Admission Mar 31, 2021 at 19:22 Date of Discharge 04/05/21 Discharge Summary DISCHARGE DIAGNOSES: 1. Metabolic encephalopathy 2. UTI 3. Parkinson's disease COMPLICATIONS/CHIEF COMPLAINT: UTI. HISTORY OF PRESENT ILLNESS: . HOSPITAL COURSE: Ms. Lopez, is a 85-year-old female with a past medical history of Parkinson Disease w/ dementia, pAfib and prior b/l PE (12/2016) on eliquis, hypothyroidism, htn, KACIE not on CPAP, MGUS, who presented to the [facility] ED on 03/31/21 via EMS primarily for altered mental status. This was due to a urinary tract infection. She was treated with IV antibiotics and asked to complete a course of p.o. antibiotics as prescribed upon discharge. There was improvement back to her baseline mental status at the time of discharge. During hospitalization, an MRI was done that showed no acute pathology. However, on MRA there was nonvisualization of the flow within the distal V3 and proximal V4 segments of the right vertebral artery concerning for occlusion. 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 This was reviewed with Dr. Guillermo and no acute interventions were required at this time. Patient is known to Dr. Guillermo's practice. Family was asked that she follow-up with neurology upon discharge. Patient's again contacted after discharge to remind him of MRI findings, reported he has follow up appointment with neurology. DISCHARGE MEDICATIONS: Please see below. ALLERGIES: Please see below. PHYSICAL EXAMINATION ON DISCHARGE: VITAL SIGNS: Please see below. General: Lying in bed, no acute distress Head/Neck/Throat: Trachea midline, mucous membranes moist Eyes: Sclera anicteric, no erythema or discharge appreciated bilaterally Thorax: Normal respiratory effort on room air, lungs clear to auscultation bilaterally, no wheezes/rales/rhonchi Cardiovascular: Normal rate, regular rhythm, normal S1, S2; no S3, S4, rubs/gallops/murmurs Abdomen: Bowel sounds present, soft/nontender/nondistended Genitourinary: No CVA tenderness, no Myers in place Skin: Warm, dry Neurologic: Awake, alert, oriented x2 (to self and year). LABORATORY DATA: Please see below. IMAGING: CT Head without contrast FINDINGS: There is mild atrophy. There is no midline shift or mass effect. Decker-white differentiation is well maintained. There is no acute intracranial hemorrhage or extra-axial fluid collection. Bone window examination is unremarkable. The visualized mastoid air cells and paranasal sinuses are clear. Vascular calcifications are seen in the carotid siphons. IMPRESSION: Mild chronic atrophy. No acute intracranial hemorrhage, midline shift or mass effect. Chest, 1 view FINDINGS: The cardiac silhouette is stable. Hiatal hernia noted. The lung hermosillo demonstrate chronic stable changes without acute consolidation, effusion, or pneumothorax. Skeletal structures are intact. IMPRESSION: No acute cardiopulmonary process appreciated. MRA BRAIN W/O CONTRAST FINDINGS: ANTERIOR CIRCULATION: Right internal carotid artery: Artifact limits evaluation of the right internal carotid artery. No occlusion. Right middle cerebral artery: No significant stenosis or occlusion of the M1 segment of the right middle cerebral artery. Suboptimal evaluation of M2 and M3 segments due to artifact. Flow-limiting pathology cannot be excluded. Right anterior cerebral artery: Severe hypoplasia or aphasia of the A1 segment right anterior cerebral artery. At the level of the proximal A2 segment of the right anterior cerebral arteries, there is a small vascular bulge or aneurysm measuring 2-3 mm in diameter. Left internal carotid artery: Artifact limits evaluation of the left internal carotid artery. No occlusion. Left middle cerebral artery: No significant stenosis or occlusion of the M1 segment of the left middle cerebral artery. Suboptimal evaluation of M2 and M3 segments due to artifact. Flow-limiting pathology cannot be excluded. Left anterior cerebral artery: Suboptimal evaluation of the left anterior cerebral artery. No complete occlusion. POSTERIOR CIRCULATION: Right vertebral artery: There is nonvisualization of flow within the distal V3 and proximal V4 segments of the right vertebral artery, concerning for occlusion. Artifact can contribute to this finding. Severe hypoplasia and decreased flow of the right vertebral artery distally. Left vertebral artery: A dominant left vertebral artery is visualized. Artifact limits evaluation of the proximal V4 segment. No occlusion. Basilar artery: Artifact limits evaluation of the basilar artery, without occlusion. Right posterior cerebral artery: Flow is poorly visualized within the distal bilateral posterior cerebral arteries, which can be due to the limitations of the study, although arterial occlusion cannot be excluded. Left posterior cerebral artery: See above. IMPRESSION: 1. There is nonvisualization of flow within the distal V3 and proximal V4 segments of the right vertebral artery, concerning for occlusion. Artifact can contribute to this finding. Severe hypoplasia and decreased flow of the right vertebral artery distally. 2. At the level of the proximal A2 segment of the right anterior cerebral arteries, there is a small vascular bulge or aneurysm measuring 2-3 mm in diameter. 3. No significant stenosis or occlusion of the M1 segments of the bilateral middle cerebral artery. Suboptimal evaluation of bilateral M2 and M3 segments due to artifact. Flow-limiting pathology cannot be excluded. 4. Flow is poorly visualized within the distal bilateral posterior cerebral arteries, which can be due to the limitations of the study, although arterial occlusion cannot be excluded. 5. Additional findings described above. 6. Correlation with CTA recommended, as clinically indicated. MRI-Brain without Contrast FINDINGS: Limitations: Motion artifact significantly limits this study. Brain: No restricted diffusion within the brain to suggest an acute infarct. There are scattered foci of FLAIR hyperintensity within the cerebral white matter. There is no mass effect or restricted diffusion associated with these foci. In a patient this age, this likely represents chronic small vessel ischemic disease. There is mild to moderate prominence of sulci, compatible with atrophy. No significant cerebral edema. Magnetic susceptibility is identified inferior to the frontal lobes, which can be contributed by volume averaging with the sphenoid sinus as well as artifact. This is of indeterminate clinical significance. Cerebral ventricles: Mild age-appropriate prominence of the ventricles. Pituitary gland and sella: Evaluation of the pituitary gland is limited by slice acquisition. Bones/joints: Hyperostosis frontalis interna. Paranasal sinuses: Mucosal thickening of ethmoid air cells bilaterally. Minimal mucosal thickening of the maxillary sinuses. Mastoid air cells: No mastoid effusion. Orbital cavity: Bilateral orbital lens implants. Motion artifact limits evaluation of the optic globes. Soft tissues: Unremarkable, as visualized. IMPRESSION: 1. No acute infarct. 2. Mild white matter disease, likely representing chronic small vessel ischemic disease. 3. Mild to moderate atrophy. 4. Paranasal sinus disease. 5. Additional findings described above. Duplex,carotid (complete IMPRESSION: According to the SRU criteria there is less than 50% stenosis of the internal carotid artery bilaterally. PROGNOSIS: Fair ACTIVITY: As tolerated DISCHARGE INSTRUCTIONS: 1. Follow up with primary care doctor or neurology within 5 days. DISCHARGE CONDITION: [Stable]. TIME SPENT ON DISCHARGE: 30 minutes. Vital Signs/I&Os Vital Signs Date Time Temp Pulse Resp B/P (MAP) Pulse Ox O2 Delivery O2 Flow Rate FiO2 04/04/21 14:00 96.3 60 17 134/60 (84) 94 Room Air 03/31/21 22:15 3.0 I&O- Last 24 Hours up to 6 AM 04/05/21 05:59 Intake Total 480 ml Balance 480 ml Microbiology Microbiology 03/31/21 Urine Culture - Final, Complete Proteus Mirabilis Discharge Medications Scheduled Apixaban (Eliquis) 5 Mg Tab, 5 MG PO BID, (Reported) Bisoprolol Fumarate (Bisoprolol Fumarate) 5 Mg Tab, 2.5 MG PO QHS, (Reported) Carbidopa/Levodopa (Sinemet 25-100 mg Tablet) 1 Tab Tab, 1 TAB PO QID, (Reported) Cefdinir (Cefdinir) 300 Mg Capsule, 300 MG PO BID Furosemide (Furosemide) 40 Mg Tablet, 40 MG PO BID, (Reported) Levothyroxine Sodium (Levothyroxine Sodium) 112 Mcg Tablet, 112 MCG PO DAILY, (Reported) Multivitamins (Thera M Plus Tablet) 1 Each Tablet, 1 TAB PO DAILY, (Reported) TAKES AT NOON Potassium Chloride (Potassium Chloride) 10 Meq Tab, 20 MEQ PO BID, (Reported) Pramipexole Di-HCl (Pramipexole Dihydrochloride) 0.75 Mg Tablet, 0.75 MG PO BID, (Reported) Scheduled PRN Nystatin (Nystatin) 100,000 Unit/Gm Cre, 1 APPLIC TOP BID PRN for RASH, (Reported) APPLIES TO UNDER BREASTS AND GROIN Allergies Coded Allergies: No Known Allergies (Unverified , 02/04/21) MERY DODSON M.D. Apr 05, 2021 14:54
== END 2021-04-05 15:40 | disposition home health service (06) | DRG 689 ==
LOC: M ED 12:36 → M ED INP 19:22 → ENRESERV 22:42 → M MS5PR 04-01 00:40
PROVIDERS: ADMIT Internal Medicine; ATTEND Family Medicine
DX: N39.0 Urinary tract infection, site not specified (principal); G93.41 Metabolic encephalopathy; E87.3 Alkalosis; Z66 Do not resuscitate; G31.83 Neurocognitive disorder with Lewy bodies; I48.0 Paroxysmal atrial fibrillation; Z86.711 Personal history of pulmonary embolism; Z79.01 Long term (current) use of anticoagulants; E03.9 Hypothyroidism, unspecified; I12.9 Hypertensive chronic kidney disease with stage 1 through stage 4 chronic kidney disease, or unspecified chronic kidney disease; G47.33 Obstructive sleep apnea (adult) (pediatric); D47.2 Monoclonal gammopathy; R29.6 Repeated falls; R47.81 Slurred speech; R29.810 Facial weakness; E78.2 Mixed hyperlipidemia; R42 Dizziness and giddiness; M19.90 Unspecified osteoarthritis, unspecified site; M51.36 Other intervertebral disc degeneration, lumbar region; Z98.1 Arthrodesis status; Z98.41 Cataract extraction status, right eye; Z98.42 Cataract extraction status, left eye; Z96.652 Presence of left artificial knee joint; N18.32 Chronic kidney disease, stage 3b; R00.1 Bradycardia, unspecified; Z72.3 Lack of physical exercise; E66.9 Obesity, unspecified; Z79.899 Other long term (current) drug therapy; Z20.822 Contact with and (suspected) exposure to COVID-19; I44.0 Atrioventricular block, first degree

== ENCOUNTER → 2021-04-22 | Outpatient (CLI) | payer MEDICARE ==
[~2021-04-22] MED LIST changes: +CEFD300CAP PO; +LEVO112T2 PO; +PRAM0.754 PO
[2021-04-22 14:18] LABS: CHOLESTEROL RISK RATIO 4.394 (<5)
== END ==
LOC: M PLALAB 09:46
PROVIDERS: ATTEND Physician Assistant Medical
DX: I63.9 Cerebral infarction, unspecified (principal)

== ENCOUNTER → 2021-05-24 | Outpatient (REF) | payer MEDICARE | LOC: M SFHCPLAZ 11:06 | PROVIDERS: ATTEND Family Medicine | DX: G47.10 Hypersomnia, unspecified (principal); R05.9 Cough, unspecified; R73.01 Impaired fasting glucose; I10 Essential (primary) hypertension; E03.9 Hypothyroidism, unspecified; Z87.440 Personal history of urinary (tract) infections ==

== ENCOUNTER → 2021-05-24 | Outpatient (CLI) | payer MEDICARE ==
[2021-05-24 13:40] LABS: AMORPHOUS SEDIMENT SMALL (NEGATIVE); APPEARANCE, URINE HAZY (CLEAR); BACTERIA, URINE AUTO 1+ (NEGATIVE); BILIRUBIN, URINE AUTO NEGATIVE (NEGATIVE); BLOOD, URINE BLOOD NEGATIVE (NEGATIVE); CALCIUM OXALATE CRYSTALS SMALL; COLOR, URINE YELLOW (YELLOW); GLUCOSE, URINE (UA) AUTO NEGATIVE (NEGATIVE); KETONE, URINE AUTO NEGATIVE (NEGATIVE); LEUKOCYTE ESTERASE, URINE AUTO 2+ (NEGATIVE); NITRITE, URINE AUTO NEGATIVE (NEGATIVE); PROTEIN, URINE AUTO NEGATIVE (NEGATIVE); RBC, URINE AUTO 3 /HPF (0-3); SPECIFIC GRAVITY URINE AUTO 1.008 (1.002-1.035); SQUAMOUS EPITHELIAL CELL UR AU 1 /HPF (0-6); UROBILINOGEN, URINE AUTO 0.2 mg/dL (0.0-2.0); WBC, URINE AUTO 10 /HPF (0-3)
[2021-05-24 13:43] LABS: HEMATOCRIT 39.8 % (36.0-47.0); HEMOGLOBIN 12.1 g/dl (12.0-15.5); MEAN CORPUSCULAR HEMOGLOBIN 30.5 pg (27.0-33.0); MEAN CORPUSCULAR HGB CONC 30.4 g/dl (32.0-36.5); MEAN CORPUSCULAR VOLUME 100.3 fl (80.0-96.0); PLATELET COUNT, AUTOMATED 156 10^3/uL (150-450); RED BLOOD COUNT 3.97 10^6/uL (4.00-5.40); WHITE BLOOD COUNT 5.6 10^3/uL (4.0-10.0)
[2021-05-24 14:32] LABS: ALBUMIN 3.1 GM/DL (3.2-5.2); BILIRUBIN,TOTAL 0.4 MG/DL (0.2-1.0); CALCIUM LEVEL 9.5 MG/DL (8.8-10.2); CREATININE FOR GFR 0.99 MG/DL (0.55-1.30); FOLATE 16.5 NG/ML (>5.4); FREE T4 1.43 NG/DL (0.76-1.46); GLOMERULAR FILTRATION RATE 56.8 (>32); POTASSIUM SERUM 4.4 MEQ/L (3.5-5.1); THYROID STIMULATING HORMONE 0.552 uIU/ML (0.358-3.740); TOTAL PROTEIN 6.7 GM/DL (6.4-8.2)
[2021-05-24 14:38] LABS: HEMOGLOBIN A1c 5.7 %
--- NOTE | 2021-05-25 03:13 | REP ---
INDICATION: HYPERSOMNIA, UNSPECIFIED COMPARISON: 1321 and TECHNIQUE: PA and lateral. FINDINGS: Examination is limited by positioning and underpenetration. Large hiatal hernia is suspected. No evidence for cardiomegaly. Lung hermosillo demonstrate chronic appearing changes although subtle airspace disease at the right base cannot be excluded. No effusion. No pneumothorax. IMPRESSION: Limited chronic appearing changes as described above. Cannot exclude subtle right basilar airspace disease. <Electronically signed by Cornelio Oliver > 05/25/21 3316
== END ==
LOC: M PLAIMG 11:28
PROVIDERS: ATTEND Family Medicine
DX: G47.10 Hypersomnia, unspecified (principal); R05.9 Cough, unspecified; R73.01 Impaired fasting glucose; I10 Essential (primary) hypertension; E03.9 Hypothyroidism, unspecified; Z87.440 Personal history of urinary (tract) infections; Z79.899 Other long term (current) drug therapy
CPT/HCPCS: 36415; 71046; 80053; 81001; 82607; 82746; 83036; 84439; 84443; 85027; 87088; 87186; G0463

== ENCOUNTER 2021-07-03 17:14 | Inpatient (IN) | payer MEDICARE ==
[~2021-07-03] VITALS: Ht 167.6 cm; Wt 89.6 kg
[~2021-07-03 17:14] MED LIST changes: +LOSA25TA13 PO; -LOSA25TA14 PO
[2021-07-03 17:34] LABS: VENOUS BASE EXCESS -3.5 (-2.0-2.0); VENOUS HCO3 21.9 MEQ/L (23.0-27.0); VENOUS O2 SATURATION 58.5 % (60.0-80.0); VENOUS PARTIAL PRESSURE CO2 40.8 mmHg (38.0-50.0); VENOUS PARTIAL PRESSURE O2 34.2 mmHg (30.0-50.0); VENOUS PH 7.348 UNITS (7.330-7.430); VENOUS STANDARD HCO3 20.7 MEQ/L; VENOUS TOTAL CO2 23.2 MEQ/L (24.0-28.0)
[2021-07-03] MEDS ORDERED: NS 2,560 ML in IV 1 EA IV ONE (18:00)
[2021-07-03] MEDS ORDERED: cefTRIAXone SOD 2 GM in D5W MINI-BAG PLUS 50 ML IV ONE (18:00)
[2021-07-03 18:10] LABS: ALBUMIN 2.7 GM/DL (3.2-5.2); BILIRUBIN,DIRECT 0.3 MG/DL (0.0-0.2); BILIRUBIN,TOTAL 0.7 MG/DL (0.2-1.0); CALCIUM LEVEL 9.6 MG/DL (8.8-10.2); CREATININE FOR GFR 2.02 MG/DL (0.55-1.30); GLOMERULAR FILTRATION RATE 24.9 (>32); POTASSIUM SERUM 5.1 MEQ/L (3.5-5.1); TOTAL PROTEIN 7.1 GM/DL (6.4-8.2)
[2021-07-03 18:15] LABS: INR 2.15; PROTHROMBIN TIME 24.4 SECONDS (12.7-14.5)
[2021-07-03 18:16] LABS: PARTIAL THROMBOPLASTIN TIME 38.9 SECONDS (25.9-37.0)
[2021-07-03 18:19] LABS: BASO % 0.2 % (0.0-1.0); HEMATOCRIT 46.8 % (36.0-47.0); HEMOGLOBIN 14.2 g/dl (12.0-15.5); LYMPH # 1.4 10^3/uL (1.5-5.0); MEAN CORPUSCULAR HGB CONC 30.3 g/dl (32.0-36.5); MEAN CORPUSCULAR VOLUME 98.7 fl (80.0-96.0); MONO # 0.9 10^3/uL (0.0-0.8); MONO % 8.9 % (2.0-8.0); NEUTROPHILS # 7.4 10^3/uL (1.5-8.5); NEUTROPHILS % 76.2 % (36.0-66.0); PLATELET COUNT, AUTOMATED 321 10^3/uL (150-450); RED BLOOD COUNT 4.74 10^6/uL (4.00-5.40); RSV AMPLIFICATION NEGATIVE (NEGATIVE); WHITE BLOOD COUNT 9.7 10^3/uL (4.0-10.0)
[2021-07-03 18:22] LABS: AMORPHOUS SEDIMENT SMALL (NEGATIVE); APPEARANCE, URINE TURBID (CLEAR); BACTERIA, URINE AUTO 1+ (NEGATIVE); BILIRUBIN, URINE AUTO NEGATIVE (NEGATIVE); BLOOD, URINE BLOOD 1+ (NEGATIVE); COLOR, URINE AMBER (YELLOW); GLUCOSE, URINE (UA) AUTO NEGATIVE (NEGATIVE); KETONE, URINE AUTO NEGATIVE (NEGATIVE); LEUKOCYTE ESTERASE, URINE AUTO 3+ (NEGATIVE); MUCUS, URINE SMALL (NEGATIVE); NITRITE, URINE AUTO NEGATIVE (NEGATIVE); PROTEIN, URINE AUTO 1+ mg/dL (NEGATIVE); RBC, URINE AUTO 6 /HPF (0-3); SPECIFIC GRAVITY URINE AUTO 1.013 (1.002-1.035); SQUAMOUS EPITHELIAL CELL UR AU 0 /HPF (0-6); WBC, URINE AUTO 99 /HPF (0-3)
[2021-07-03] MEDS ORDERED: ATOR1TAB19 PO (18:29)
[2021-07-03] MEDS ORDERED: HOME MED LIST COMPLETE! XX SCH (18:30)
[2021-07-03] MEDS ORDERED: NS 1,000 ML IV SCH (20:30)
[2021-07-03 20:41] LABS: HEMATOCRIT 41.2 % (36.0-47.0); HEMOGLOBIN 12.5 g/dl (12.0-15.5)
[2021-07-03] MEDS: SENOKOT S TAB PO SCH (21:00)
[2021-07-03] MEDS: PRAMIPEXOLE 0.25 MG TAB PO SCH (21:00)
[2021-07-03] MEDS: SINEMET 25-100 MG TAB PO SCH (21:00)
[2021-07-03] MEDS ORDERED: BISACODYL 10 MG SUPP PR ONE (21:00)
[2021-07-03] MEDS: ATORVASTATIN 10 MG TAB PO SCH (21:00)
[2021-07-03] MEDS ORDERED: MOM 30ML SUSPENSION UDC PO ONE (21:00)
[2021-07-03 21:01] LABS: HEMOGLOBIN A1c 5.8 %
[2021-07-03] MEDS ORDERED: NYSTATIN CREAM 15 GM TOP PRN (21:05)
[2021-07-03 21:30] VITALS: BP 109/70
[2021-07-03 23:00] VITALS: BP 102/57
[2021-07-03] MEDS ORDERED: D5W/0.9% SODIUM CHLORIDE 1,000 ML IV SCH (23:00)
[2021-07-04] VITALS (22 sets, daily range): BP systolic 111–126; BP diastolic 51–69; O2SAT 90–100
[2021-07-04] MEDS ORDERED: PANTOPRAZOLE 40MG VIAL (C9113 PER 1) IV ONE
[2021-07-04 02:45] LABS: BASO % 0.2 % (0.0-1.0); EOS % 0.1 % (0.0-3.0); HEMATOCRIT 37.8 % (36.0-47.0); HEMOGLOBIN 11.5 g/dl (12.0-15.5); LYMPH # 1.5 10^3/uL (1.5-5.0); LYMPH % 15.9 % (24.0-44.0); MEAN CORPUSCULAR HEMOGLOBIN 30.2 pg (27.0-33.0); MEAN CORPUSCULAR HGB CONC 30.4 g/dl (32.0-36.5); MEAN CORPUSCULAR VOLUME 99.2 fl (80.0-96.0); MONO # 1.1 10^3/uL (0.0-0.8); MONO % 11.3 % (2.0-8.0); NEUTROPHILS # 6.7 10^3/uL (1.5-8.5); NEUTROPHILS % 71.9 % (36.0-66.0); PLATELET COUNT, AUTOMATED 254 10^3/uL (150-450); RED BLOOD COUNT 3.81 10^6/uL (4.00-5.40); WHITE BLOOD COUNT 9.4 10^3/uL (4.0-10.0)
[2021-07-04 03:29] LABS: CALCIUM LEVEL 8.1 MG/DL (8.8-10.2); CREATININE FOR GFR 1.33 MG/DL (0.55-1.30); FREE T3 1.3 PG/ML (2.2-4.0); FREE T4 1.69 NG/DL (0.76-1.46); GLOMERULAR FILTRATION RATE 40.4 (>32); POTASSIUM SERUM 4.2 MEQ/L (3.5-5.1); THYROID STIMULATING HORMONE 0.387 uIU/ML (0.358-3.740)
[2021-07-04] MEDS: LEVOTHYROXINE 112MCG TABLET (0.112MG) PO SCH (06:00)
[2021-07-04] MEDS: SINEMET 25-100 MG TAB PO SCH ×4 (09:00→20:13)
[2021-07-04] MEDS: PRAMIPEXOLE 0.25 MG TAB PO SCH ×2 (09:00→21:00)
[2021-07-04] MEDS: SENOKOT S TAB PO SCH ×2 (09:00→20:13)
[2021-07-04] MEDS: D5W 1,000 ML IV SCH ×2 (09:32→17:08)
[2021-07-04 11:27] LABS: HEMATOCRIT 40.8 % (36.0-47.0); HEMOGLOBIN 12.3 g/dl (12.0-15.5)
[2021-07-04] MEDS ORDERED: VANCOMYCIN HCL 0 MG in IV FLUID PLACE HOLDER 1 EA IV SCH (16:00)
[2021-07-04] MEDS ORDERED: cefTRIAXone SOD 1 GM in D5W MINI-BAG PLUS 50 ML IV SCH ×3 (16:00→18:00)
[2021-07-04] MEDS ORDERED: VANCOMYCIN HCL 1,000 MG, VIAL MATE ADAPTER 1 EACH in NS 250 ML IV ONE (19:00)
[2021-07-04 19:03] LABS: HEMATOCRIT 40.4 % (36.0-47.0); HEMOGLOBIN 12.2 g/dl (12.0-15.5)
[2021-07-04] MEDS ORDERED: VANCOMYCIN HCL 750 MG, VIAL MATE ADAPTER 1 EACH in NS 250 ML IV ONE (20:00)
[2021-07-04] MEDS: ATORVASTATIN 10 MG TAB PO SCH (20:12)
[2021-07-05] VITALS (16 sets, daily range): BP systolic 102–130; BP diastolic 49–73; O2SAT 93–100
[2021-07-05 05:51] LABS: BASO % 0.3 % (0.0-1.0); EOS # 0.1 10^3/uL (0.0-0.5); EOS % 1.9 % (0.0-3.0); HEMATOCRIT 34.4 % (36.0-47.0); HEMOGLOBIN 10.3 g/dl (12.0-15.5); LYMPH # 1.3 10^3/uL (1.5-5.0); LYMPH % 17.6 % (24.0-44.0); MEAN CORPUSCULAR HEMOGLOBIN 30.1 pg (27.0-33.0); MEAN CORPUSCULAR HGB CONC 29.9 g/dl (32.0-36.5); MEAN CORPUSCULAR VOLUME 100.6 fl (80.0-96.0); MONO # 0.7 10^3/uL (0.0-0.8); MONO % 8.9 % (2.0-8.0); NEUTROPHILS # 5.1 10^3/uL (1.5-8.5); NEUTROPHILS % 70.6 % (36.0-66.0); PLATELET COUNT, AUTOMATED 221 10^3/uL (150-450); RED BLOOD COUNT 3.42 10^6/uL (4.00-5.40); WHITE BLOOD COUNT 7.3 10^3/uL (4.0-10.0)
[2021-07-05] MEDS: LEVOTHYROXINE 112MCG TABLET (0.112MG) PO SCH (05:59)
[2021-07-05] MEDS: D5W 1,000 ML IV SCH ×3 (06:08→17:41)
[2021-07-05 06:23] LABS: CALCIUM LEVEL 8.1 MG/DL (8.8-10.2); CREATININE FOR GFR 0.96 MG/DL (0.55-1.30); GLOMERULAR FILTRATION RATE 58.8 (>32); MAGNESIUM LEVEL 2.5 MG/DL (1.8-2.4); PHOSPHORUS LEVEL 2.3 MG/DL (2.5-4.9); POTASSIUM SERUM 3.8 MEQ/L (3.5-5.1)
[2021-07-05] MEDS: PRAMIPEXOLE 0.25 MG TAB PO SCH ×2 (09:00→20:22)
[2021-07-05] MEDS: SENOKOT S TAB PO SCH ×2 (09:00→20:22)
[2021-07-05] MEDS: SINEMET 25-100 MG TAB PO SCH ×4 (09:00→20:23)
[2021-07-05 09:21] LABS: VANCOMYCIN RANDOM 9.1 UG/ML
[2021-07-05] MEDS ORDERED: VANCOMYCIN HCL 750 MG, VIAL MATE ADAPTER 1 EACH in NS 250 ML IV SCH ×2 (10:00→18:00)
[2021-07-05] MEDS ORDERED: VANCOMYCIN HCL 500 MG in D5W MINI-BAG PLUS 100 ML IV SCH ×2 (11:00→19:00)
[2021-07-05] MEDS ORDERED: cefTRIAXone SOD 1 GM in D5W MINI-BAG PLUS 50 ML IV SCH (17:00)
[2021-07-05] MEDS ORDERED: POTASSIUM PHOSPHATE INJ 20 MMOL in D5W 250 ML IV ONE (20:00)
[2021-07-05] MEDS: ATORVASTATIN 10 MG TAB PO SCH (20:22)
[2021-07-06] VITALS: BP 91/54
[2021-07-06 04:00] VITALS: BP 114/62
[2021-07-06] MEDS: D5W 1,000 ML IV SCH (04:30)
[2021-07-06 05:07] LABS: BASO % 0.1 % (0.0-1.0); EOS # 0.2 10^3/uL (0.0-0.5); EOS % 2.9 % (0.0-3.0); HEMATOCRIT 31.8 % (36.0-47.0); HEMOGLOBIN 9.9 g/dl (12.0-15.5); LYMPH # 1.2 10^3/uL (1.5-5.0); MEAN CORPUSCULAR HEMOGLOBIN 30.6 pg (27.0-33.0); MEAN CORPUSCULAR HGB CONC 31.1 g/dl (32.0-36.5); MEAN CORPUSCULAR VOLUME 98.1 fl (80.0-96.0); MONO # 0.6 10^3/uL (0.0-0.8); NEUTROPHILS # 4.8 10^3/uL (1.5-8.5); NEUTROPHILS % 70.1 % (36.0-66.0); PLATELET COUNT, AUTOMATED 209 10^3/uL (150-450); RED BLOOD COUNT 3.24 10^6/uL (4.00-5.40); WHITE BLOOD COUNT 6.9 10^3/uL (4.0-10.0)
[2021-07-06] MEDS: LEVOTHYROXINE 112MCG TABLET (0.112MG) PO SCH (05:12)
[2021-07-06 05:37] LABS: BLOOD UREA NITROGEN 20 MG/DL (7-18); CALCIUM LEVEL 8.1 MG/DL (8.8-10.2); CARBON DIOXIDE LEVEL 22 MEQ/L (21-32); CHLORIDE LEVEL 113 MEQ/L (98-107); CREATININE FOR GFR 0.84 MG/DL (0.55-1.30); GLOMERULAR FILTRATION RATE > 60.0 (>32); GLUCOSE, FASTING 174 MG/DL (70-100); MAGNESIUM LEVEL 2.2 MG/DL (1.8-2.4); PHOSPHORUS LEVEL 2.6 MG/DL (2.5-4.9); POTASSIUM SERUM 3.4 MEQ/L (3.5-5.1); SODIUM LEVEL 142 MEQ/L (136-145)
[2021-07-06] MEDS: SINEMET 25-100 MG TAB PO SCH ×3 (09:00→17:00)
[2021-07-06] MEDS: SENOKOT S TAB PO SCH (09:00)
[2021-07-06] MEDS: PRAMIPEXOLE 0.25 MG TAB PO SCH ×2 (09:00→21:00)
[2021-07-06 09:01] VITALS: BP 93/52
[2021-07-06] MEDS ORDERED: LevoFLOXacin IV 750 MG in IV 1 EA IV SCH (10:00)
[2021-07-06] MEDS: KCL 10MEQ/100ML SWI (KRUN) 10 MEQ in IV 1 EA IV SCH ×4 (12:18→16:59)
[2021-07-06 12:29] VITALS: BP 103/58
[2021-07-06] MEDS ORDERED: MORPHINE 10MG/0.5ML ORAL CONCENTRATE SOLUTION U/D SL PRN (15:20)
[2021-07-06] MEDS ORDERED: ONDANSETRON 4MG/2ML VIAL IV PRN (15:20)
[2021-07-06] MEDS ORDERED: LORazepam 2 MG/ML VIAL IV PRN (15:20)
[2021-07-07] MEDS: PRAMIPEXOLE 0.25 MG TAB PO SCH ×2 (08:45→19:27)
[2021-07-07] MEDS ORDERED: MORPHINE 10MG/0.5ML ORAL CONCENTRATE SOLUTION U/D SL PRN (12:05)
[2021-07-07] MEDS: MORPHINE 10MG/0.5ML ORAL CONCENTRATE SOLUTION U/D SL PRN (19:01)
[2021-07-08] MEDS: MORPHINE 10MG/0.5ML ORAL CONCENTRATE SOLUTION U/D SL PRN ×2 (01:23→06:58)
[2021-07-08] MEDS: PRAMIPEXOLE 0.25 MG TAB PO SCH ×2 (09:00→20:35)
[2021-07-09] MEDS: PRAMIPEXOLE 0.25 MG TAB PO SCH ×2 (08:58→20:41)
[2021-07-10] MEDS: PRAMIPEXOLE 0.25 MG TAB PO SCH ×2 (09:00→20:17)
[2021-07-11] MEDS: PRAMIPEXOLE 0.25 MG TAB PO SCH ×2 (08:21→20:25)
[2021-07-12] MEDS: PRAMIPEXOLE 0.25 MG TAB PO SCH (09:00)
[2021-07-12] MEDS ORDERED: ATIV1TAB10 PO (09:28)
[2021-07-12] MEDS ORDERED: MORP1SOL5 PO (09:28)
[2021-07-12] MEDS ORDERED: HYOS125TA PO (09:28)
== END 2021-07-12 11:45 | disposition hospice, inpatient (51) | DRG 871 ==
LOC: M ED 17:14 → M ED INP 19:02 → ENRESERV 20:48 → M PCU 21:30 → M MSPAV 07-06 17:12
PROVIDERS: ADMIT Family Medicine; ATTEND Internal Medicine
DX: A41.9 Sepsis, unspecified organism (principal); G93.41 Metabolic encephalopathy; N39.0 Urinary tract infection, site not specified; E87.2 Acidosis; K92.2 Gastrointestinal hemorrhage, unspecified; N17.9 Acute kidney failure, unspecified; Z66 Do not resuscitate; F03.90 Unspecified dementia, unspecified severity, without behavioral disturbance, psychotic disturbance, mood disturbance, and anxiety; G20 Parkinson's disease; K59.00 Constipation, unspecified; G47.33 Obstructive sleep apnea (adult) (pediatric); I48.0 Paroxysmal atrial fibrillation; I10 Essential (primary) hypertension; Z86.711 Personal history of pulmonary embolism; Z79.01 Long term (current) use of anticoagulants; E03.9 Hypothyroidism, unspecified; Z74.1 Need for assistance with personal care; Z74.09 Other reduced mobility; Z20.822 Contact with and (suspected) exposure to COVID-19; Z79.899 Other long term (current) drug therapy; D47.2 Monoclonal gammopathy; E78.2 Mixed hyperlipidemia; M19.90 Unspecified osteoarthritis, unspecified site; Z98.1 Arthrodesis status; Z98.41 Cataract extraction status, right eye; Z98.42 Cataract extraction status, left eye; Z96.652 Presence of left artificial knee joint; B96.20 Unspecified Escherichia coli [E. coli] as the cause of diseases classified elsewhere; R65.20 Severe sepsis without septic shock

== ENCOUNTER → 2021-08-13 | Outpatient (REF) ==
[~2021-08-13] MED LIST changes: +ATIV1TAB10 PO; +ATOR1TAB19 PO; +HYOS125TA PO; +MORP1SOL5 PO
[2021-08-13 11:37] LABS: APPEARANCE, URINE MANUAL TURBID (CLEAR); BILIRUBIN, URINE MANUAL NEGATIVE (NEGATIVE); GLUCOSE, URINE (UA) MANUAL NEGATIVE (NEGATIVE); KETONE, URINE MANUAL NEGATIVE (NEGATIVE); PROTEIN, URINE MANUAL 1+ mg/dL (NEGATIVE); SPECIFIC GRAVITY,URINE MANUAL 1.025 (1.002-1.035); UROBILINOGEN, URINE MANUAL 4 MG mg/dl (NORMAL)
[2021-08-13 11:38] LABS: BLOOD URINE MANUAL POSITIVE (NEGATIVE); COLOR, URINE MANUAL AMBER (YELLOW); LEUKOCYTE ESTERASE, URINE MAN POSITIVE (NEGATIVE); NITRITE, URINE MANUAL NEGATIVE (NEGATIVE)
[2021-08-13 11:46] LABS: AMORPHOUS SEDIMENT, URINE LARGE AMOUNT (NEGATIVE); BACTERIA, URINE MOD AMOUNT; RBC, URINE 40-50 /hpf (0-3); SQUAMOUS EPITHELIAL CELL URINE NONE SEEN /hpf (SMALL AMT); WBC, URINE 40-50 /hpf (0-3)
== END ==
LOC: M LAB REF 11:17
PROVIDERS: ATTEND Family Medicine
DX: Z00.00 Encounter for general adult medical examination without abnormal findings (principal)

== ENCOUNTER → 2021-10-28 | Outpatient (REF) | payer MEDICARE ==
[2021-10-28 09:50] LABS: HEMATOCRIT 40.4 % (36.0-47.0); HEMOGLOBIN 12.8 g/dl (12.0-15.5); MEAN CORPUSCULAR HEMOGLOBIN 28.8 pg (27.0-33.0); MEAN CORPUSCULAR HGB CONC 31.7 g/dl (32.0-36.5); MEAN CORPUSCULAR VOLUME 90.8 fl (80.0-96.0); PLATELET COUNT, AUTOMATED 256 10^3/uL (150-450); RED BLOOD COUNT 4.45 10^6/uL (4.00-5.40)
[2021-10-28 10:24] LABS: ALBUMIN 2.8 GM/DL (3.2-5.2); ALT/SGPT 13 U/L (12-78); BILIRUBIN,TOTAL 0.5 MG/DL (0.2-1.0); BLOOD UREA NITROGEN 13 MG/DL (7-18); CALCIUM LEVEL 9.6 MG/DL (8.8-10.2); CARBON DIOXIDE LEVEL 33 MEQ/L (21-32); CHLORIDE LEVEL 104 MEQ/L (98-107); FREE T4 1.63 NG/DL (0.76-1.46); GLOMERULAR FILTRATION RATE > 60.0 (>32); GLUCOSE, FASTING 129 MG/DL (70-100); POTASSIUM SERUM 3.4 MEQ/L (3.5-5.1); SODIUM LEVEL 142 MEQ/L (136-145); TOTAL PROTEIN 6.3 GM/DL (6.4-8.2)
== END ==
LOC: SKLAB5 08:42
PROVIDERS: ATTEND Internal Medicine
DX: G20 Parkinson's disease (principal); E03.9 Hypothyroidism, unspecified

== ENCOUNTER → 2021-10-28 | Outpatient (REF) | payer MEDICARE | LOC: SKLAB5 13:44 | PROVIDERS: ATTEND Nurse Practitioner Family | DX: E03.9 Hypothyroidism, unspecified (principal) ==

== ENCOUNTER → 2021-11-08 | Outpatient (CLI) | payer MEDICARE | LOC: M RAD 12:48 | PROVIDERS: ATTEND Internal Medicine | DX: R60.9 Edema, unspecified (principal); I48.91 Unspecified atrial fibrillation; I82.413 Acute embolism and thrombosis of femoral vein, bilateral ==

== ENCOUNTER → 2021-11-29 | Outpatient (REF) | payer MEDICARE ==
[2021-11-29 09:04] LABS: HEMATOCRIT 39.6 % (36.0-47.0); HEMOGLOBIN 12.4 g/dl (12.0-15.5); MEAN CORPUSCULAR HEMOGLOBIN 28.4 pg (27.0-33.0); MEAN CORPUSCULAR HGB CONC 31.3 g/dl (32.0-36.5); MEAN CORPUSCULAR VOLUME 90.8 fl (80.0-96.0); PLATELET COUNT, AUTOMATED 264 10^3/uL (150-450); RED BLOOD COUNT 4.36 10^6/uL (4.00-5.40); WHITE BLOOD COUNT 6.9 10^3/uL (4.0-10.0)
[2021-11-29 09:26] LABS: BLOOD UREA NITROGEN 19 MG/DL (7-18); CALCIUM LEVEL 9.6 MG/DL (8.8-10.2); CARBON DIOXIDE LEVEL 28 MEQ/L (21-32); CHLORIDE LEVEL 106 MEQ/L (98-107); CREATININE FOR GFR 0.84 MG/DL (0.55-1.30); GLOMERULAR FILTRATION RATE > 60.0 (>32); GLUCOSE, FASTING 143 MG/DL (70-100); POTASSIUM SERUM 3.6 MEQ/L (3.5-5.1); SODIUM LEVEL 143 MEQ/L (136-145)
== END ==
LOC: SKLAB5 08:30
PROVIDERS: ATTEND Nurse Practitioner Adult Health
DX: I10 Essential (primary) hypertension (principal)

== ENCOUNTER → 2021-11-29 | Outpatient (REF) | payer MEDICARE ==
[2021-11-29 08:15] LABS: FREE T4 1.58 NG/DL (0.76-1.46); THYROID STIMULATING HORMONE 3.21 uIU/ML (0.358-3.740)
== END ==
LOC: SKLAB5 09:14
PROVIDERS: ATTEND Internal Medicine
DX: E03.9 Hypothyroidism, unspecified (principal); I10 Essential (primary) hypertension

== ENCOUNTER → 2022-02-03 | Outpatient (REF) | payer MEDICARE ==
[~2022-02-03] MED LIST changes: +NYST-13 TOP; -NYST10CR TOP
== END ==
LOC: SKLAB5 10:44
PROVIDERS: ATTEND Nurse Practitioner Family
DX: M79.89 Other specified soft tissue disorders (principal)

== ENCOUNTER → 2022-02-23 | Outpatient (REF) | LOC: SKLAB5 06:33 | PROVIDERS: ATTEND Internal Medicine | DX: R60.9 Edema, unspecified (principal) ==

== ENCOUNTER → 2022-05-06 | Outpatient (REF) | payer MEDICARE ==
[~2022-05-06] MED LIST changes: +CARB-113 PO; -CARB-89 PO
[2022-05-06 08:00] LABS: HEMATOCRIT 42.2 % (36.0-47.0); MEAN CORPUSCULAR HEMOGLOBIN 29.5 pg (27.0-33.0); MEAN CORPUSCULAR HGB CONC 30.8 g/dl (32.0-36.5); MEAN CORPUSCULAR VOLUME 95.9 fl (80.0-96.0); PLATELET COUNT, AUTOMATED 148 10^3/uL (150-450); WHITE BLOOD COUNT 4.6 10^3/uL (4.0-10.0)
[2022-05-06 08:51] LABS: ALBUMIN 3.1 G/DL (3.2-5.2); ALKALINE PHOSPHATASE 112 U/L (46-116); ALT/SGPT 88 U/L (7.0-40); AST/SGOT 31 U/L (<34); BILIRUBIN,TOTAL 0.4 MG/DL (0.3-1.2); BLOOD UREA NITROGEN 20 MG/DL (9-23); CALCIUM LEVEL 9.7 MG/DL (8.3-10.6); CARBON DIOXIDE LEVEL 27 MMOL/L (20-31); CHLORIDE LEVEL 104 MMOL/L (98-107); CREATININE FOR GFR 0.71 MG/DL (0.55-1.30); FREE T4 1.29 NG/DL (0.89-1.76); GLOMERULAR FILTRATION RATE > 60.0 (>32); GLUCOSE, FASTING 104 MG/DL (74-106); POTASSIUM SERUM 4.1 MMOL/L (3.5-5.1); SODIUM LEVEL 140 MMOL/L (136-145); THYROID STIMULATING HORMONE 6.769 uIU/ML (0.55-4.78); TOTAL PROTEIN 6.4 G/DL (5.7-8.2)
== END ==
LOC: SKLAB5 07:00
PROVIDERS: ATTEND Nurse Practitioner Family
DX: E03.9 Hypothyroidism, unspecified (principal); G20 Parkinson's disease

== ENCOUNTER → 2022-07-22 | Outpatient (REF) | payer MEDICARE ==
[2022-07-22 08:09] LABS: HEMATOCRIT 39.3 % (36.0-47.0); HEMOGLOBIN 12.5 g/dl (12.0-15.5); MEAN CORPUSCULAR HEMOGLOBIN 30.2 pg (27.0-33.0); MEAN CORPUSCULAR HGB CONC 31.8 g/dl (32.0-36.5); MEAN CORPUSCULAR VOLUME 94.9 fl (80.0-96.0); PLATELET COUNT, AUTOMATED 201 10^3/uL (150-450); RED BLOOD COUNT 4.14 10^6/uL (4.00-5.40); WHITE BLOOD COUNT 6.1 10^3/uL (4.0-10.0)
== END ==
LOC: SKLAB5 08:15
PROVIDERS: ATTEND Internal Medicine
DX: G20 Parkinson's disease (principal)

== ENCOUNTER → 2022-09-02 | Outpatient (REF) | payer MEDICARE ==
[2022-09-02 08:41] LABS: HEMATOCRIT 39.7 % (36.0-47.0); HEMOGLOBIN 12.4 g/dl (12.0-15.5); MEAN CORPUSCULAR HEMOGLOBIN 29.9 pg (27.0-33.0); MEAN CORPUSCULAR HGB CONC 31.2 g/dl (32.0-36.5); MEAN CORPUSCULAR VOLUME 95.7 fl (80.0-96.0); PLATELET COUNT, AUTOMATED 341 10^3/uL (150-450); RED BLOOD COUNT 4.15 10^6/uL (4.00-5.40); WHITE BLOOD COUNT 9.8 10^3/uL (4.0-10.0)
== END ==
LOC: SKLAB5 09:47
PROVIDERS: ATTEND Internal Medicine
DX: G20 Parkinson's disease (principal)

== ENCOUNTER → 2022-10-07 | Outpatient (REF) | payer MEDICARE ==
[2022-10-07 09:34] LABS: HEMATOCRIT 42.2 % (36.0-47.0); HEMOGLOBIN 13.3 g/dl (12.0-15.5); MEAN CORPUSCULAR HGB CONC 31.5 g/dl (32.0-36.5); MEAN CORPUSCULAR VOLUME 95.3 fl (80.0-96.0); PLATELET COUNT, AUTOMATED 201 10^3/uL (150-450); RED BLOOD COUNT 4.43 10^6/uL (4.00-5.40); WHITE BLOOD COUNT 5.6 10^3/uL (4.0-10.0)
== END ==
LOC: SKLAB5 09:25
PROVIDERS: ATTEND Internal Medicine
DX: G20 Parkinson's disease (principal)

== ENCOUNTER → 2022-11-04 | Outpatient (REF) | payer MEDICARE ==
[~2022-11-04] MED LIST changes: -COZA50TA PO; +LOSA-528 PO
[2022-11-04 10:34] LABS: HEMATOCRIT 43.7 % (36.0-47.0); HEMOGLOBIN 13.7 g/dl (12.0-15.5); MEAN CORPUSCULAR HEMOGLOBIN 30.3 pg (27.0-33.0); MEAN CORPUSCULAR HGB CONC 31.4 g/dl (32.0-36.5); MEAN CORPUSCULAR VOLUME 96.7 fl (80.0-96.0); PLATELET COUNT, AUTOMATED 159 10^3/uL (150-450); RED BLOOD COUNT 4.52 10^6/uL (4.00-5.40); WHITE BLOOD COUNT 5.3 10^3/uL (4.0-10.0)
[2022-11-04 11:05] LABS: BLOOD UREA NITROGEN 19 MG/DL (9-23); CALCIUM LEVEL 9.3 MG/DL (8.3-10.6); CARBON DIOXIDE LEVEL 27 MMOL/L (20-31); CHLORIDE LEVEL 102 MMOL/L (98-107); CREATININE FOR GFR 0.64 MG/DL (0.55-1.30); GLOMERULAR FILTRATION RATE > 60.0 (>32); GLUCOSE, FASTING 185 MG/DL (74-106); POTASSIUM SERUM 3.3 MMOL/L (3.5-5.1); SODIUM LEVEL 140 MMOL/L (136-145)
[2022-11-04 11:06] LABS: FREE T4 1.43 NG/DL (0.89-1.76)
[2022-11-04 11:07] LABS: THYROID STIMULATING HORMONE 3.654 uIU/ML (0.55-4.78)
== END ==
LOC: SKLAB5 11:19
PROVIDERS: ATTEND Internal Medicine
DX: E03.9 Hypothyroidism, unspecified (principal); G20 Parkinson's disease

== ENCOUNTER → 2023-07-12 | Outpatient (REF) | payer MEDICARE | LOC: SKLAB5 08:27 | PROVIDERS: ATTEND Nurse Practitioner Family | DX: R05.9 Cough, unspecified (principal) ==

== ENCOUNTER → 2023-07-12 | Outpatient (REF) | payer MEDICARE ==
[2023-07-12 11:10] LABS: BASO % 0.2 % (0.0-1.0); HEMATOCRIT 40.2 % (36.0-47.0); HEMOGLOBIN 12.8 g/dl (12.0-15.5); LYMPH # 0.4 10^3/uL (1.5-5.0); LYMPH % 7.1 % (24.0-44.0); MEAN CORPUSCULAR HEMOGLOBIN 29.8 pg (27.0-33.0); MEAN CORPUSCULAR HGB CONC 31.8 g/dl (32.0-36.5); MEAN CORPUSCULAR VOLUME 93.7 fl (80.0-96.0); MONO # 0.5 10^3/uL (0.0-0.8); MONO % 8.9 % (2.0-8.0); NEUTROPHILS # 4.6 10^3/uL (1.5-8.5); NEUTROPHILS % 83.3 % (36.0-66.0); PLATELET COUNT, AUTOMATED 146 10^3/uL (150-450); RED BLOOD COUNT 4.29 10^6/uL (4.00-5.40); WHITE BLOOD COUNT 5.5 10^3/uL (4.0-10.0)
[2023-07-12 11:37] LABS: ALBUMIN 2.6 G/DL (3.2-5.2); ALKALINE PHOSPHATASE 119 U/L (46-116); ALT/SGPT 43 U/L (7.0-40); AST/SGOT 37 U/L (<34); BILIRUBIN,TOTAL 0.8 MG/DL (0.3-1.2); BLOOD UREA NITROGEN 30 MG/DL (9-23); CALCIUM LEVEL 8.4 MG/DL (8.3-10.6); CARBON DIOXIDE LEVEL 27 MMOL/L (20-31); CHLORIDE LEVEL 108 MMOL/L (98-107); CREATININE FOR GFR 0.75 MG/DL (0.55-1.30); GLOMERULAR FILTRATION RATE > 60.0 (>32); GLUCOSE, FASTING 110 MG/DL (74-106); POTASSIUM SERUM 3.6 MMOL/L (3.5-5.1); SODIUM LEVEL 141 MMOL/L (136-145); TOTAL PROTEIN 5.9 G/DL (5.7-8.2)
== END ==
LOC: SKLAB5 10:28
PROVIDERS: ATTEND Nurse Practitioner Family
DX: J18.9 Pneumonia, unspecified organism (principal)